=== PATIENT | female | born 1940 | race African-American/Black ===

== ENCOUNTER 2017-08-11 16:49 | Inpatient (IN) | payer MEDICARE, OTHER ==
[~2017-08-11] VITALS: Ht 157.5 cm; Wt 54.4 kg
[2017-08-11] MEDS ORDERED: Sodium Chloride 500ML 500 ML IV ONE (17:04)
[2017-08-11] MEDS ORDERED: CRESTOR10 M2 ORAL (17:10)
[2017-08-11] MEDS ORDERED: LEVOTHYROXINE50 MCG ORAL (17:10)
[2017-08-11] MEDS ORDERED: ALPRAZOLAM0.5 MG PO (17:10)
[2017-08-11] MEDS ORDERED: LEXAPRO20 MG ORAL (17:10)
[2017-08-11] MEDS ORDERED: CILOSTAZOL100 MG PO (17:10)
[2017-08-11] MEDS ORDERED: ATENOLOL50 MG ORAL (17:10)
[2017-08-11] MEDS ORDERED: RIOMET500 MG/5 M PO (17:10)
[2017-08-11] MEDS ORDERED: VITAMIN D400 INTLU ORAL (17:10)
[2017-08-11] MEDS ORDERED: TRAMADOL HCL50 MG ORAL (17:10)
[2017-08-11 17:20] VITALS: BP 123/56
[2017-08-11 18:05] LABS: BASOPHILS % (AUTO) 0.8 % (0.0-2.0); EOSINOPHILS % (AUTO) 9.9 % (0.0-3.0); HEMATOCRIT 28.1 % (37.0-47.0); HEMOGLOBIN 9.1 G/DL (12.0-16.0); LYMPHOCYTES % (AUTO) 18.8 % (20.0-45.0); MEAN CORPUSCULAR VOLUME 97 FL (80-99); MONOCYTES % (AUTO) 13.2 % (1.0-10.0); NEUTROPHILS % (AUTO) 57.3 % (45.0-75.0); PLATELET COUNT 152 K/UL (150-450); RED BLOOD COUNT 2.88 M/UL (4.20-5.40); RED CELL DISTRIBUTION WIDTH 12.6 % (11.6-14.8); WHITE BLOOD COUNT 7.6 K/UL (4.8-10.8)
[2017-08-11 18:20] LABS: INR 1.7 (0.9-1.1)
[2017-08-11 18:30] LABS: APPEARANCE,URINE SLIGHTLY CLOUDY; BILIRUBIN, URINE 1+ (NEGATIVE); COLOR,URINE AMBER; GLUCOSE, URINE (UA) NEGATIVE (NEGATIVE); KETONES,URINE 1+ (NEGATIVE); LEUKOCYTE ESTERASE ,URINE 2+ (NEGATIVE); NITRITE,URINE POSITIVE (NEGATIVE); PH,URINE 5 (4.5-8.0); PROTEIN,URINE 1+ (NEGATIVE); UROBILINOGEN,URINE 4 MG/DL (0.0-1.0)
[2017-08-11 19:07] VITALS: BP 110/53
--- NOTE | 2017-08-11 19:14 | Emergency Room Report ---
History of Present Illness General Chief Complaint: General Complaint Source: EMS Present Illness HPI Patient was brought into the emergency department today for episode of dizziness weakness and possible syncope. Patient apparently was watching TV when patient became unresponsive patient's blood pressure was checked by the caregiver noted to be very low blood pressure paramedics arrived and gave patient fluids and patient was transferred here for further evaluation. Patient is baseline nonverbal has a G-tube and has severe Parkinson's disease. No further history is available other than what was given from the caregivers. Patient does not have a history of cough runny nose sore throat fever. No history of vomiting or diarrhea. Symptoms noted to be severe it has not happened before.No other modifying factors. No other associated signs and symptoms. No other complaints were noted. Allergies: Coded Allergies: CLINDAMYCIN (Verified Allergy, Unknown, 08/11/17) IODINE (Verified Allergy, Unknown, 08/11/17) LATEX (Verified Allergy, Unknown, 08/11/17) PENICILLINS (Verified Allergy, Unknown, 08/11/17) QUETIAPINE (Verified Allergy, Unknown, 08/11/17) SULFA (SULFONAMIDE ANTIBIOTICS) (Unverified Allergy, Unknown, 08/11/17) TETANUS VACCINES AND TOXOID (Unverified Allergy, Unknown, 08/11/17) Uncoded Allergies: FISH (Allergy, Unknown, 08/11/17) TAPE ADHERENT (Allergy, Unknown, 08/11/17) Patient History Past Medical History: other - Parkinson's diseas Past Surgical History: other - G-tube Social History: Denies: smoking, alcohol use, drug use Social History Narrative has caregivers Reviewed Nursing Documentation: PMH: Agreed, PSxH: Agreed Nursing Documentation-PM Past Medical History: No History, Except For Review of Systems All Other Systems: limited - do to poor mental condition Physical Exam Vital Signs Date Time Temp Pulse Resp B/P (MAP) Pulse Ox O2 Delivery O2 Flow Rate FiO2 08/11/17 16:45 97.3 71 18 110/75 97 Room Air 97.3 Sp02 EP Interpretation: reviewed, normal General Appearance: alert, moderate distress Head: atraumatic Eyes: bilateral eye normal inspection ENT: normal ENT inspection, moist mucus membranes Neck: normal inspection, full range of motion Respiratory: normal inspection, lungs clear, normal breath sounds, no respiratory distress, no retraction, no wheezing Cardiovascular #1: regular rate, rhythm, no edema Gastrointestinal: normal inspection, non tender, soft, no hernia, other - G- tube in place Genitourinary: no CVA tenderness Musculoskeletal: other - contractures Neurologic: alert Psychiatric: other - nonverbal Skin: normal inspection, normal color, no rash Procedures Critical Care Time Critical Care Time Patient had a critical medical condition which untreated could potentially result in life or limb threatening injury. Total critical care time excluding procedures was approximately 45 minutes.ecause patient had low blood pressure require multiple exams and fluid boluses Medical Decision Making Diagnostic Impression: Primary Impression: Hypotension Additional Impression: UTI (urinary tract infection) ER Course Patient presents emergency department today with low blood pressure and possible syncope. Differential considerations include acute electrolyte abnormality, acute infectious process, dehydration, acute arrhythmia just to name a few. Given patient's low blood pressure patient was given fluids with good improvement in symptoms. Patient's EKG did not show any evidence of ST segment changes. Troponin was negative. However given patient's presentation I felt the patient require admission to the hospital. There is evidence of UTI and questionable evidence of pneumonia therefore patient was started on Levaquin. Case was discussed with Dr. Thang Tom. Patient will be admitted to telemetry for further treatment. Labs Test 08/11/17 17:40 08/11/17 17:45 08/11/17 19:45 White Blood Count 7.6 K/UL (4.8-10.8) Red Blood Count 2.88 M/UL (4.20-5.40) Hemoglobin 9.1 G/DL (12.0-16.0) Hematocrit 28.1 % (37.0-47.0) Mean Corpuscular Volume 97 FL (80-99) Mean Corpuscular Hemoglobin 31.7 PG (27.0-31.0) Mean Corpuscular Hemoglobin Concent 32.5 G/DL (32.0-36.0) Red Cell Distribution Width 12.6 % (11.6-14.8) Platelet Count 152 K/UL (150-450) Mean Platelet Volume 7.9 FL (6.5-10.1) Neutrophils (%) (Auto) 57.3 % (45.0-75.0) Lymphocytes (%) (Auto) 18.8 % (20.0-45.0) Monocytes (%) (Auto) 13.2 % (1.0-10.0) Eosinophils (%) (Auto) 9.9 % (0.0-3.0) Basophils (%) (Auto) 0.8 % (0.0-2.0) Prothrombin Time 17.4 SEC (9.30-11.50) Prothromb Time International Ratio 1.7 (0.9-1.1) Activated Partial Thromboplast Time 51 SEC (23-33) Urine Color Annabelle Urine Appearance Slightly cloudy Urine pH 5 (4.5-8.0) Urine Specific [place] 1.020 (1.005-1.035) Urine Protein 1+ (NEGATIVE) Urine Glucose (UA) Negative (NEGATIVE) Urine Ketones 1+ (NEGATIVE) Urine Occult Blood 3+ (NEGATIVE) Urine Nitrite Positive (NEGATIVE) Urine Bilirubin 1+ (NEGATIVE) Urine Ictotest Negative Urine Urobilinogen 4 MG/DL (0.0-1.0) Urine Leukocyte Esterase 2+ (NEGATIVE) Urine RBC 2-4 /HPF (0 - 2) Urine WBC 5-10 /HPF (0 - 2) Urine Squamous Epithelial Cells Moderate /LPF (NONE/OCC) Urine Bacteria Many /HPF (NONE) Sodium Level 143 MMOL/L (136-145) Potassium Level 4.1 MMOL/L (3.5-5.1) Chloride Level 112 MMOL/L (98-107) Carbon Dioxide Level 27 MMOL/L (21-32) Anion Gap 4 mmol/L (5-15) Blood Urea Nitrogen 23 mg/dL (7-18) Creatinine 0.7 MG/DL (0.55-1.30) Estimat Glomerular Filtration Rate mL/min (>60) Glucose Level 93 MG/DL (74-106) Calcium Level 8.9 MG/DL (8.5-10.1) Total Bilirubin 0.5 MG/DL (0.2-1.0) Aspartate Amino Transf (AST/SGOT) 79 U/L (15-37) Alanine Aminotransferase (ALT/SGPT) 83 U/L (12-78) Alkaline Phosphatase 61 U/L (46-116) Total Protein 5.6 G/DL (6.4-8.2) Albumin 2.4 G/DL (3.4-5.0) Globulin 3.2 g/dL Albumin/Globulin Ratio 0.8 (1.0-2.7) EKG Diagnostic Results Rate: normal Rhythm: NSR ST Segments: no acute changes Rhythm Strip Diag. Results EP Interpretation: yes Rate: 66 Rhythm: NSR, no PVC's, no ectopy Chest X-Ray Diagnostic Results Chest X-Ray Diagnostic Results : Chest X-Ray Ordered: Yes # of Views/Limited/Complete: 1 View Indication: Other - syncope EP Interpretation: Yes Interpretation: no effusion, no pneumothorax, other - right middle lobe atelectasis Electronically Signed by: Electronically signed by Meena Gutierrez MD Last Vital Signs Date Time Temp Pulse Resp B/P (MAP) Pulse Ox O2 Delivery O2 Flow Rate FiO2 08/11/17 19:07 97.3 63 14 110/53 97 Room Air 97.3 Status: improved Disposition: ADMITTED INPATIENT Condition: Serious Referrals: NON PHYSICIAN (PCP) MEENA GUTIERREZ M.D. Aug 11, 2017 19:14
[2017-08-11 20:13] LABS: ANION GAP 4 mmol/L (5-15); BLOOD UREA NITROGEN 23 mg/dL (7-18); CALCIUM 8.9 MG/DL (8.5-10.1); CARBON DIOXIDE 27 MMOL/L (21-32); CHLORIDE 112 MMOL/L (98-107); CREATININE 0.7 MG/DL (0.55-1.30); POTASSIUM 4.1 MMOL/L (3.5-5.1); SODIUM 143 MMOL/L (136-145)
[2017-08-11 20:19] LABS: ALANINE AMINOTRANSFERASE 83 U/L (12-78); ALBUMIN 2.4 G/DL (3.4-5.0); ALBUMIN/GLOBULIN RATIO 0.8 (1.0-2.7); ALKALINE PHOSPHATASE 61 U/L (46-116); ASPARTATE AMINO TRANSFERASE 79 U/L (15-37); BILIRUBIN,TOTAL 0.5 MG/DL (0.2-1.0)
[2017-08-11 20:30] VITALS: BP 145/79
[2017-08-11 21:25] VITALS: BP 140/78
[2017-08-12] VITALS: BP 110/61
[2017-08-12] MEDS ORDERED: traMADol 50mg tab ORAL PRN (03:00)
[2017-08-12] MEDS ORDERED: Morphine Sulfate 2mg/ml Inj IM PRN ×2 (03:00→08:00)
[2017-08-12] MEDS ORDERED: LORazepam Inj 2mg/ml 1ml IV PRN (03:00)
[2017-08-12 04:00] VITALS: BP 125/70
[2017-08-12] MEDS: D5 1/2NS 1,000 ML IV SCH ×2 (04:44→21:48)
[2017-08-12] MEDS: metFORMIN 500mg tab ORAL SCH ×2 (06:14→17:34)
[2017-08-12 08:00] VITALS: BP 153/89
[2017-08-12] MEDS ORDERED: ALPRAZolam 0.5mg tab ORAL PRN (09:00)
[2017-08-12] MEDS ORDERED: ALPRAZolam 0.5mg tab ORAL SCH (09:00)
[2017-08-12 09:44] LABS: BASOPHILS % (AUTO) 0.6 % (0.0-2.0); EOSINOPHILS % (AUTO) 8.3 % (0.0-3.0); HEMATOCRIT 36.8 % (37.0-47.0); HEMOGLOBIN 12.2 G/DL (12.0-16.0); LYMPHOCYTES % (AUTO) 19.3 % (20.0-45.0); MEAN CORPUSCULAR VOLUME 95 FL (80-99); NEUTROPHILS % (AUTO) 60.8 % (45.0-75.0); PLATELET COUNT 194 K/UL (150-450); RED BLOOD COUNT 3.88 M/UL (4.20-5.40); RED CELL DISTRIBUTION WIDTH 12.1 % (11.6-14.8); WHITE BLOOD COUNT 7.5 K/UL (4.8-10.8)
[2017-08-12] MEDS: Vitamin D 400 INTLU TAB ORAL SCH (09:48)
[2017-08-12] MEDS: Cilostazol 100mg tab ORAL SCH (09:48)
[2017-08-12 10:09] LABS: ANION GAP 5 mmol/L (5-15); BLOOD UREA NITROGEN 20 mg/dL (7-18); CALCIUM 8.6 MG/DL (8.5-10.1); CARBON DIOXIDE 26 MMOL/L (21-32); CHLORIDE 109 MMOL/L (98-107); CREATININE 0.6 MG/DL (0.55-1.30); POTASSIUM 4.2 MMOL/L (3.5-5.1); SODIUM 140 MMOL/L (136-145)
--- NOTE | 2017-08-12 10:47 | Diagnostic Imaging Report ---
Indication: Cough Comparison: None. FINDINGS: Single view the chest obtained. Heart size is normal. The aorta is mildly ectatic. Lungs are clear. The bones are osteopenic. There is apparent dislocation of the right shoulder. Please correlate clinically. IMPRESSION: No acute cardiopulmonary disease identified Apparent dislocation of the right shoulder
[2017-08-12 12:00] VITALS: BP 137/105
[2017-08-12] MEDS: Aztreonam Inj 1 GM in NS 55 ML IVPB SCH ×2 (14:02→21:46)
--- NOTE | 2017-08-12 14:23 | General Progress Note ---
Progress Note Progress Note [id number] full note dictated thank you SIOBHAN TURPIN Aug 12, 2017 14:23
--- NOTE | 2017-08-12 15:45 | History and Physical Report ---
DATE OF ADMISSION: 08/11/2017 ATTENDING PHYSICIAN: Thang Tom D.O. CONSULTANTS: 1. Milan Alvarado M.D. 2. Erendira Simms M.D. 3. Rolf Muñoz M.D. 4. Jamie Lopez M.D 5. Pastor Pedraza M.D. CHIEF COMPLAINT: Low blood pressure, anemia, syncope, and UTI. BRIEF HISTORY: This is a 76-year-old female, who lives at home, presents with the above-mentioned diagnoses, admitted to telemetry for further care. Currently calm, nonverbal in bed with the hansard reporter at bedside. REVIEW OF SYSTEMS: Unavailable. PAST MEDICAL HISTORY: Advanced Parkinson, contracture, CVA, diabetes, UTI, and syncope. PAST SURGICAL HISTORY: G-tube, gastric bypass. MEDICATIONS: Lipitor, levofloxacin, Tenormin, , Xanax, Synthroid, Glucophage, and Ultram. ALLERGIES: Clindamycin, iodine, levofloxacin, penicillin, quetiapine, sulfa. SOCIAL HISTORY: No smoking. No alcohol. No intravenous drug abuse. FAMILY HISTORY: Noncontributory. PHYSICAL EXAMINATION: GENERAL: Lethargic in bed, nonverbal. VITAL SIGNS: Temperature is 98, pulse 76, respirations 21, blood pressure 153/89. CARDIOVASCULAR: No murmur. LUNGS: Distant, poor exchange. ABDOMEN: Bowel sounds distant. EXTREMITIES: Show no cyanosis, clubbing, or edema. NEUROLOGIC: Contracted upper extremity, weak, in bed, not responding to verbal commands. LABORATORY DATA: Hemoglobin 9.1, otherwise, CBC is normal. BMP shows chloride 112, BUN 23. AST 79, ALT is 83. Albumin 2.4. Urinalysis shows 2+ leukocyte esterase, 1+ protein, 1+ ketones 3+ occult blood. ASSESSMENT: 1. Low blood pressure. 2. Anemia. 3. Syncope. 4. Hypoalbumin. 5. Urinary tract infection. 6. Parkinson. 7. Contracture. 8. Cerebrovascular accident. 9. Diabetes. PLAN: 1. Blood pressure and blood sugar control. 2. Dietary followup. 3. OT, PT, and dietary evaluation. 4. Antibiotics per Infectious Disease. 5. Resume home medications. 6. We will continue to follow up this patient. Thang Tom D.O. DR: Yoni JOB#: [id number] CC:
[2017-08-12 16:00] VITALS: BP 164/75
[2017-08-12] MEDS: ALPRAZolam 0.5mg tab GT PRN (16:20)
[2017-08-12] MEDS: traMADol 50mg tab GT PRN (16:20)
--- NOTE | 2017-08-12 17:03 | Cardiology Progress Note ---
Assessment/Plan Assessment/Plan The patient is seen and examined, full consult note will be dictated shortly. Objective Last 24 Hour Vital Signs Date Time Temp Pulse Resp B/P (MAP) Pulse Ox O2 Delivery O2 Flow Rate FiO2 08/12/17 16:00 97.5 73 20 164/75 95 Room Air 97.5 08/12/17 12:00 71 08/12/17 12:00 97.6 73 20 137/105 94 Room Air 97.6 08/12/17 09:48 76 153/89 08/12/17 08:00 76 08/12/17 08:00 98.2 76 21 153/89 96 Room Air 98.2 08/12/17 04:00 98.2 76 20 125/70 99 Room Air 98.2 08/12/17 04:00 79 08/12/17 00:00 97.5 69 20 110/61 95 Room Air 97.5 08/12/17 00:00 64 08/11/17 21:30 97.6 66 14 140/78 99 Room Air 97.6 08/11/17 21:25 97.6 66 14 140/78 99 Room Air 97.6 08/11/17 20:30 97.8 65 11 145/79 99 Room Air 97.8 08/11/17 19:07 97.3 63 14 110/53 97 Room Air 97.3 08/11/17 17:20 97.3 66 18 123/56 97 Room Air 97.3 Intake and Output 08/11/17 08/12/17 19:00 07:00 Intake Total 1000 ml Balance 1000 ml IV Total 1000 ml # Voids 1 6 Laboratory Tests Test 08/11/17 17:40 08/11/17 17:45 08/11/17 19:45 08/12/17 09:20 White Blood Count 7.6 K/UL (4.8-10.8) 7.5 K/UL (4.8-10.8) Red Blood Count 2.88 M/UL (4.20-5.40) L 3.88 M/UL (4.20-5.40) L Hemoglobin 9.1 G/DL (12.0-16.0) L 12.2 G/DL (12.0-16.0) # Hematocrit 28.1 % (37.0-47.0) L 36.8 % (37.0-47.0) #L Mean Corpuscular Volume 97 FL (80-99) 95 FL (80-99) Mean Corpuscular Hemoglobin 31.7 PG (27.0-31.0) H 31.3 PG (27.0-31.0) H Mean Corpuscular Hemoglobin Concent 32.5 G/DL (32.0-36.0) 33.1 G/DL (32.0-36.0) Red Cell Distribution Width 12.6 % (11.6-14.8) 12.1 % (11.6-14.8) Platelet Count 152 K/UL (150-450) 194 K/UL (150-450) Mean Platelet Volume 7.9 FL (6.5-10.1) 8.3 FL (6.5-10.1) Neutrophils (%) (Auto) 57.3 % (45.0-75.0) 60.8 % (45.0-75.0) Lymphocytes (%) (Auto) 18.8 % (20.0-45.0) L 19.3 % (20.0-45.0) L Monocytes (%) (Auto) 13.2 % (1.0-10.0) H 11.0 % (1.0-10.0) H Eosinophils (%) (Auto) 9.9 % (0.0-3.0) H 8.3 % (0.0-3.0) H Basophils (%) (Auto) 0.8 % (0.0-2.0) 0.6 % (0.0-2.0) Prothrombin Time 17.4 SEC (9.30-11.50) H Prothromb Time International Ratio 1.7 (0.9-1.1) H Activated Partial Thromboplast Time 51 SEC (23-33) H Urine Color Annabelle Urine Appearance Slightly cloudy Urine pH 5 (4.5-8.0) Urine Specific [place] 1.020 (1.005-1.035) Urine Protein 1+ (NEGATIVE) H Urine Glucose (UA) Negative (NEGATIVE) Urine Ketones 1+ (NEGATIVE) H Urine Occult Blood 3+ (NEGATIVE) H Urine Nitrite Positive (NEGATIVE) H Urine Bilirubin 1+ (NEGATIVE) H Urine Ictotest Negative Urine Urobilinogen 4 MG/DL (0.0-1.0) H Urine Leukocyte Esterase 2+ (NEGATIVE) H Urine RBC 2-4 /HPF (0 - 2) H Urine WBC 5-10 /HPF (0 - 2) H Urine Squamous Epithelial Cells Moderate /LPF (NONE/OCC) H Urine Bacteria Many /HPF (NONE) H Sodium Level 143 MMOL/L (136-145) 140 MMOL/L (136-145) Potassium Level 4.1 MMOL/L (3.5-5.1) 4.2 MMOL/L (3.5-5.1) Chloride Level 112 MMOL/L (98-107) H 109 MMOL/L (98-107) H Carbon Dioxide Level 27 MMOL/L (21-32) 26 MMOL/L (21-32) Anion Gap 4 mmol/L (5-15) L 5 mmol/L (5-15) Blood Urea Nitrogen 23 mg/dL (7-18) H 20 mg/dL (7-18) H Creatinine 0.7 MG/DL (0.55-1.30) 0.6 MG/DL (0.55-1.30) Estimat Glomerular Filtration Rate mL/min (>60) mL/min (>60) Glucose Level 93 MG/DL (74-106) 118 MG/DL (74-106) H Calcium Level 8.9 MG/DL (8.5-10.1) 8.6 MG/DL (8.5-10.1) Total Bilirubin 0.5 MG/DL (0.2-1.0) Aspartate Amino Transf (AST/SGOT) 79 U/L (15-37) H Alanine Aminotransferase (ALT/SGPT) 83 U/L (12-78) H Alkaline Phosphatase 61 U/L (46-116) Total Protein 5.6 G/DL (6.4-8.2) L Albumin 2.4 G/DL (3.4-5.0) L Globulin 3.2 g/dL Albumin/Globulin Ratio 0.8 (1.0-2.7) L JANELLE SOUZA Aug 12, 2017 17:03
[2017-08-12 18:46] LABS: APPEARANCE,URINE CLEAR; BILIRUBIN, URINE NEGATIVE (NEGATIVE); COLOR,URINE AMBER; GLUCOSE, URINE (UA) NEGATIVE (NEGATIVE); KETONES,URINE NEGATIVE (NEGATIVE); LEUKOCYTE ESTERASE ,URINE 1+ (NEGATIVE); NITRITE,URINE NEGATIVE (NEGATIVE); PH,URINE 5 (4.5-8.0); PROTEIN,URINE NEGATIVE (NEGATIVE); UROBILINOGEN,URINE 8 MG/DL (0.0-1.0)
--- NOTE | 2017-08-12 19:30 | Consultation ---
DATE OF CONSULTATION: 08/12/2017 CONSULTING PHYSICIAN: Pastor Pedraza M.D. CHIEF COMPLAINT: Elevated residuals, anemia. HISTORY OF PRESENT ILLNESS: Most of the history per chart. This is a 76-year-old female with past medical history of Parkinson disease, history of dysphagia with G-tube, hypothyroidism, hypercholesterolemia, and vitamin D deficiency, admitted to the hospital with possible syncope and low blood pressure. Currently, the GI issue would be that the patient has a high residuals on the G-tube and GI consult requested for further evaluation. PAST MEDICAL HISTORY: 1. Parkinson disease. 2. Dysphagia with G-tube. 3. Hypothyroidism. 4. Diabetes. 5. Vitamin D deficiency. ALLERGIES: Clindamycin, iodine, latex, levofloxacin, penicillin, quetiapine, sulfa, tetanus shot. SOCIAL HISTORY: Currently lives at home with a caregiver. No recent history of tobacco, alcohol, or IV drug abuse. FAMILY HISTORY: Noncontributory. REVIEW OF SYSTEMS: Limited. PHYSICAL EXAMINATION: VITAL SIGNS: Temperature is 98.2 degrees, pulse is 72, respirations 21, and blood pressure is 152/89. HEENT: Normocephalic and atraumatic. Sclerae anicteric. NECK: Supple. No lymphadenopathy. CARDIOVASCULAR: Regular rhythm. Plus S1 and S2. LUNGS: Decreased breath sounds bilateral bases on supine exam. ABDOMEN: Soft. Bowel sounds are present. No rebound. No guarding. No peritoneal sign. G-tube placed in the left upper quadrant. EXTREMITIES: No cyanosis. No clubbing. No edema. LABORATORY DATA: White count 7.5, hemoglobin 12, hematocrit 36, and platelet count is 194,000. Chem-7, sodium 140 potassium 4.2, BUN is 20, and creatinine is 0.6. AST 79 and AST is 83. Albumin is 2.4. ASSESSMENT AND PLAN: A 76-year-old female with Parkinson disease with the gastrostomy tube. Apparently, she is not tolerating tube feeding because of elevated residuals, but given the Parkinson disease, unfortunately we cannot give any Reglan. Plan to get a KUB to rule out stool impaction, although nurses stated the patient had a bowel movement yesterday. Repeated liver function tests for tomorrow given mild transaminitis. Restarted tube feeding and monitor. Follow with rest of taking care of this patient. I want to thank Dr. Thang Tom for this kind referral. Pastor Pedraza M.D. DR: Holly JOB#: [id number] CC: Thang Tom D.O.
[2017-08-12 20:00] VITALS: BP 111/59
[2017-08-12] MEDS: Atorvastatin 20mg tab ORAL SCH (21:47)
[2017-08-12] MEDS: Heparin 5000 units/ml inj SUBQ SCH (21:49)
--- NOTE | 2017-08-12 23:40 | Consultation ---
Consult Note Consult Note ID [id number] ANDERSON NEFF M.D. Aug 12, 2017 23:40
[2017-08-13] VITALS: BP 139/77
--- NOTE | 2017-08-13 00:15 | Consultation ---
DATE OF CONSULTATION: 08/12/2017 NEPHROLOGY CONSULTATION CONSULTING PHYSICIAN: Erendira Simms M.D. REFERRING PHYSICIAN: Thang Tom D.O. REASON FOR CONSULTATION: Electrolyte imbalance. HISTORY OF PRESENT ILLNESS: The patient is a very unfortunate 76-year-old female with past medical history significant for history of diabetes, hypertension, dyslipidemia, apparently about 12 years ago, the patient had a stroke and post first stroke, she was able to walk. She continued to have probably multiple strokes and she ended up having a contraction on the right upper extremity, but she was able to move the right lower extremity. Later on, she probably had another stroke and got the left-sided weakness. She basically later on was diagnosed with Parkinson disease and being bedbound and has 24-hour caregiver. Apparently, the patient was at home with her caregiver and she found to be unconscious and the caregiver checked her blood pressure, which found to be low. The patient was brought into the emergency room, was given bolus of intravenous fluids, and was admitted to the telemetry unit. I was called for management of renal disease and electrolyte imbalance. PAST MEDICAL HISTORY: 1. History of hypertension. 2. History of diabetes. 3. History of Parkinson disease. 4. History of multiple strokes. 5. History of hypothyroidism. 6. History of dyslipidemia. 7. History of bedbound and contraction. PAST SURGICAL HISTORY: History of multiple PEG placement. MEDICATIONS: Home medications includin. Xanax 0.5 mg p.r.n. 2. Atenolol 50 mg p.o. daily. 3. 100 mg p.o. daily. 4. Lexapro 20 mg p.o. daily. 5. Levothyroxine 50 mcg daily. 6. Metformin 500 mg p.o. b.i.d. 7. Crestor 10 mg p.o. daily. 8. Tramadol 50 mg p.o. daily. 9. Vitamin D 400 units p.o. daily. FAMILY HISTORY: Noncontributory. REVIEW OF SYSTEMS: Very limited, basically obtained through the 24-hour caregiver, who has been at bedside.GENERAL: There is no weight loss. No fever or chills as reported. PULMONARY: There was no cough or sputum. CARDIOVASCULAR: No palpitation or chest pain. GASTROINTESTINAL: Has a PEG, which she has been receiving Glucerna 1.2 44 mL at home with some residual. GENITOURINARY: No dysuria, frequency, or hematuria. PHYSICAL EXAMINATION: VITAL SIGNS: The patient had temperature of 98 degrees, blood pressure of 110/75, pulse rate of 71, and respiratory rate of 18. HEAD AND NECK: No JVP. No LAD. No thyromegaly. Extraocular movements intact. Pupils are reactive to light and accommodation. LUNGS: Has decreased breathing sounds on the both sides. CARDIAC: Regular rate and rhythm. S1 and S2. No murmur. No rub. ABDOMEN: Soft. PEG is in place. EXTREMITIES: No edema. No clubbing. No cyanosis. LABORATORY AND DIAGNOSTIC DATA: Lab values on admission, the patient had sodium 143, potassium 4.1, chloride 102, bicarbonate 27, BUN is 22, creatinine of 0.7, glucose of 93, and calcium 8.9. AST 79, ALT of 83. Total protein of 5.6. Globulin of 2.4. CBC revealed WBC count of 7.6, hemoglobin of 9.1, hematocrit of 28, and platelet count of 152. UA revealed specific gravity of 1.020, pH of 5, ketones 1+, blood 3+, nitrite positive, RBCs 2 to 4, and WBCs 5 to 10. INR of 1.7. She had a chest x-ray, which showed no cardiopulmonary disease. ASSESSMENT: 1. , most likely due to dehydration and prerenal azotemia. 2. Urinary tract infection. 3. History of Parkinson disease. 4. History of multiple stroke. 5. History of diabetes. 6. History of hypertension. 7. History of hypothyroidism. PLAN: Plan for the patient is to repeat the UA. Check the random urine protein and creatinine ratio to calculate the proteinuria. Check the microalbumin level for diabetic evaluation and check the A1c, recommended for this patient is 6 to 7. Hold antihypertensive medications. At the end, I would like to thank, Dr. Thang Tom, for allowing me to participate in the care of this patient. Erendira Simms M.D. DR: Priscila JOB#: [id number] CC:
[2017-08-13] MEDS: ALPRAZolam 0.5mg tab GT PRN ×3 (02:46→20:21)
[2017-08-13] MEDS: traMADol 50mg tab GT PRN ×3 (02:47→20:22)
[2017-08-13 04:00] VITALS: BP 139/76
--- NOTE | 2017-08-13 05:00 | Consultation ---
DATE OF CONSULTATION: 08/13/2017 INFECTIOUS DISEASE CONSULTATION CONSULTING PHYSICIAN: Jamie Lopez M.D. REFERRING PHYSICIAN: Thang Tom D.O. REASON FOR CONSULTATION: Evaluation of the patient for urinary tract infection, sepsis, antibiotic management. HISTORY OF PRESENT ILLNESS: The patient is a 76-year-old female with multiple medical problems, who lives at home with caregivers, was brought to the hospital due to the hypertension and lethargy. The patient was admitted with impression of sepsis, possible urinary tract infection. Infectious Disease consultation has been requested for further evaluation of the patient and antibiotic management. PAST MEDICAL HISTORY: 1. Diabetes. 2. History of recurrent UTI. 3. History of CVA. 4. History of contractions. 5. Parkinson disease. 6. History of G-tube placement and gastric bypass in the past. ALLERGIES: Multiple including clindamycin, iodine level, levofloxacin, penicillin, and sulfa. SOCIAL HISTORY: The patient lives at home with caregivers. FAMILY HISTORY: Noncontributory. REVIEW OF SYSTEMS: Unobtainable. Much of the information gathered through the chart and speaking to staff. PHYSICAL EXAMINATION: VITAL SIGNS: Temperature 97, blood pressure 139/77, pulse 86, and respiratory rate 18. HEENT: No pale conjunctivae. No icterus. NECK: No lymphadenopathy. CHEST: Clear. HEART: S1 and S2. ABDOMEN: Soft and nontender. PEG tube in place. EXTREMITIES: No cyanosis at this time. NEUROLOGIC: Awake and lethargic. LABORATORY AND DIAGNOSTIC DATA: Labs, white blood cells 7.5, hemoglobin 12, and platelets 194. UA shows 5 to 10 white blood cells. BUN 20 and creatinine 0.6. AST 79, ALT 82, and alkaline phosphatase 61. Chest x-ray, N[facility]. ASSESSMENT: The patient is a 76-year-old female with: 1. Possible sepsis. 2. Rule out urinary tract infection. 3. Transaminitis, rule out biliary disease, rule out chronic hepatitis B/C. PLAN: 1. We will continue the patient on aztreonam day #1. 2. Monitor CBC. 3. Monitor BMP. 4. Monitor cultures, blood and urine. 5. Monitor the patient's clinical course. 6. Ultrasound of the liver. 7. Hepatitis panel. 8. Based on the patient's clinical course and labs, we will do further recommendations. Thank you, Dr. Saunders, for allowing me to participate in the care of this patient. I will follow the patient with you during this hospitalization. Jamie Lopez M.D. DR: Michael JOB#: [id number] CC:
[2017-08-13] MEDS: Aztreonam Inj 1 GM in NS 55 ML IVPB SCH ×3 (05:15→20:22)
[2017-08-13] MEDS: metFORMIN 500mg tab ORAL SCH ×2 (07:30→16:59)
[2017-08-13 08:00] VITALS: BP 153/78
[2017-08-13] MEDS: Vitamin D 400 INTLU TAB ORAL SCH (08:30)
[2017-08-13] MEDS: Cilostazol 100mg tab ORAL SCH (08:30)
[2017-08-13] MEDS: Heparin 5000 units/ml inj SUBQ SCH ×2 (08:37→20:23)
--- NOTE | 2017-08-13 09:09 | General Progress Note ---
Assessment/Plan Problem List: (1) Hypoalbuminemia ICD Codes: E88.09 - Other disorders of plasma-protein metabolism, not elsewhere classified SNOMED: 645259636 (2) Parkinson disease ICD Codes: G20 - Parkinson's disease SNOMED: 35453003 (3) CVA (cerebral vascular accident) ICD Codes: I63.9 - Cerebral infarction, unspecified SNOMED: 848805968 (4) Syncopal episodes ICD Codes: R55 - Syncope and collapse SNOMED: 141110251 (5) Anemia ICD Codes: D64.9 - Anemia, unspecified SNOMED: 652581956 (6) Dehydration ICD Codes: E86.0 - Dehydration SNOMED: 33409844 (7) Hypotension ICD Codes: I95.9 - Hypotension, unspecified SNOMED: 25217204 (8) UTI (urinary tract infection) ICD Codes: N39.0 - Urinary tract infection, site not specified SNOMED: 00123735 Status: unchanged Assessment/Plan ot pt diet abx cbc bmp am Subjective Constitutional: Reports: weakness Allergies: Coded Allergies: CLINDAMYCIN (Verified Allergy, Unknown, 08/11/17) IODINE (Verified Allergy, Unknown, 08/11/17) LATEX (Verified Allergy, Unknown, 08/11/17) LEVOFLOXACIN (Verified Allergy, Unknown, rash, 08/11/17) PENICILLINS (Verified Allergy, Unknown, 08/11/17) QUETIAPINE (Verified Allergy, Unknown, 08/11/17) SULFA (SULFONAMIDE ANTIBIOTICS) (Unverified Allergy, Unknown, 08/11/17) TETANUS VACCINES AND TOXOID (Unverified Allergy, Unknown, 08/11/17) Uncoded Allergies: FISH (Allergy, Unknown, 08/11/17) TAPE ADHERENT (Allergy, Unknown, 08/11/17) All Systems: reviewed and negative except above Subjective calm in bed confused Objective Last 24 Hour Vital Signs Date Time Temp Pulse Resp B/P (MAP) Pulse Ox O2 Delivery O2 Flow Rate FiO2 08/13/17 08:30 71 153/78 08/13/17 08:00 97.2 71 18 153/78 95 97.2 08/13/17 04:00 72 08/13/17 04:00 97.2 70 18 139/76 97 97.2 08/13/17 00:00 67 3/4/18 00:00 97.7 69 16 139/77 95 97.7 08/12/17 20:00 97.5 70 16 111/59 96 97.5 08/12/17 20:00 76 08/12/17 17:33 164/75 08/12/17 16:00 76 08/12/17 16:00 97.5 73 20 164/75 95 Room Air 97.5 08/12/17 12:00 71 08/12/17 12:00 97.6 73 20 137/105 94 Room Air 97.6 08/12/17 09:48 76 153/89 Intake and Output 08/12/17 08/13/17 19:00 07:00 Intake Total 386 ml Balance 386 ml Intake Free Water 60 ml Tube Feeding 326 ml # Voids 2 4 Laboratory Tests 08/12/17 09:20: White Blood Count 7.5, Red Blood Count 3.88L, Hemoglobin 12.2#, Hematocrit 36.8# L, Mean Corpuscular Volume 95, Mean Corpuscular Hemoglobin 31.3H, Mean Corpuscular Hemoglobin Concent 33.1, Red Cell Distribution Width 12.1, Platelet Count 194, Mean Platelet Volume 8.3, Neutrophils (%) (Auto) 60.8, Lymphocytes (% ) (Auto) 19.3L, Monocytes (%) (Auto) 11.0H, Eosinophils (%) (Auto) 8.3H, Basophils (%) (Auto) 0.6, Sodium Level 140, Potassium Level 4.2, Chloride Level 109H, Carbon Dioxide Level 26, Anion Gap 5, Blood Urea Nitrogen 20H, Creatinine 0.6, Estimat Glomerular Filtration Rate , Glucose Level 118H, Calcium Level 8.6 08/12/17 18:00: Urine Color Annabelle, Urine Appearance Clear, Urine pH 5, Urine Specific [place] 1.020, Urine Protein Negative, Urine Glucose (UA) Negative, Urine Ketones Negative, Urine Occult Blood Negative, Urine Nitrite Negative, Urine Bilirubin Negative, Urine Ictotest Negative, Urine Urobilinogen 8H, Urine Leukocyte Esterase 1+H, Urine RBC 0-2, Urine WBC 5-10H, Urine Squamous Epithelial Cells ModerateH, Urine Bacteria Few, Urine Mucus FewH, Urine Random Creatinine [ Pending], Urine Random Microalbumin [Pending], Urine Random Total Protein 21H, Urine Random Sodium 168H, Urine Creatinine 75.1, Urine Microalbumin/Creatinine Ratio [Pending] Height (Feet): 5 Height (Inches): 2.00 Weight (Pounds): 120 General Appearance: lethargic EENT: normal ENT inspection Neck: normal alignment Cardiovascular: normal peripheral pulses, normal rate, regular rhythm Respiratory/Chest: chest wall non-tender, lungs clear, normal breath sounds Abdomen: normal bowel sounds, non tender, soft Extremities: normal inspection Edema: no edema noted Arm (L), no edema noted Arm (R), no edema noted Leg (L), no edema noted Leg (R), no edema noted Pedal (L), no edema noted Pedal (R), no edema noted Generalized Neurologic: motor weakness Skin: normal pigmentation, warm/dry BREN FLOWERS Aug 13, 2017 09:09
--- NOTE | 2017-08-13 09:29 | General Progress Note ---
Assessment/Plan Problem List: (1) Feeding by G-tube ICD Codes: Z93.1 - Gastrostomy status SNOMED: 893019632, 556230391 (2) DM (3) CVA (cerebral vascular accident) ICD Codes: I63.9 - Cerebral infarction, unspecified SNOMED: 446019478 (4) Hypoalbuminemia ICD Codes: E88.09 - Other disorders of plasma-protein metabolism, not elsewhere classified SNOMED: 796893906 (5) Parkinson disease ICD Codes: G20 - Parkinson's disease SNOMED: 51074507 (6) Anemia ICD Codes: D64.9 - Anemia, unspecified SNOMED: 920499670 Assessment/Plan tolerating GTF will increase rate to 55 fu labs dvt prophylaxis Subjective ROS Limited/Unobtainable: No Allergies: Coded Allergies: CLINDAMYCIN (Verified Allergy, Unknown, 08/11/17) IODINE (Verified Allergy, Unknown, 08/11/17) LATEX (Verified Allergy, Unknown, 08/11/17) LEVOFLOXACIN (Verified Allergy, Unknown, rash, 08/11/17) PENICILLINS (Verified Allergy, Unknown, 08/11/17) QUETIAPINE (Verified Allergy, Unknown, 08/11/17) SULFA (SULFONAMIDE ANTIBIOTICS) (Unverified Allergy, Unknown, 08/11/17) TETANUS VACCINES AND TOXOID (Unverified Allergy, Unknown, 08/11/17) Uncoded Allergies: FISH (Allergy, Unknown, 08/11/17) TAPE ADHERENT (Allergy, Unknown, 08/11/17) Objective Last 24 Hour Vital Signs Date Time Temp Pulse Resp B/P (MAP) Pulse Ox O2 Delivery O2 Flow Rate FiO2 08/13/17 08:30 71 153/78 08/13/17 08:00 97.2 71 18 153/78 95 97.2 08/13/17 04:00 72 08/13/17 04:00 97.2 70 18 139/76 97 97.2 08/13/17 00:00 67 08/13/17 00:00 97.7 69 16 139/77 95 97.7 08/12/17 20:00 97.5 70 16 111/59 96 97.5 08/12/17 20:00 76 08/12/17 17:33 164/75 08/12/17 16:00 76 08/12/17 16:00 97.5 73 20 164/75 95 Room Air 97.5 08/12/17 12:00 71 08/12/17 12:00 97.6 73 20 137/105 94 Room Air 97.6 08/12/17 09:48 76 153/89 Intake and Output 08/12/17 08/13/17 19:00 07:00 Intake Total 386 ml 1109 ml Balance 386 ml 1109 ml Intake Free Water 60 ml 30 ml IV Total 595 ml Tube Feeding 326 ml 484 ml # Voids 2 4 Laboratory Tests 08/12/17 18:00: Urine Color Annabelle, Urine Appearance Clear, Urine pH 5, Urine Specific [place] 1.020, Urine Protein Negative, Urine Glucose (UA) Negative, Urine Ketones Negative, Urine Occult Blood Negative, Urine Nitrite Negative, Urine Bilirubin Negative, Urine Ictotest Negative, Urine Urobilinogen 8H, Urine Leukocyte Esterase 1+H, Urine RBC 0-2, Urine WBC 5-10H, Urine Squamous Epithelial Cells ModerateH, Urine Bacteria Few, Urine Mucus FewH, Urine Random Creatinine [ Pending], Urine Random Microalbumin [Pending], Urine Random Total Protein 21H, Urine Random Sodium 168H, Urine Creatinine 75.1, Urine Microalbumin/Creatinine Ratio [Pending] Height (Feet): 5 Height (Inches): 2.00 Weight (Pounds): 120 General Appearance: no apparent distress EENT: normal ENT inspection Neck: supple Cardiovascular: normal rate Respiratory/Chest: decreased breath sounds Abdomen: normal bowel sounds, non tender, soft Extremities: non-tender STEPHANIE RICK Aug 13, 2017 09:29
[2017-08-13 12:00] VITALS: BP 157/104
--- NOTE | 2017-08-13 12:12 | Diagnostic Imaging Report ---
Indication: Abdominal pain Comparison: None Single view of the abdomen obtained Findings: Bones are osteopenic. The aorta is severely calcified. Degenerative changes of the spine noted. Bowel gas pattern is nonspecific. IMPRESSION: No acute findings
[2017-08-13 12:26] LABS: BASOPHILS % (AUTO) 0.9 % (0.0-2.0); EOSINOPHILS % (AUTO) 9.2 % (0.0-3.0); HEMATOCRIT 40.1 % (37.0-47.0); HEMOGLOBIN 13.4 G/DL (12.0-16.0); LYMPHOCYTES % (AUTO) 21.6 % (20.0-45.0); MEAN CORPUSCULAR VOLUME 94 FL (80-99); MONOCYTES % (AUTO) 10.4 % (1.0-10.0); NEUTROPHILS % (AUTO) 57.9 % (45.0-75.0); PLATELET COUNT 204 K/UL (150-450); RED BLOOD COUNT 4.28 M/UL (4.20-5.40); RED CELL DISTRIBUTION WIDTH 11.7 % (11.6-14.8); WHITE BLOOD COUNT 7.6 K/UL (4.8-10.8)
[2017-08-13 12:41] LABS: ALANINE AMINOTRANSFERASE 60 U/L (12-78); ALBUMIN 2.6 G/DL (3.4-5.0); ALBUMIN/GLOBULIN RATIO 0.7 (1.0-2.7); ALKALINE PHOSPHATASE 68 U/L (46-116); ANION GAP 5 mmol/L (5-15); ASPARTATE AMINO TRANSFERASE 50 U/L (15-37); BILIRUBIN,TOTAL 0.6 MG/DL (0.2-1.0); BLOOD UREA NITROGEN 15 mg/dL (7-18); CALCIUM 8.9 MG/DL (8.5-10.1); CARBON DIOXIDE 26 MMOL/L (21-32); CHLORIDE 106 MMOL/L (98-107); CREATININE 0.6 MG/DL (0.55-1.30); POTASSIUM 4.6 MMOL/L (3.5-5.1); SODIUM 137 MMOL/L (136-145)
[2017-08-13] MEDS: D5 1/2NS 1,000 ML IV SCH (13:27)
--- NOTE | 2017-08-13 14:45 | Infectious Diseases Prog Note ---
Assessment/Plan Assessment/Plan ASSESSMENT: The patient is a 76-year-old female with: Probable sepsis Probable urinary tract infection. Weakness 2/2 to above Transaminitis, rule out biliary disease, rule out chronic hepatitis B/C. Chest x-ray, NAPD Diabetes. History of recurrent UTI. , UCx : 100K history of CVA. History of contractions. Parkinson disease. History of G-tube placement and gastric bypass in the past. ALLERGIES: Multiple including clindamycin, iodine level, levofloxacin, penicillin, and sulfa. PLAN: continue the patient on aztreonam day # 2/ 5 Monitor CBC Monitor BMP. Monitor cultures ( blood and urine ) Ultrasound of the liver Hepatitis panel. Subjective Constitutional: Denies: no symptoms, fever, chills, fatigue, anorexia, drenching sweats, other Allergies: Coded Allergies: CLINDAMYCIN (Verified Allergy, Unknown, 08/11/17) IODINE (Verified Allergy, Unknown, 08/11/17) LATEX (Verified Allergy, Unknown, 08/11/17) LEVOFLOXACIN (Verified Allergy, Unknown, rash, 08/11/17) PENICILLINS (Verified Allergy, Unknown, 08/11/17) QUETIAPINE (Verified Allergy, Unknown, 08/11/17) SULFA (SULFONAMIDE ANTIBIOTICS) (Unverified Allergy, Unknown, 08/11/17) TETANUS VACCINES AND TOXOID (Unverified Allergy, Unknown, 08/11/17) Uncoded Allergies: FISH (Allergy, Unknown, 08/11/17) TAPE ADHERENT (Allergy, Unknown, 08/11/17) Objective Vital Signs Last 24 Hour Vital Signs Date Time Temp Pulse Resp B/P (MAP) Pulse Ox O2 Delivery O2 Flow Rate FiO2 08/13/17 12:32 97.2 08/13/17 12:00 97.9 73 22 157/104 98 97.9 08/13/17 12:00 73 08/13/17 08:30 71 153/78 08/13/17 08:00 66 08/13/17 08:00 97.2 71 18 153/78 95 97.2 08/13/17 04:00 72 08/13/17 04:00 97.2 70 18 139/76 97 97.2 08/13/17 00:00 67 08/13/17 00:00 97.7 69 16 139/77 95 97.7 08/12/17 20:00 97.5 70 16 111/59 96 97.5 08/12/17 20:00 76 08/12/17 17:33 164/75 08/12/17 16:00 76 08/12/17 16:00 97.5 73 20 164/75 95 Room Air 97.5 Height (Feet): 5 Height (Inches): 2.00 Weight (Pounds): 120 HEENT: mucous membranes moist Respiratory/Chest: normal breath sounds Cardiovascular: regular rhythm Abdomen: soft, non tender Microbiology Date/Time Source Procedure Growth Status 08/11/17 17:40 Blood Blood Culture - Preliminary NO GROWTH AFTER 24 HOURS Resulted 08/11/17 17:45 Urine,Clean Catch Urine Culture - Preliminary Gram Negative Bacillus 1 Resulted Laboratory Tests Test 08/12/17 18:00 08/13/17 11:55 Urine Color Annabelle Urine Appearance Clear Urine pH 5 (4.5-8.0) Urine Specific [place] 1.020 (1.005-1.035) Urine Protein Negative (NEGATIVE) Urine Glucose (UA) Negative (NEGATIVE) Urine Ketones Negative (NEGATIVE) Urine Occult Blood Negative (NEGATIVE) Urine Nitrite Negative (NEGATIVE) Urine Bilirubin Negative (NEGATIVE) Urine Ictotest Negative Urine Urobilinogen 8 MG/DL (0.0-1.0) H Urine Leukocyte Esterase 1+ (NEGATIVE) H Urine RBC 0-2 /HPF (0 - 2) Urine WBC 5-10 /HPF (0 - 2) H Urine Squamous Epithelial Cells Moderate /LPF (NONE/OCC) H Urine Bacteria Few /HPF (NONE) Urine Mucus Few /LPF (NONE/OCC) H Urine Random Creatinine Pending Urine Random Microalbumin Pending Urine Random Total Protein 21 MG/DL (< 11.9) H Urine Random Sodium 168 mmol/L (20-110) H Urine Creatinine 75.1 MG/DL (30.0-125.0) Urine Microalbumin/Creatinine Ratio Pending White Blood Count 7.6 K/UL (4.8-10.8) Red Blood Count 4.28 M/UL (4.20-5.40) Hemoglobin 13.4 G/DL (12.0-16.0) Hematocrit 40.1 % (37.0-47.0) Mean Corpuscular Volume 94 FL (80-99) Mean Corpuscular Hemoglobin 31.3 PG (27.0-31.0) H Mean Corpuscular Hemoglobin Concent 33.5 G/DL (32.0-36.0) Red Cell Distribution Width 11.7 % (11.6-14.8) Platelet Count 204 K/UL (150-450) Mean Platelet Volume 8.7 FL (6.5-10.1) Neutrophils (%) (Auto) 57.9 % (45.0-75.0) Lymphocytes (%) (Auto) 21.6 % (20.0-45.0) Monocytes (%) (Auto) 10.4 % (1.0-10.0) H Eosinophils (%) (Auto) 9.2 % (0.0-3.0) H Basophils (%) (Auto) 0.9 % (0.0-2.0) Sodium Level 137 MMOL/L (136-145) Potassium Level 4.6 MMOL/L (3.5-5.1) Chloride Level 106 MMOL/L (98-107) Carbon Dioxide Level 26 MMOL/L (21-32) Anion Gap 5 mmol/L (5-15) Blood Urea Nitrogen 15 mg/dL (7-18) Creatinine 0.6 MG/DL (0.55-1.30) Estimat Glomerular Filtration Rate mL/min (>60) Glucose Level 100 MG/DL (74-106) Calcium Level 8.9 MG/DL (8.5-10.1) Total Bilirubin 0.6 MG/DL (0.2-1.0) Aspartate Amino Transf (AST/SGOT) 50 U/L (15-37) H Alanine Aminotransferase (ALT/SGPT) 60 U/L (12-78) Alkaline Phosphatase 68 U/L (46-116) Total Protein 6.1 G/DL (6.4-8.2) L Albumin 2.6 G/DL (3.4-5.0) L Globulin 3.5 g/dL Albumin/Globulin Ratio 0.7 (1.0-2.7) L Hepatitis A IgM Antibody Pending Hepatitis B Surface Antigen Pending Hepatitis B Core IgM Antibody Pending Hepatitis C Antibody Pending Current Medications Medications (Trade) Dose Ordered Sig/Alice Route PRN Reason Start Time Stop Time Status Last Admin Dose Admin Alprazolam (Xanax) 0.5 mg EVERY 8 HOURS PRN GT For Anxiety 3/3/18 13:45 08/19/17 08:59 08/13/17 12:33 Atenolol (Tenormin) 50 mg DAILY ORAL 08/12/17 09:00 09/11/17 08:59 08/13/17 08:30 Atorvastatin Calcium (Lipitor) 40 mg BEDTIME ORAL 08/12/17 21:00 09/11/17 20:59 08/12/17 21:47 Aztreonam 1 gm/ Sodium Chloride 55 ml @ 110 mls/hr Q8H IVPB 08/12/17 12:00 08/19/17 11:59 08/13/17 12:43 Cilostazol (Pletal) 100 mg DAILY ORAL 08/12/17 09:00 09/11/17 08:59 08/13/17 08:30 Clonidine HCl (Catapres Tab) 0.1 mg Q8H PRN ORAL sbp>160 08/12/17 17:15 09/11/17 17:14 08/12/17 17:33 Dextrose/Sodium Chloride 1,000 ml @ 60 mls/hr [id number] IV 08/12/17 04:30 09/11/17 04:29 08/13/17 13:27 Escitalopram Oxalate (Lexapro) 20 mg DAILY ORAL 08/12/17 09:00 09/11/17 08:59 08/13/17 08:30 Heparin Sodium (Porcine) (Heparin 5000 units/ml) 5,000 units EVERY 12 HOURS SUBQ 08/12/17 21:00 09/11/17 20:59 08/13/17 08:37 Levothyroxine Sodium (Synthroid) 50 mcg DAILY@0630 ORAL 08/12/17 06:30 09/11/17 06:29 08/13/17 07:30 Lorazepam (Ativan 2mg/ml 1ml) 1 mg Q4H PRN IV For Anxiety 08/12/17 03:00 08/19/17 02:59 Metformin HCl (Glucophage) 500 mg BIAC ORAL 08/12/17 06:30 09/11/17 06:29 08/13/17 07:30 Morphine Sulfate (Morphine Sulfate) 2 mg Q4H PRN IM MOD-SEVERE PAIN 4-10 08/12/17 08:00 08/19/17 02:59 Tramadol HCl (Ultram) 50 mg EVERY 8 HOURS PRN GT pain 08/12/17 13:45 08/19/17 02:59 08/13/17 12:32 Vitamin D (Vitamin D) 400 intlu DAILY ORAL 08/12/17 09:00 09/11/17 08:59 08/13/17 08:30 ANDERSON NEFF M.D. Aug 13, 2017 14:45
--- NOTE | 2017-08-13 15:29 | Cardiology Report ---
APPROVED REPORT EXAM: Two-dimensional and M-mode echocardiogram with Doppler and color Doppler. INDICATION Syncope M-Mode DIMENSIONS IVSd1.0 (0.7-1.1cm)Left Atrium (MM)3.5 (1.6-4.0cm) LVDd4.8 (3.5-5.6cm)Aortic Root2.9 (2.0-3.7cm) PWd1.4 (0.7-1.1cm)Aortic Cusp Exc.1.1 (1.5-2.0cm) IVSs1.7 cm LVDs2.9 (2.5-4.0cm) PWs1.9 cm Normal left ventricular chamber size, systolic function and wall motion. Left ventricular ejection fraction estimated to be 65-70 %. Mild left ventricular hypertrophy by 2-D. Trace posterior pericardial effusion . Right cardiac chamber sizes are within normal limits . Heavy Focal aortic valve sclerosis . Heavy Thickened mitral valve leaflets . Mitral annulus and aortic root calcification. Pulmonic valve not well visualized. Normal tricuspid valve structure. Subcostal views not obtained due to GI-.tube A color flow and spectral Doppler study was performed and revealed: Mild aortic regurgitation. Peak aortic valve gradient of 5 mm Hg and a mean of 2 mmHg. Aortic valve area 2.1 cm2 calculated by continuity equation. Mild mitral regurgitation. Mitral diastolic velocities suggest reduced left ventricular relaxation c/w mild LV diastolic dysfunction (Grade I ). Mild tricuspid regurgitation. Tricuspid systolic velocities suggests peak right ventricular systolic pressure of 25 mmHg, No Pulmonic regurgitation present
[2017-08-13 16:00] VITALS: BP 125/85
[2017-08-13] MEDS ORDERED: D5 1/2NS 1000ml IV ONE (16:37)
[2017-08-13] MEDS ORDERED: Sterile Water Irrig 1000ml IRRIG ONE (16:37)
[2017-08-13] MEDS ORDERED: Tubing IV Secondary IV ONE (16:37)
[2017-08-13] MEDS ORDERED: NEUPRO1 EAC1 TD (19:52)
[2017-08-13] MEDS ORDERED: NEUPRO1 EAC2 TD (19:52)
[2017-08-13 20:00] VITALS: BP 134/80
[2017-08-13] MEDS: Atorvastatin 20mg tab ORAL SCH (20:21)
--- NOTE | 2017-08-13 21:11 | Nephrology Progress Note ---
Assessment/Plan Assessment 1,EULALIA most likely due to dehydration and prerenal azotemia. 2. Urinary tract infection. 3. History of Parkinson disease. 4. History of multiple stroke. 5. History of diabetes. 6. History of hypertension. 7. History of hypothyroidism. Plan Plan continue ivf monitoring renal function avoid NSAID replace electrolyte as need it Subjective Constitutional: Reports: no symptoms HEENT: Reports: no symptoms Genitourinary: Reports: no symptoms Neurologic/Psychiatric: Reports: no symptoms Subjective pt is nit verbal Objective Objective Last 24 Hour Vital Signs Date Time Temp Pulse Resp B/P (MAP) Pulse Ox O2 Delivery O2 Flow Rate FiO2 08/13/17 16:00 97.2 75 20 125/85 98 97.2 08/13/17 16:00 77 08/13/17 12:32 97.2 08/13/17 12:00 97.9 73 22 157/104 98 97.9 08/13/17 12:00 73 08/13/17 08:30 71 153/78 08/13/17 08:00 66 08/13/17 08:00 97.2 71 18 153/78 95 97.2 08/13/17 04:00 72 08/13/17 04:00 97.2 70 18 139/76 97 97.2 08/13/17 00:00 67 08/13/17 00:00 97.7 69 16 139/77 95 97.7 Intake and Output 08/12/17 08/13/17 19:00 07:00 Intake Total 386 ml 1109 ml Balance 386 ml 1109 ml Intake Free Water 60 ml 30 ml IV Total 595 ml Tube Feeding 326 ml 484 ml # Voids 2 4 Laboratory Tests 08/13/17 11:55: White Blood Count 7.6, Red Blood Count 4.28, Hemoglobin 13.4, Hematocrit 40.1, Mean Corpuscular Volume 94, Mean Corpuscular Hemoglobin 31.3H, Mean Corpuscular Hemoglobin Concent 33.5, Red Cell Distribution Width 11.7, Platelet Count 204, Mean Platelet Volume 8.7, Neutrophils (%) (Auto) 57.9, Lymphocytes (%) (Auto) 21.6, Monocytes (%) (Auto) 10.4H, Eosinophils (%) (Auto) 9.2H, Basophils (%) ( Auto) 0.9, Sodium Level 137, Potassium Level 4.6, Chloride Level 106, Carbon Dioxide Level 26, Anion Gap 5, Blood Urea Nitrogen 15, Creatinine 0.6, Estimat Glomerular Filtration Rate , Glucose Level 100, Calcium Level 8.9, Total Bilirubin 0.6, Aspartate Amino Transf (AST/SGOT) 50H, Alanine Aminotransferase ( ALT/SGPT) 60, Alkaline Phosphatase 68, Total Protein 6.1L, Albumin 2.6L, Globulin 3.5, Albumin/Globulin Ratio 0.7L, Hepatitis A IgM Antibody [Pending], Hepatitis B Surface Antigen [Pending], Hepatitis B Core IgM Antibody [Pending], Hepatitis C Antibody [Pending] Height (Feet): 5 Height (Inches): 2.00 Weight (Pounds): 120 Objective HEAD AND NECK: No JVP. No LAD. No thyromegaly. Extraocular movements intact. Pupils are reactive to light and accommodation. LUNGS: Has decreased breathing sounds on the both sides. CARDIAC: Regular rate and rhythm. S1 and S2. No murmur. No rub. ABDOMEN: Soft. PEG is in place. EXTREMITIES: No edema. No clubbing. No cyanosis. SIOBHAN TURPIN Aug 13, 2017 21:11
[2017-08-14 00:32] VITALS: BP 126/81
[2017-08-14] MEDS: Aztreonam Inj 1 GM in NS 55 ML IVPB SCH ×2 (03:54→12:39)
[2017-08-14 04:00] VITALS: BP 135/76
[2017-08-14] MEDS: traMADol 50mg tab GT PRN ×2 (04:17→14:46)
[2017-08-14] MEDS: ALPRAZolam 0.5mg tab GT PRN ×2 (04:17→14:46)
[2017-08-14] MEDS: metFORMIN 500mg tab ORAL SCH ×2 (06:24→16:18)
[2017-08-14] MEDS: D5 1/2NS 1,000 ML IV SCH ×2 (06:24→22:59)
[2017-08-14 07:51] VITALS: BP 170/90
[2017-08-14] MEDS: Vitamin D 400 INTLU TAB ORAL SCH (08:13)
[2017-08-14] MEDS: Cilostazol 100mg tab ORAL SCH (08:13)
[2017-08-14] MEDS: Heparin 5000 units/ml inj SUBQ SCH ×2 (08:16→20:45)
--- NOTE | 2017-08-14 09:02 | Nephrology Progress Note ---
Assessment/Plan Assessment 1,EULALIA most likely due to dehydration and prerenal azotemia. 2. Urinary tract infection. 3. History of Parkinson disease. 4. History of multiple stroke. 5. History of diabetes. 6. History of hypertension. 7. History of hypothyroidism. Plan Plan iv antibiotic continue ivf monitoring renal function avoid NSAID replace electrolyte as need it Subjective ROS Limited/Unobtainable: Yes Constitutional: Reports: no symptoms HEENT: Reports: no symptoms Genitourinary: Reports: no symptoms Neurologic/Psychiatric: Reports: no symptoms Subjective career orientation teacher in her bedside Objective Objective Last 24 Hour Vital Signs Date Time Temp Pulse Resp B/P (MAP) Pulse Ox O2 Delivery O2 Flow Rate FiO2 08/14/17 08:13 170/90 08/14/17 08:13 79 170/90 08/14/17 07:51 97.9 79 20 170/90 97 Room Air 97.9 08/14/17 04:00 97.7 75 20 135/76 97 Room Air 97.7 08/14/17 03:37 74 08/14/17 00:32 96.8 71 19 126/81 96 96.8 08/13/17 23:55 77 08/13/17 20:06 78 08/13/17 20:00 97.7 78 20 134/80 95 97.7 08/13/17 16:00 97.2 75 20 125/85 98 97.2 08/13/17 16:00 77 08/13/17 12:32 97.2 08/13/17 12:00 97.9 73 22 157/104 98 97.9 08/13/17 12:00 73 Intake and Output 08/13/17 08/14/17 19:00 07:00 Intake Total 483 ml 1146 ml Output Total 400 ml Balance 483 ml 746 ml IV Total 443 ml 916 ml Tube Feeding 40 ml 230 ml Output Urine Total 400 ml # Voids 2 Laboratory Tests 08/13/17 11:55: White Blood Count 7.6, Red Blood Count 4.28, Hemoglobin 13.4, Hematocrit 40.1, Mean Corpuscular Volume 94, Mean Corpuscular Hemoglobin 31.3H, Mean Corpuscular Hemoglobin Concent 33.5, Red Cell Distribution Width 11.7, Platelet Count 204, Mean Platelet Volume 8.7, Neutrophils (%) (Auto) 57.9, Lymphocytes (%) (Auto) 21.6, Monocytes (%) (Auto) 10.4H, Eosinophils (%) (Auto) 9.2H, Basophils (%) ( Auto) 0.9, Sodium Level 137, Potassium Level 4.6, Chloride Level 106, Carbon Dioxide Level 26, Anion Gap 5, Blood Urea Nitrogen 15, Creatinine 0.6, Estimat Glomerular Filtration Rate , Glucose Level 100, Calcium Level 8.9, Total Bilirubin 0.6, Aspartate Amino Transf (AST/SGOT) 50H, Alanine Aminotransferase ( ALT/SGPT) 60, Alkaline Phosphatase 68, Total Protein 6.1L, Albumin 2.6L, Globulin 3.5, Albumin/Globulin Ratio 0.7L, Hepatitis A IgM Antibody [Pending], Hepatitis B Surface Antigen [Pending], Hepatitis B Core IgM Antibody [Pending], Hepatitis C Antibody [Pending] Height (Feet): 5 Height (Inches): 2.00 Weight (Pounds): 120 Objective HEAD AND NECK: No JVP. No LAD. No thyromegaly. Extraocular movements intact. Pupils are reactive to light and accommodation. LUNGS: Has decreased breathing sounds on the both sides. CARDIAC: Regular rate and rhythm. S1 and S2. No murmur. No rub. ABDOMEN: Soft. PEG is in place. EXTREMITIES: No edema. No clubbing. No cyanosis. SIOBHAN TURPIN Aug 14, 2017 09:02
[2017-08-14 09:18] LABS: BASOPHILS % (AUTO) 0.9 % (0.0-2.0); EOSINOPHILS % (AUTO) 5.9 % (0.0-3.0); HEMATOCRIT 41.8 % (37.0-47.0); HEMOGLOBIN 14.3 G/DL (12.0-16.0); LYMPHOCYTES % (AUTO) 19.5 % (20.0-45.0); MEAN CORPUSCULAR VOLUME 93 FL (80-99); MONOCYTES % (AUTO) 10.7 % (1.0-10.0); NEUTROPHILS % (AUTO) 63.1 % (45.0-75.0); PLATELET COUNT 220 K/UL (150-450); RED BLOOD COUNT 4.48 M/UL (4.20-5.40); RED CELL DISTRIBUTION WIDTH 11.7 % (11.6-14.8); WHITE BLOOD COUNT 8.9 K/UL (4.8-10.8)
[2017-08-14 09:32] LABS: ANION GAP 8 mmol/L (5-15); BLOOD UREA NITROGEN 13 mg/dL (7-18); CARBON DIOXIDE 25 MMOL/L (21-32); CHLORIDE 102 MMOL/L (98-107); CREATININE 0.6 MG/DL (0.55-1.30); POTASSIUM 4.3 MMOL/L (3.5-5.1); SODIUM 135 MMOL/L (136-145)
--- NOTE | 2017-08-14 10:52 | Diagnostic Imaging Report ---
Indication: Abnormal liver function tests Technique: Armando-scale and duplex images of the upper abdomen were obtained Comparison: none Findings: Exam is somewhat limited; patient unable to assist with breathing and positioning Gallbladder could not be visualized. Note that recent abdominal radiograph demonstrates cholecystectomy clips. Common bile duct measures 6 mm in diameter. No intrahepatic biliary ductal dilatation. Liver demonstrates normal echogenicity, no focal abnormality. Portal vein and hepatic veins are patent. Pancreas is obscured by bowel gas. Spleen is unremarkable. Left kidney measures 10.2 cm in length. Right kidney measures 9.9 cm length. Both kidneys demonstrate normal echogenicity. There is no hydronephrosis. No focal abnormality . Abdominal aorta is partially obscured by bowel gas, visualized portions are non-aneurysmal . Impression: Limited exam, as described Nonvisualized gallbladder, apparently surgically absent Negative for dilated ducts No other significant abnormality Note inability to visualize the pancreas and portions of the abdominal aorta
--- NOTE | 2017-08-14 10:58 | GI Progress Note ---
Assessment/Plan Problems: (1) Dehydration ICD Codes: E86.0 - Dehydration SNOMED: 12137899 (2) Anemia ICD Codes: D64.9 - Anemia, unspecified SNOMED: 815089654 (3) Hypoalbuminemia ICD Codes: E88.09 - Other disorders of plasma-protein metabolism, not elsewhere classified SNOMED: 670564722 (4) Feeding by G-tube ICD Codes: Z93.1 - Gastrostomy status SNOMED: 835695804, 218400325 (5) DM (6) Gastroparesis ICD Codes: K31.84 - Gastroparesis SNOMED: 463691999 Status: unchanged Status Narrative Discussed with Dr. Pedraza. Assessment/Plan KUB negative hep panel pending tolerating GTF will increase rate to 55 DM management, consider low dose erythromycin 50mg GT for GI motility if patient does not have history of arrhythmias. fu labs fu RD recs dvt prophylaxis d/w POC with caregiver at bedside. The patient was seen and examined at bedside and all new and available data was reviewed in the patients chart. I agree with the above findings, impression and plan. (Patient seen earlier today. Signature stamp does not reflect patient encounter time.). - Lisa Pedraza MD Subjective Subjective limited Objective Last 24 Hour Vital Signs Date Time Temp Pulse Resp B/P (MAP) Pulse Ox O2 Delivery O2 Flow Rate FiO2 08/14/17 08:13 170/90 08/14/17 08:13 79 170/90 08/14/17 07:51 97.9 79 20 170/90 97 Room Air 97.9 08/14/17 04:00 97.7 75 20 135/76 97 Room Air 97.7 08/14/17 03:37 74 08/14/17 00:32 96.8 71 19 126/81 96 96.8 08/13/17 23:55 77 08/13/17 20:06 78 08/13/17 20:00 97.7 78 20 134/80 95 97.7 08/13/17 16:00 97.2 75 20 125/85 98 97.2 08/13/17 16:00 77 08/13/17 12:32 97.2 08/13/17 12:00 97.9 73 22 157/104 98 97.9 08/13/17 12:00 73 Intake and Output 08/13/17 08/14/17 19:00 07:00 Intake Total 483 ml 1146 ml Output Total 400 ml Balance 483 ml 746 ml IV Total 443 ml 916 ml Tube Feeding 40 ml 230 ml Output Urine Total 400 ml # Voids 2 Laboratory Tests Test 08/13/17 11:55 08/14/17 07:50 White Blood Count 7.6 K/UL (4.8-10.8) 8.9 K/UL (4.8-10.8) Red Blood Count 4.28 M/UL (4.20-5.40) 4.48 M/UL (4.20-5.40) Hemoglobin 13.4 G/DL (12.0-16.0) 14.3 G/DL (12.0-16.0) Hematocrit 40.1 % (37.0-47.0) 41.8 % (37.0-47.0) Mean Corpuscular Volume 94 FL (80-99) 93 FL (80-99) Mean Corpuscular Hemoglobin 31.3 PG (27.0-31.0) H 32.0 PG (27.0-31.0) H Mean Corpuscular Hemoglobin Concent 33.5 G/DL (32.0-36.0) 34.3 G/DL (32.0-36.0) Red Cell Distribution Width 11.7 % (11.6-14.8) 11.7 % (11.6-14.8) Platelet Count 204 K/UL (150-450) 220 K/UL (150-450) Mean Platelet Volume 8.7 FL (6.5-10.1) 8.2 FL (6.5-10.1) Neutrophils (%) (Auto) 57.9 % (45.0-75.0) 63.1 % (45.0-75.0) Lymphocytes (%) (Auto) 21.6 % (20.0-45.0) 19.5 % (20.0-45.0) L Monocytes (%) (Auto) 10.4 % (1.0-10.0) H 10.7 % (1.0-10.0) H Eosinophils (%) (Auto) 9.2 % (0.0-3.0) H 5.9 % (0.0-3.0) H Basophils (%) (Auto) 0.9 % (0.0-2.0) 0.9 % (0.0-2.0) Sodium Level 137 MMOL/L (136-145) 135 MMOL/L (136-145) L Potassium Level 4.6 MMOL/L (3.5-5.1) 4.3 MMOL/L (3.5-5.1) Chloride Level 106 MMOL/L (98-107) 102 MMOL/L (98-107) Carbon Dioxide Level 26 MMOL/L (21-32) 25 MMOL/L (21-32) Anion Gap 5 mmol/L (5-15) 8 mmol/L (5-15) Blood Urea Nitrogen 15 mg/dL (7-18) 13 mg/dL (7-18) Creatinine 0.6 MG/DL (0.55-1.30) 0.6 MG/DL (0.55-1.30) Estimat Glomerular Filtration Rate mL/min (>60) mL/min (>60) Glucose Level 100 MG/DL (74-106) 128 MG/DL (74-106) H Calcium Level 8.9 MG/DL (8.5-10.1) 9.0 MG/DL (8.5-10.1) Total Bilirubin 0.6 MG/DL (0.2-1.0) Aspartate Amino Transf (AST/SGOT) 50 U/L (15-37) H Alanine Aminotransferase (ALT/SGPT) 60 U/L (12-78) Alkaline Phosphatase 68 U/L (46-116) Total Protein 6.1 G/DL (6.4-8.2) L Albumin 2.6 G/DL (3.4-5.0) L Globulin 3.5 g/dL Albumin/Globulin Ratio 0.7 (1.0-2.7) L Hepatitis A IgM Antibody Pending Hepatitis B Surface Antigen Pending Hepatitis B Core IgM Antibody Pending Hepatitis C Antibody Pending Microbiology Date/Time Source Procedure Growth Status 08/13/17 19:30 Straight Cath Urine Culture - Preliminary Resulted Height (Feet): 5 Height (Inches): 2.00 Weight (Pounds): 120 General Appearance: alert, thin Cardiovascular: normal rate Respiratory/Chest: normal breath sounds, no respiratory distress Abdominal Exam: soft, GT site - c/d/i Munoz,Tamiko Jonas N.P. Aug 14, 2017 10:58 STEPHANIE PEDRAZA Aug 21, 2017 12:36
[2017-08-14 13:02] VITALS: BP 158/72
--- NOTE | 2017-08-14 14:05 | General Progress Note ---
Assessment/Plan Problem List: (1) Hypoalbuminemia ICD Codes: E88.09 - Other disorders of plasma-protein metabolism, not elsewhere classified SNOMED: 198583030 (2) Parkinson disease ICD Codes: G20 - Parkinson's disease SNOMED: 27753440 (3) CVA (cerebral vascular accident) ICD Codes: I63.9 - Cerebral infarction, unspecified SNOMED: 388519443 (4) Syncopal episodes ICD Codes: R55 - Syncope and collapse SNOMED: 817964984 (5) Anemia ICD Codes: D64.9 - Anemia, unspecified SNOMED: 041034683 (6) Dehydration ICD Codes: E86.0 - Dehydration SNOMED: 91050957 (7) Hypotension ICD Codes: I95.9 - Hypotension, unspecified SNOMED: 74025232 (8) UTI (urinary tract infection) ICD Codes: N39.0 - Urinary tract infection, site not specified SNOMED: 65180089 Status: unchanged Assessment/Plan ot pt diet abx cbc bmp am dc plan w hh if clear Subjective Constitutional: Reports: weakness Allergies: Coded Allergies: CLINDAMYCIN (Verified Allergy, Unknown, 08/11/17) IODINE (Verified Allergy, Unknown, 08/11/17) LATEX (Verified Allergy, Unknown, 08/11/17) LEVOFLOXACIN (Verified Allergy, Unknown, rash, 08/11/17) PENICILLINS (Verified Allergy, Unknown, 08/11/17) QUETIAPINE (Verified Allergy, Unknown, 08/11/17) SULFA (SULFONAMIDE ANTIBIOTICS) (Unverified Allergy, Unknown, 08/11/17) TETANUS VACCINES AND TOXOID (Unverified Allergy, Unknown, 08/11/17) Uncoded Allergies: FISH (Allergy, Unknown, 08/11/17) TAPE ADHERENT (Allergy, Unknown, 08/11/17) All Systems: reviewed and negative except above Subjective calm in bed confused Objective Last 24 Hour Vital Signs Date Time Temp Pulse Resp B/P (MAP) Pulse Ox O2 Delivery O2 Flow Rate FiO2 08/14/17 13:02 98.1 78 18 158/72 97 Room Air 98.1 08/14/17 08:13 170/90 08/14/17 08:13 79 170/90 08/14/17 07:56 79 08/14/17 07:51 97.9 79 20 170/90 97 Room Air 97.9 08/14/17 04:00 97.7 75 20 135/76 97 Room Air 97.7 08/14/17 03:37 74 08/14/17 00:32 96.8 71 19 126/81 96 96.8 08/13/17 23:55 77 08/13/17 20:06 78 08/13/17 20:00 97.7 78 20 134/80 95 97.7 08/13/17 16:00 97.2 75 20 125/85 98 97.2 08/13/17 16:00 77 Intake and Output 08/13/17 08/14/17 19:00 07:00 Intake Total 483 ml 1146 ml Output Total 400 ml Balance 483 ml 746 ml IV Total 443 ml 916 ml Tube Feeding 40 ml 230 ml Output Urine Total 400 ml # Voids 2 Laboratory Tests 08/14/17 07:50: White Blood Count 8.9, Red Blood Count 4.48, Hemoglobin 14.3, Hematocrit 41.8, Mean Corpuscular Volume 93, Mean Corpuscular Hemoglobin 32.0H, Mean Corpuscular Hemoglobin Concent 34.3, Red Cell Distribution Width 11.7, Platelet Count 220, Mean Platelet Volume 8.2, Neutrophils (%) (Auto) 63.1, Lymphocytes (%) (Auto) 19.5L, Monocytes (%) (Auto) 10.7H, Eosinophils (%) (Auto) 5.9H, Basophils (%) ( Auto) 0.9, Sodium Level 135L, Potassium Level 4.3, Chloride Level 102, Carbon Dioxide Level 25, Anion Gap 8, Blood Urea Nitrogen 13, Creatinine 0.6, Estimat Glomerular Filtration Rate , Glucose Level 128H, Calcium Level 9.0 Height (Feet): 5 Height (Inches): 2.00 Weight (Pounds): 120 General Appearance: lethargic, confused EENT: normal ENT inspection Neck: normal alignment Cardiovascular: normal peripheral pulses, normal rate, regular rhythm Respiratory/Chest: chest wall non-tender, lungs clear, normal breath sounds Abdomen: normal bowel sounds, non tender, soft Extremities: normal inspection Edema: no edema noted Arm (L), no edema noted Arm (R), no edema noted Leg (L), no edema noted Leg (R), no edema noted Pedal (L), no edema noted Pedal (R), no edema noted Generalized Neurologic: motor weakness Skin: normal pigmentation, warm/dry BREN FLOWERS Aug 14, 2017 14:05
[2017-08-14 16:14] VITALS: BP 139/99
[2017-08-14] MEDS ORDERED: Amikacin Rx to dose MISC PRN (17:00)
[2017-08-14] MEDS ORDERED: NEUPRO 2 MG/24 HR TOPIC SCH (17:00)
[2017-08-14] MEDS ORDERED: NEUPRO TOPIC SCH (17:00)
--- NOTE | 2017-08-14 17:42 | Neurology Progress Note ---
Interim History Interim History ROS Limited/Unobtainable: Yes Objective Physical Exam Last Vital Signs Date Time Temp Pulse Resp B/P (MAP) Pulse Ox O2 Delivery O2 Flow Rate FiO2 08/14/17 16:14 97.7 77 18 139/99 97 Room Air 97.7 Laboratory Tests Test 08/14/17 07:50 White Blood Count 8.9 K/UL (4.8-10.8) Red Blood Count 4.48 M/UL (4.20-5.40) Hemoglobin 14.3 G/DL (12.0-16.0) Hematocrit 41.8 % (37.0-47.0) Mean Corpuscular Volume 93 FL (80-99) Mean Corpuscular Hemoglobin 32.0 PG (27.0-31.0) H Mean Corpuscular Hemoglobin Concent 34.3 G/DL (32.0-36.0) Red Cell Distribution Width 11.7 % (11.6-14.8) Platelet Count 220 K/UL (150-450) Mean Platelet Volume 8.2 FL (6.5-10.1) Neutrophils (%) (Auto) 63.1 % (45.0-75.0) Lymphocytes (%) (Auto) 19.5 % (20.0-45.0) L Monocytes (%) (Auto) 10.7 % (1.0-10.0) H Eosinophils (%) (Auto) 5.9 % (0.0-3.0) H Basophils (%) (Auto) 0.9 % (0.0-2.0) Sodium Level 135 MMOL/L (136-145) L Potassium Level 4.3 MMOL/L (3.5-5.1) Chloride Level 102 MMOL/L (98-107) Carbon Dioxide Level 25 MMOL/L (21-32) Anion Gap 8 mmol/L (5-15) Blood Urea Nitrogen 13 mg/dL (7-18) Creatinine 0.6 MG/DL (0.55-1.30) Estimat Glomerular Filtration Rate mL/min (>60) Glucose Level 128 MG/DL (74-106) H Calcium Level 9.0 MG/DL (8.5-10.1) Impression/Recommendations Status: unchanged Recommendations #[id number] RENATA HOFFMAN Aug 14, 2017 17:42
[2017-08-14] MEDS ORDERED: Amikacin 750 MG in NS 110 ML IV SCH (18:00)
[2017-08-14 20:00] VITALS: BP 150/78
[2017-08-14] MEDS: Atorvastatin 20mg tab ORAL SCH (20:45)
--- NOTE | 2017-08-14 21:31 | Infectious Diseases Prog Note ---
Assessment/Plan Assessment/Plan ASSESSMENT: The patient is a 76-year-old female with: Probable sepsis Probable urinary tract infection. ESBL EColi Weakness 2/2 to above Transaminitis, Ultrasound of the liver : Nonvisualized gallbladder, apparently surgically absent Chest x-ray, NAPD Diabetes. History of recurrent UTI. , UCx : 100K history of CVA. History of contractions. Parkinson disease. History of G-tube placement and gastric bypass in the past. ALLERGIES: Multiple including clindamycin, iodine level, levofloxacin, penicillin, and sulfa. PLAN: continue the patient on IV amikacin d# 1 / 3 ok to DC w cont of Ab Rx DC aztreonam day # 3/ Monitor CBC Monitor BMP. Monitor cultures ( blood ) Hepatitis panel. Subjective Allergies: Coded Allergies: CLINDAMYCIN (Verified Allergy, Unknown, 08/11/17) IODINE (Verified Allergy, Unknown, 08/11/17) LATEX (Verified Allergy, Unknown, 08/11/17) LEVOFLOXACIN (Verified Allergy, Unknown, rash, 08/11/17) PENICILLINS (Verified Allergy, Unknown, 08/11/17) QUETIAPINE (Verified Allergy, Unknown, 08/11/17) SULFA (SULFONAMIDE ANTIBIOTICS) (Unverified Allergy, Unknown, 08/11/17) TETANUS VACCINES AND TOXOID (Unverified Allergy, Unknown, 08/11/17) Uncoded Allergies: FISH (Allergy, Unknown, 08/11/17) TAPE ADHERENT (Allergy, Unknown, 08/11/17) Objective Vital Signs Last 24 Hour Vital Signs Date Time Temp Pulse Resp B/P (MAP) Pulse Ox O2 Delivery O2 Flow Rate FiO2 08/14/17 16:14 97.7 77 18 139/99 97 Room Air 97.7 08/14/17 15:45 98.1 08/14/17 15:09 81 08/14/17 14:46 98.1 08/14/17 13:02 98.1 78 18 158/72 97 Room Air 98.1 08/14/17 12:03 75 08/14/17 08:13 170/90 08/14/17 08:13 79 170/90 08/14/17 07:56 79 08/14/17 07:51 97.9 79 20 170/90 97 Room Air 97.9 08/14/17 04:00 97.7 75 20 135/76 97 Room Air 97.7 08/14/17 03:37 74 08/14/17 00:32 96.8 71 19 126/81 96 96.8 08/13/17 23:55 77 Height (Feet): 5 Height (Inches): 2.00 Weight (Pounds): 120 HEENT: anicteric Respiratory/Chest: respiratory distress Cardiovascular: normal rate Abdomen: no organomegaly Microbiology Date/Time Source Procedure Growth Status 08/13/17 19:30 Straight Cath Urine Culture - Preliminary Resulted Laboratory Tests Test 08/14/17 07:50 White Blood Count 8.9 K/UL (4.8-10.8) Red Blood Count 4.48 M/UL (4.20-5.40) Hemoglobin 14.3 G/DL (12.0-16.0) Hematocrit 41.8 % (37.0-47.0) Mean Corpuscular Volume 93 FL (80-99) Mean Corpuscular Hemoglobin 32.0 PG (27.0-31.0) H Mean Corpuscular Hemoglobin Concent 34.3 G/DL (32.0-36.0) Red Cell Distribution Width 11.7 % (11.6-14.8) Platelet Count 220 K/UL (150-450) Mean Platelet Volume 8.2 FL (6.5-10.1) Neutrophils (%) (Auto) 63.1 % (45.0-75.0) Lymphocytes (%) (Auto) 19.5 % (20.0-45.0) L Monocytes (%) (Auto) 10.7 % (1.0-10.0) H Eosinophils (%) (Auto) 5.9 % (0.0-3.0) H Basophils (%) (Auto) 0.9 % (0.0-2.0) Sodium Level 135 MMOL/L (136-145) L Potassium Level 4.3 MMOL/L (3.5-5.1) Chloride Level 102 MMOL/L (98-107) Carbon Dioxide Level 25 MMOL/L (21-32) Anion Gap 8 mmol/L (5-15) Blood Urea Nitrogen 13 mg/dL (7-18) Creatinine 0.6 MG/DL (0.55-1.30) Estimat Glomerular Filtration Rate mL/min (>60) Glucose Level 128 MG/DL (74-106) H Calcium Level 9.0 MG/DL (8.5-10.1) Current Medications Medications (Trade) Dose Ordered Sig/Alice Route PRN Reason Start Time Stop Time Status Last Admin Dose Admin Alprazolam (Xanax) 0.5 mg EVERY 8 HOURS PRN GT For Anxiety 08/12/17 13:45 08/19/17 08:59 08/14/17 14:46 Amikacin Protocol (Amikacin pharmacy to dose) 1 ea DAILY PRN MISC . 08/14/17 17:00 09/13/17 16:59 Amikacin Sulfate 750 mg/Sodium Chloride 113 ml @ 113 mls/hr Q36H IV 08/14/17 18:00 08/21/17 17:59 08/14/17 17:55 Atenolol (Tenormin) 50 mg DAILY ORAL 08/12/17 09:00 09/11/17 08:59 08/14/17 08:13 Atorvastatin Calcium (Lipitor) 40 mg BEDTIME ORAL 08/12/17 21:00 09/11/17 20:59 08/14/17 20:45 Cilostazol (Pletal) 100 mg DAILY ORAL 08/12/17 09:00 09/11/17 08:59 08/14/17 08:13 Clonidine HCl (Catapres Tab) 0.1 mg Q8H PRN ORAL sbp>160 08/12/17 17:15 09/11/17 17:14 08/14/17 08:13 Dextrose/Sodium Chloride 1,000 ml @ 60 mls/hr [id number] IV 08/12/17 04:30 09/11/17 04:29 08/14/17 06:24 Escitalopram Oxalate (Lexapro) 20 mg DAILY ORAL 08/12/17 09:00 09/11/17 08:59 08/14/17 08:13 Heparin Sodium (Porcine) (Heparin 5000 units/ml) 5,000 units EVERY 12 HOURS SUBQ 08/12/17 21:00 09/11/17 20:59 08/14/17 20:45 Levothyroxine Sodium (Synthroid) 50 mcg DAILY@0630 ORAL 08/12/17 06:30 09/11/17 06:29 08/14/17 06:24 Lorazepam (Ativan 2mg/ml 1ml) 1 mg Q4H PRN IV For Anxiety 08/12/17 03:00 08/19/17 02:59 Metformin HCl (Glucophage) 500 mg BIAC ORAL 08/12/17 06:30 09/11/17 06:29 08/14/17 16:18 Morphine Sulfate (Morphine Sulfate) 2 mg Q4H PRN IM MOD-SEVERE PAIN 4-10 08/12/17 08:00 08/19/17 02:59 Patient Own Medication (Patient's Own Med) 1 ea DAILY@1700 TOPIC 08/14/17 17:00 09/13/17 16:59 08/14/17 16:18 Patient Own Medication (Patient's Own Med) 1 ea DAILY@1700 TOPIC 08/14/17 17:00 09/13/17 16:59 08/14/17 16:19 Tramadol HCl (Ultram) 50 mg EVERY 8 HOURS PRN GT pain 08/12/17 13:45 08/19/17 02:59 08/14/17 14:46 Vitamin D (Vitamin D) 400 intlu DAILY ORAL 08/12/17 09:00 09/11/17 08:59 08/14/17 08:13 ANDERSON NEFF M.D. Aug 14, 2017 21:31
--- NOTE | 2017-08-14 22:45 | Consultation ---
DATE OF CONSULTATION: 08/14/2017 NEUROLOGICAL CONSULTATION CONSULTING PHYSICIAN: Rolf Muñoz M.D. REQUESTING PHYSICIAN: Thang Tom D.O. HISTORY OF PRESENT ILLNESS: The patient is a 76-year-old female, chronically ill, multiple strokes in the past, now seen in neurological consultation to evaluate the transient loss of consciousness and evaluate the management of underlying neurological issues such as Parkinson disease and multiple strokes. The patient who is bedridden, in a wheelchair, was found by caregiver being unconscious. Her blood pressure they found it very low. Paramedics were called to the scene. She was brought to emergency room. Family described she was watching TV and she became unresponsive. Her vital signs on admission included blood pressure 110/75, respiratory rate 18, heart rate 71. The patient was given IV fluids. Imaging studies included chest x-ray revealed no acute disease. There was dislocation of the right shoulder noted. Her abdominal x-ray, no acute findings. Lab work with anemia, hemoglobin 9.1 and hematocrit 28.1. Coagulopathy with INR 1.7 and PTT of 17.4. Urinalysis with 5 to 10 WBCs, 2+ leukocyte esterase, 1+ ketones, and 1+ protein. Chemistry panel included total protein 5.6, albumin 2.4, elevated liver function with AST 79, ALT 83, and BUN of 23. Following admission till present, the patient continued on IV fluids and antibiotics. Her vital signs stabilized. No fevers noted. PAST MEDICAL HISTORY: The patient known to have multiple stroke risk factors such as diabetes, hypertension, hyperlipidemia, reportedly had a major left hemispheric stroke 12 years ago. Since then, she had recurrent several strokes, developed quadriparesis with only left arm moving spontaneously. She developed verbal unresponsiveness, reportedly able to pronounce few words only, was able to follow very simple commands, remained bedbound to wheelchair, with 24-hour caregivers at her home. The patient was diagnosed with Parkinson disease. She also has hypothyroidism, urine incontinence, and G-tube feeding. MEDICATIONS: Treatment prior to admission included Lexapro, levothyroxine, metformin, Crestor, tramadol, atenolol, Xanax as needed, Neupro one patch, cilostazol, and vitamin D supplements. ALLERGIES: Clindamycin, fish, iodine, Latex, levofloxacin, penicillin, quetiapine, sulfa drugs, tape toxoid. SOCIAL HISTORY: Lives at home, has 24-hour caregiver. FAMILY HISTORY: Unavailable. REVIEW OF SYMPTOMS: Unable to obtain due to the patient's status, but according her two caregivers who were present during this examination, she appears to be in baseline. One of the caregivers, who knows her for the last three years indicated that there were no much changes in her condition in the last three years. PHYSICAL EXAMINATION: GENERAL: A well-developed, ill-appearing, cachectic female sitting in a wheelchair. VITAL SIGNS: Her current vital signs are stable, blood pressure 129/99, temperature 97.7. HEENT: Head, normocephalic. There is no evidence of trauma. Eyes, ears, and throat are clear. NECK: Very rigid in all directions. MUSCULOSKELETAL: Remarkable for severe right arm flexor contracture, dislocated right shoulder, extended both lower extremities. No deformities. Peripheral pulses 1+ symmetric. SKIN: Unremarkable. No rash. Peripheral pulses 1+ symmetric. MENTAL STATUS: The patient is alert. She has a good eye contact. She is nonverbal and does not follow any commands. CRANIAL NERVE II: Pupils are 3 mm, both responding to light and accommodation. Extraocular movements full range. Fundi poorly visualized. Noncompliant. CRANIAL NERVE V: Normal corneal responses. CRANIAL NERVE VII: No gross asymmetry. CRANIAL NERVE VIII: Probably decreased hearing. CRANIAL NERVES IX THROUGH XII: Tongue is in midline. Reduced gag response. MOTOR EXAMINATION: Spasticity with flexor contracture of right upper extremity, spastic extended both lower extremities, slightly more on the right, extended both feet, able to move spontaneously left arm, some movement in both lower extremities. Deep tendon reflexes 4+ bilaterally. Positive Babinski bilaterally. SENSORY EXAM: Withdrawing to pin stimulation both arms and legs. IMPRESSION: 1. Status post multiple strokes with spastic quadriparesis, right more than left, partial global aphasia and vascular dementia. 2. Vascular parkinsonism. 3. urinary tract infection. 4. Hypertension. 5. Diabetes type 2. 6. Hypothyroidism. 7. Hyperlipidemia. DISCUSSION: The patient has extensive neurological abnormalities resulting from multiple strokes accompanied by parkinsonian features and quadriparesis, cognitive loss and marked speech abnormalities. At this time, the patient is being well treated with IV fluids and antibiotics. She appears to be at her baseline. From neurological perspective, no additional treatment will be necessary. The patient to continue with supportive symptomatic care. I discussed the patient's status with the caregivers and medical staff. Thank you for allowing me to see this interesting patient in neurological consultation. Rolf Muñoz M.D. DR: SUMMER JOB#: [id number] CC:
--- NOTE | 2017-08-14 23:19 | Cardiology Progress Note ---
Assessment/Plan Assessment/Plan 1. Syncope likely due to hypovolemia, Carotid US, ECHO and orthostatic vitals. 2. DM 3. HTN 4. Hx of CVA Subjective Subjective Sinus rhythm at 73. Objective Last 24 Hour Vital Signs Date Time Temp Pulse Resp B/P (MAP) Pulse Ox O2 Delivery O2 Flow Rate FiO2 08/14/17 16:14 97.7 77 18 139/99 97 Room Air 97.7 08/14/17 15:45 98.1 08/14/17 15:09 81 08/14/17 14:46 98.1 08/14/17 13:02 98.1 78 18 158/72 97 Room Air 98.1 08/14/17 12:03 75 08/14/17 08:13 170/90 08/14/17 08:13 79 170/90 08/14/17 07:56 79 08/14/17 07:51 97.9 79 20 170/90 97 Room Air 97.9 08/14/17 04:00 97.7 75 20 135/76 97 Room Air 97.7 08/14/17 03:37 74 08/14/17 00:32 96.8 71 19 126/81 96 96.8 08/13/17 23:55 77 Intake and Output 08/13/17 08/14/17 19:00 07:00 Intake Total 483 ml 1146 ml Output Total 400 ml Balance 483 ml 746 ml IV Total 443 ml 916 ml Tube Feeding 40 ml 230 ml Output Urine Total 400 ml # Voids 2 2D Echo: LVEF 65%, Mild LVH, RVSP ~25 mmHg, grade 1 LVDD Laboratory Tests Test 08/14/17 07:50 White Blood Count 8.9 K/UL (4.8-10.8) Red Blood Count 4.48 M/UL (4.20-5.40) Hemoglobin 14.3 G/DL (12.0-16.0) Hematocrit 41.8 % (37.0-47.0) Mean Corpuscular Volume 93 FL (80-99) Mean Corpuscular Hemoglobin 32.0 PG (27.0-31.0) H Mean Corpuscular Hemoglobin Concent 34.3 G/DL (32.0-36.0) Red Cell Distribution Width 11.7 % (11.6-14.8) Platelet Count 220 K/UL (150-450) Mean Platelet Volume 8.2 FL (6.5-10.1) Neutrophils (%) (Auto) 63.1 % (45.0-75.0) Lymphocytes (%) (Auto) 19.5 % (20.0-45.0) L Monocytes (%) (Auto) 10.7 % (1.0-10.0) H Eosinophils (%) (Auto) 5.9 % (0.0-3.0) H Basophils (%) (Auto) 0.9 % (0.0-2.0) Sodium Level 135 MMOL/L (136-145) L Potassium Level 4.3 MMOL/L (3.5-5.1) Chloride Level 102 MMOL/L (98-107) Carbon Dioxide Level 25 MMOL/L (21-32) Anion Gap 8 mmol/L (5-15) Blood Urea Nitrogen 13 mg/dL (7-18) Creatinine 0.6 MG/DL (0.55-1.30) Estimat Glomerular Filtration Rate mL/min (>60) Glucose Level 128 MG/DL (74-106) H Calcium Level 9.0 MG/DL (8.5-10.1) Microbiology Date/Time Source Procedure Growth Status 08/13/17 19:30 Straight Cath Urine Culture - Preliminary Resulted Objective HEAD AND NECK: No JVP. No LAD. No thyromegaly. Extraocular movements intact. Pupils are reactive to light and accommodation. LUNGS: Has decreased breathing sounds on the both sides. CARDIAC: Regular rate and rhythm. S1 and S2. No murmur. No rub. ABDOMEN: Soft. PEG is in place. EXTREMITIES: No edema. No clubbing. No cyanosis. JANELLE SOUZA Aug 14, 2017 23:19
[2017-08-15] VITALS: BP 129/63
--- NOTE | 2017-08-15 01:30 | Consultation ---
DATE OF CONSULTATION: 08/15/2017 ADDENDUM CARDIOLOGY CONSULTATION CONSULTING PHYSICIAN: Milan Alvarado M.D. REFERRING PHYSICIAN: Thang Tom D.O. REASON FOR CONSULTATION: Management of syncope. IMAGING STUDY: Chest x-ray showed no acute cardiopulmonary disease, dislocation of right shoulder. ASSESSMENT AND PLAN: The patient is a very unfortunate lady, who is seen in Cardiology consultation at the request of Dr. Tom. 1. Most likely syncopal event preceded by presyncope. There was some element of presyncope such as intravascular volume depletion on the chemistry. to review 2D echocardiography, which was done on 08/12/2017. 2. History of hypertension. 3. History of diabetes mellitus. 4. History of Parkinson disease. 5. Multiple stroke. 6. Hypothyroidism. 7. Dyslipidemia. I would like to thank, Dr. Tom, for allowing me to participate in the care of this patient. Milan Alvarado M.D. DR: FOREST JOB#: [id number] CC:
[2017-08-15] MEDS: ALPRAZolam 0.5mg tab GT PRN (01:48)
[2017-08-15] MEDS: traMADol 50mg tab GT PRN (01:49)
[2017-08-15 04:00] VITALS: BP 134/65
--- NOTE | 2017-08-15 05:15 | Consultation ---
DATE OF CONSULTATION: 08/11/2017 NOTE: "INCOMPLETE DICTATION" CARDIOLOGY CONSULTATION CONSULTING PHYSICIAN: Milan Alvarado M.D. REFERRING PHYSICIAN: Thang Tom D.O. REASON FOR CONSULTATION: Management of syncope. HISTORY OF PRESENT ILLNESS: The patient is a very unfortunate 76-year-old female who presents to the hospital with dizziness, weakness, and a possible syncopal event. According to the records, the patient was watching TV and then she became unresponsive. Her blood pressure was checked and was found to be hypotensive. On arrival of paramedics, IV fluids was given and the patient was transferred to this hospital for further evaluation and management. Unfortunately, the patient is nonverbal and is not capable of providing any history. Cardiology consultation was made at the request of Dr. Tom for management and assessment of syncope. Review of the records shows no prior history of coronary artery disease, congestive heart failure, or cardiac arrhythmia. metformin 500 mg p.o. twice daily, Crestor 10 mg p.o. daily, daily, and Ultram q.8 hours p.r.n. pain. PHYSICAL EXAMINATION: VITAL SIGNS: Blood pressure is 110/75, respirations 18, pulse is 71, temperature 97.8 degrees Fahrenheit, and O2 saturation 97%. LABORATORY FINDINGS: WBC 7.6, hemoglobin 9.1, hematocrit of 28.1, and platelet count is 152. Milan Alvarado M.D. DR: WILMA JOB#: [id number] CC:
[2017-08-15] MEDS: metFORMIN 500mg tab ORAL SCH (06:16)
[2017-08-15 06:51] LABS: ALANINE AMINOTRANSFERASE 43 U/L (12-78); ALBUMIN 2.5 G/DL (3.4-5.0); ALBUMIN/GLOBULIN RATIO 0.8 (1.0-2.7); ALKALINE PHOSPHATASE 67 U/L (46-116); ANION GAP 7 mmol/L (5-15); ASPARTATE AMINO TRANSFERASE 34 U/L (15-37); BILIRUBIN,TOTAL 0.6 MG/DL (0.2-1.0); BLOOD UREA NITROGEN 13 mg/dL (7-18); CALCIUM 8.7 MG/DL (8.5-10.1); CARBON DIOXIDE 26 MMOL/L (21-32); CHLORIDE 102 MMOL/L (98-107); CREATININE 0.6 MG/DL (0.55-1.30); PHOSPHORUS 2.4 MG/DL (2.5-4.9); POTASSIUM 4.1 MMOL/L (3.5-5.1); SODIUM 135 MMOL/L (136-145)
[2017-08-15 08:00] VITALS: BP 134/64
[2017-08-15] MEDS: Vitamin D 400 INTLU TAB ORAL SCH (08:20)
[2017-08-15] MEDS: Cilostazol 100mg tab ORAL SCH (08:20)
[2017-08-15 08:21] VITALS: BP 134/64
[2017-08-15] MEDS: Heparin 5000 units/ml inj SUBQ SCH (08:23)
--- NOTE | 2017-08-15 09:13 | Infectious Diseases Prog Note ---
Assessment/Plan Assessment/Plan ASSESSMENT: The patient is a 76-year-old female with: Probable sepsis, SP Probable urinary tract infection. ESBL EColi Weakness 2/2 to above an dALOC improved Transaminitis, Hepatitis panel Neg Ultrasound of the liver : Nonvisualized gallbladder, apparently surgically absent Chest x-ray, NAPD Diabetes. History of recurrent UTI. , UCx : 100K history of CVA. History of contractions. Parkinson disease. History of G-tube placement and gastric bypass in the past. ALLERGIES: Multiple including clindamycin, iodine level, levofloxacin, penicillin, and sulfa. PLAN: continue the patient on IV amikacin d# 2 / 3 ok to DC w cont of Ab Rx DC aztreonam day # 3/ Monitor CBC Monitor BMP. Monitor cultures ( blood ) Subjective Allergies: Coded Allergies: CLINDAMYCIN (Verified Allergy, Unknown, 08/11/17) IODINE (Verified Allergy, Unknown, 08/11/17) LATEX (Verified Allergy, Unknown, 08/11/17) LEVOFLOXACIN (Verified Allergy, Unknown, rash, 08/11/17) PENICILLINS (Verified Allergy, Unknown, 08/11/17) QUETIAPINE (Verified Allergy, Unknown, 08/11/17) SULFA (SULFONAMIDE ANTIBIOTICS) (Unverified Allergy, Unknown, 08/11/17) TETANUS VACCINES AND TOXOID (Unverified Allergy, Unknown, 08/11/17) Uncoded Allergies: FISH (Allergy, Unknown, 08/11/17) TAPE ADHERENT (Allergy, Unknown, 08/11/17) Subjective comfortable Objective Vital Signs Last 24 Hour Vital Signs Date Time Temp Pulse Resp B/P (MAP) Pulse Ox O2 Delivery O2 Flow Rate FiO2 08/15/17 08:21 84 134/64 08/15/17 08:00 98.1 84 20 134/64 97 Room Air 98.1 08/15/17 04:00 69 08/15/17 04:00 96.1 80 20 134/65 97 Room Air 96.1 08/15/17 00:00 97.5 77 20 129/63 95 Room Air 97.5 08/15/17 00:00 73 08/14/17 20:00 79 08/14/17 20:00 97.7 78 20 150/78 96 Room Air 97.7 08/14/17 16:14 97.7 77 18 139/99 97 Room Air 97.7 08/14/17 15:45 98.1 08/14/17 15:09 81 08/14/17 14:46 98.1 08/14/17 13:02 98.1 78 18 158/72 97 Room Air 98.1 08/14/17 12:03 75 Height (Feet): 5 Height (Inches): 2.00 Weight (Pounds): 120 HEENT: atraumatic Respiratory/Chest: no respiratory distress Cardiovascular: regular rhythm Abdomen: no organomegaly Microbiology Date/Time Source Procedure Growth Status 08/13/17 19:30 Straight Cath Urine Culture - Preliminary Gram Negative Bacillus 1 Resulted Laboratory Tests Test 08/15/17 05:45 Sodium Level 135 MMOL/L (136-145) L Potassium Level 4.1 MMOL/L (3.5-5.1) Chloride Level 102 MMOL/L (98-107) Carbon Dioxide Level 26 MMOL/L (21-32) Anion Gap 7 mmol/L (5-15) Blood Urea Nitrogen 13 mg/dL (7-18) Creatinine 0.6 MG/DL (0.55-1.30) Estimat Glomerular Filtration Rate mL/min (>60) Glucose Level 116 MG/DL (74-106) H Calcium Level 8.7 MG/DL (8.5-10.1) Phosphorus Level 2.4 MG/DL (2.5-4.9) L Magnesium Level 1.3 MG/DL (1.8-2.4) L Total Bilirubin 0.6 MG/DL (0.2-1.0) Aspartate Amino Transf (AST/SGOT) 34 U/L (15-37) Alanine Aminotransferase (ALT/SGPT) 43 U/L (12-78) Alkaline Phosphatase 67 U/L (46-116) Total Protein 5.8 G/DL (6.4-8.2) L Albumin 2.5 G/DL (3.4-5.0) L Globulin 3.3 g/dL Albumin/Globulin Ratio 0.8 (1.0-2.7) L Random Amikacin Level Pending Current Medications Medications (Trade) Dose Ordered Sig/Alice Route PRN Reason Start Time Stop Time Status Last Admin Dose Admin Alprazolam (Xanax) 0.5 mg EVERY 8 HOURS PRN GT For Anxiety 08/12/17 13:45 08/19/17 08:59 08/15/17 01:48 Amikacin Protocol (Amikacin pharmacy to dose) 1 ea DAILY PRN MISC . 08/14/17 17:00 09/13/17 16:59 Amikacin Sulfate 750 mg/Sodium Chloride 113 ml @ 113 mls/hr Q36H IV 08/14/17 18:00 08/21/17 17:59 08/14/17 17:55 Atenolol (Tenormin) 50 mg DAILY ORAL 08/12/17 09:00 09/11/17 08:59 08/15/17 08:21 Atorvastatin Calcium (Lipitor) 40 mg BEDTIME ORAL 08/12/17 21:00 09/11/17 20:59 08/14/17 20:45 Cilostazol (Pletal) 100 mg DAILY ORAL 08/12/17 09:00 09/11/17 08:59 08/15/17 08:20 Clonidine HCl (Catapres Tab) 0.1 mg Q8H PRN ORAL sbp>160 08/12/17 17:15 09/11/17 17:14 08/14/17 08:13 Dextrose/Sodium Chloride 1,000 ml @ 60 mls/hr [id number] IV 08/12/17 04:30 09/11/17 04:29 08/14/17 22:59 Escitalopram Oxalate (Lexapro) 20 mg DAILY ORAL 08/12/17 09:00 09/11/17 08:59 08/15/17 08:20 Heparin Sodium (Porcine) (Heparin 5000 units/ml) 5,000 units EVERY 12 HOURS SUBQ 08/12/17 21:00 09/11/17 20:59 08/15/17 08:23 Levothyroxine Sodium (Synthroid) 50 mcg DAILY@0630 ORAL 08/12/17 06:30 09/11/17 06:29 08/15/17 06:17 Lorazepam (Ativan 2mg/ml 1ml) 1 mg Q4H PRN IV For Anxiety 08/12/17 03:00 08/19/17 02:59 Metformin HCl (Glucophage) 500 mg BIAC ORAL 08/12/17 06:30 09/11/17 06:29 08/15/17 06:16 Morphine Sulfate (Morphine Sulfate) 2 mg Q4H PRN IM MOD-SEVERE PAIN 4-10 08/12/17 08:00 08/19/17 02:59 Patient Own Medication (Patient's Own Med) 1 ea DAILY@1700 TOPIC 08/14/17 17:00 09/13/17 16:59 08/14/17 16:18 Patient Own Medication (Patient's Own Med) 1 ea DAILY@1700 TOPIC 08/14/17 17:00 09/13/17 16:59 08/14/17 16:19 Tramadol HCl (Ultram) 50 mg EVERY 8 HOURS PRN GT pain 08/12/17 13:45 08/19/17 02:59 08/15/17 01:49 Vitamin D (Vitamin D) 400 intlu DAILY ORAL 08/12/17 09:00 09/11/17 08:59 08/15/17 08:20 ANDERSON NEFF M.D. Aug 15, 2017 09:13
--- NOTE | 2017-08-15 13:25 | Cardiology Progress Note ---
Assessment/Plan Assessment/Plan 1. Syncope likely due to hypovolemia as this was reflected in her admission chemistry with hypernatremia and pre-renal azotemia. Continue hydration. 2. 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 3. HTN, continue atenolol. 4. Hx of CVA in the past, recommend daily ASA use. Subjective Subjective Sinus rhythm at 84. Denies chest pain or SOB. Objective Last 24 Hour Vital Signs Date Time Temp Pulse Resp B/P (MAP) Pulse Ox O2 Delivery O2 Flow Rate FiO2 08/15/17 08:21 84 134/64 08/15/17 08:00 73 08/15/17 08:00 98.1 84 20 134/64 97 Room Air 98.1 08/15/17 04:00 69 08/15/17 04:00 96.1 80 20 134/65 97 Room Air 96.1 08/15/17 00:00 97.5 77 20 129/63 95 Room Air 97.5 08/15/17 00:00 73 08/14/17 20:00 79 08/14/17 20:00 97.7 78 20 150/78 96 Room Air 97.7 08/14/17 16:14 97.7 77 18 139/99 97 Room Air 97.7 08/14/17 15:45 98.1 08/14/17 15:09 81 08/14/17 14:46 98.1 Intake and Output 08/14/17 08/15/17 19:00 07:00 Intake Total 1178 ml 1245 ml Output Total 100 ml Balance 1178 ml 1145 ml Intake Free Water 150 ml 100 ml IV Total 533 ml 600 ml Tube Feeding 495 ml 495 ml Other 50 ml Output Urine Total 100 ml # Voids 2 2D Echo: LVEF 65%, Mild LVH, RVSP ~25 mmHg, grade 1 LVDD Laboratory Tests Test 08/15/17 05:45 Sodium Level 135 MMOL/L (136-145) L Potassium Level 4.1 MMOL/L (3.5-5.1) Chloride Level 102 MMOL/L (98-107) Carbon Dioxide Level 26 MMOL/L (21-32) Anion Gap 7 mmol/L (5-15) Blood Urea Nitrogen 13 mg/dL (7-18) Creatinine 0.6 MG/DL (0.55-1.30) Estimat Glomerular Filtration Rate mL/min (>60) Glucose Level 116 MG/DL (74-106) H Calcium Level 8.7 MG/DL (8.5-10.1) Phosphorus Level 2.4 MG/DL (2.5-4.9) L Magnesium Level 1.3 MG/DL (1.8-2.4) L Total Bilirubin 0.6 MG/DL (0.2-1.0) Aspartate Amino Transf (AST/SGOT) 34 U/L (15-37) Alanine Aminotransferase (ALT/SGPT) 43 U/L (12-78) Alkaline Phosphatase 67 U/L (46-116) Total Protein 5.8 G/DL (6.4-8.2) L Albumin 2.5 G/DL (3.4-5.0) L Globulin 3.3 g/dL Albumin/Globulin Ratio 0.8 (1.0-2.7) L Random Amikacin Level 12.0 MG/L Microbiology Date/Time Source Procedure Growth Status 08/13/17 19:30 Straight Cath Urine Culture - Preliminary Gram Negative Bacillus 1 Resulted Objective HEAD AND NECK: No JVP. No LAD. No thyromegaly. Extraocular movements intact. Pupils are reactive to light and accommodation. LUNGS: Has decreased breathing sounds on the both sides. CARDIAC: Regular rate and rhythm. S1 and S2. No murmur. No rub. ABDOMEN: Soft. PEG is in place. EXTREMITIES: No edema. No clubbing. No cyanosis. JANELLE SOUZA Aug 15, 2017 13:25
--- NOTE | 2017-08-15 15:30 | GI Progress Note ---
Assessment/Plan Problems: (1) Dehydration ICD Codes: E86.0 - Dehydration SNOMED: 27093387 (2) Anemia ICD Codes: D64.9 - Anemia, unspecified SNOMED: 014585036 (3) Hypoalbuminemia ICD Codes: E88.09 - Other disorders of plasma-protein metabolism, not elsewhere classified SNOMED: 320616310 (4) Feeding by G-tube ICD Codes: Z93.1 - Gastrostomy status SNOMED: 698418763, 164523872 (5) DM (6) Gastroparesis ICD Codes: K31.84 - Gastroparesis SNOMED: 724032530 Status: stable Status Narrative Discussed with Dr. Pedraza. Assessment/Plan KUB negative hep panel negative tolerating GTF will increase rate to 55 DM management, consider low dose erythromycin 50mg GT for GI motility if patient does not have history of arrhythmias. fu labs fu RD recs dvt prophylaxis d/w POC with caregiver at bedside. The patient was seen and examined at bedside and all new and available data was reviewed in the patients chart. I agree with the above findings, impression and plan. (Patient seen earlier today. Signature stamp does not reflect patient encounter time.). - Lisa Pedraza MD Subjective Subjective limited Objective Last 24 Hour Vital Signs Date Time Temp Pulse Resp B/P (MAP) Pulse Ox O2 Delivery O2 Flow Rate FiO2 08/15/17 08:21 84 134/64 08/15/17 08:00 73 08/15/17 08:00 98.1 84 20 134/64 97 Room Air 98.1 08/15/17 04:00 69 08/15/17 04:00 96.1 80 20 134/65 97 Room Air 96.1 08/15/17 00:00 97.5 77 20 129/63 95 Room Air 97.5 08/15/17 00:00 73 08/14/17 20:00 79 08/14/17 20:00 97.7 78 20 150/78 96 Room Air 97.7 08/14/17 16:14 97.7 77 18 139/99 97 Room Air 97.7 08/14/17 15:45 98.1 Intake and Output 08/14/17 08/15/17 19:00 07:00 Intake Total 1178 ml 1245 ml Output Total 100 ml Balance 1178 ml 1145 ml Intake Free Water 150 ml 100 ml IV Total 533 ml 600 ml Tube Feeding 495 ml 495 ml Other 50 ml Output Urine Total 100 ml # Voids 2 Laboratory Tests Test 08/15/17 05:45 Sodium Level 135 MMOL/L (136-145) L Potassium Level 4.1 MMOL/L (3.5-5.1) Chloride Level 102 MMOL/L (98-107) Carbon Dioxide Level 26 MMOL/L (21-32) Anion Gap 7 mmol/L (5-15) Blood Urea Nitrogen 13 mg/dL (7-18) Creatinine 0.6 MG/DL (0.55-1.30) Estimat Glomerular Filtration Rate mL/min (>60) Glucose Level 116 MG/DL (74-106) H Calcium Level 8.7 MG/DL (8.5-10.1) Phosphorus Level 2.4 MG/DL (2.5-4.9) L Magnesium Level 1.3 MG/DL (1.8-2.4) L Total Bilirubin 0.6 MG/DL (0.2-1.0) Aspartate Amino Transf (AST/SGOT) 34 U/L (15-37) Alanine Aminotransferase (ALT/SGPT) 43 U/L (12-78) Alkaline Phosphatase 67 U/L (46-116) Total Protein 5.8 G/DL (6.4-8.2) L Albumin 2.5 G/DL (3.4-5.0) L Globulin 3.3 g/dL Albumin/Globulin Ratio 0.8 (1.0-2.7) L Random Amikacin Level 12.0 MG/L Height (Feet): 5 Height (Inches): 2.00 Weight (Pounds): 120 General Appearance: WD/WN, no apparent distress, alert Cardiovascular: normal rate Respiratory/Chest: normal breath sounds, no respiratory distress Abdominal Exam: normal bowel sounds, non tender, soft, GT site - c/d/i Extremities: non-tender Tamiko Munoz N.Ken Aug 15, 2017 15:30 STEPHANIE PEDRAZA Aug 22, 2017 13:30
--- NOTE | 2017-08-15 16:29 | Physician Query ---
--------- THIS DOCUMENT IS A PERMANENT PART OF THE MEDICAL RECORD --------- PLEASE COMPLETE DOCUMENT BEFORE SIGNING Dear BREN Bailey Date: 08/15/17 Pearl Maker/CDS Name: Azul Vinson Pearl Maker/CDS Phone No. : [phone] Exercise your independent professional judgment when responding to the query. Questions asked do not imply a particular answer is desired or expected. We greatly appreciate your clarification on this issue. CLINICAL DOCUMENTATION STATES: Infectious Disease Consultation Note Dr. Lopez (08/13/17) "Possible sepsis" "The patient is a 76-year-old female with multiple medical problems, was admitted with impression of sepsis, possible urinary tract infection." "Patient is lethargic" CLINICAL FINDINGS SHOW: Temperature: 97.3, 96.8, 96.1, BP: 123/56, 110/53 UA: Leukocyte Esterase - 2+, WBC - 5-10, Bacteria - Many IV Abx: Aztreonam, Levofloxacine, Amikacin Clarification is needed for one (or more) of the following conditions in order to accurately assign the "present on admission' indicator. Please choose the answer that best indicates whether the associated condition was present at the time of the order for inpatient admission. Thank you. DIAGNOSIS: Sepsis Was the Sepsis Present on admission? [] YES [] NO [] Clinically Undeterminable Please also document in your Progress Notes and/or Discharge Summary and indicate if the condition was present on admission. Dr. BREN FLOWERS Date/Time [facility]
--- NOTE | 2017-08-15 23:15 | Consultation ---
DATE OF CONSULTATION: 08/12/2017 CARDIOLOGY CONSULTATION CONSULTING PHYSICIAN: Milan Alvarado M.D. REFERRING PHYSICIAN: Thang Tom D.O. REASON FOR CONSULTATION: Management of syncope. HISTORY OF PRESENT ILLNESS: The patient is a very unfortunate 76-year-old, female who presents to the hospital with episode of dizziness, weakness and possible syncope. Apparently, the patient was unresponsive and found to have TB. Blood pressure was noted to be low. Paramedics were called. At the time of arrival, fluid was given to the patient and the patient was transferred to [facility] Emergency Department. The patient has underlying severe Parkinson disease and is nonverbal at baseline. The caregiver is accompanied with the patient. At the time of arrival to the hospital, initial blood pressure was 110/75 mm Hg, pulse is 71. Initial 12-lead electrocardiogram was significant for sinus rhythm at a rate of [address] and T-wave abnormalities. Initial laboratory was significant for prerenal azotemia and slight hypernatremia and contraction alkalosis. PAST MEDICAL HISTORY: 1. Parkinson disease. 2. Diabetes mellitus. 3. Recurrent UTI. 4. CVA with contractions. 5. History of dysphagia, status post G-tube placement. PAST SURGICAL HISTORY: Gastric bypass in the past. G-tube placement. MEDICATIONS: List of medication include atenolol 50 mg p.o. daily, cilostazol 100 mg p.o. daily, Lexapro 20 mg p.o. daily, levothyroxine 50 mcg p.o. daily, metformin 500 mg p.o. twice daily, Crestor 10 mg p.o. daily, Neupro one patch daily, and vitamin D3 400 units p.o. daily. ALLERGIES: Clindamycin, iodine, levofloxacin, penicillin and sulfa. SOCIAL HISTORY: Lives at home with caregiver. FAMILY HISTORY: No premature coronary artery disease in first-degree relatives. REVIEW OF SYSTEMS: Given the fact the patient is nonverbal, 12 system review could not be done. PHYSICAL EXAMINATION: VITAL SIGNS: Blood pressure at time of arrival to the hospital was 110/75, respirations of 18, pulse of 71, temperature 97.3 degrees Fahrenheit, and O2 saturation 97% on room air. GENERAL: The patient is a very unfortunate lady, in no apparent respiratory distress and nonverbal. HEENT: Atraumatic and normocephalic. Pupils are equal, round, and reactive to light and accommodation. Extraocular muscles intact. NECK: JVP less than 5 centimeter. No carotid bruit. Carotid upstrokes 2+ bilaterally. CARDIOVASCULAR: Normal S1 and S2. Regular rate and rhythm. No murmurs, gallops, or rubs. PMI is at fourth intercostal space at the midclavicular line. LUNGS: Clear to auscultation bilaterally. ABDOMEN: Soft, nontender, and nondistended. No hepatosplenomegaly. Positive G-tube in place. EXTREMITIES: No evidence of edema, clubbing, or cyanosis. LABORATORY AND DIAGNOSTIC DATA: Imaging, chest x-ray on 08/11/2017 shows no acute cardiopulmonary disease. Apparent dislocation of right shoulder. Laboratory findings, WBC was 7.6, hemoglobin 9.1, hematocrit of 28.1 and platelet count 152. Sodium was 143, potassium is 4.1, chloride 112, bicarbonate 27, BUN of 23, creatinine 0.7 and glucose is 93. Calcium is 8.9. INR was 1.7. Urine showed positive wbc 5 to 10 with positive nitrate, 3+ occult blood, 2 to 4 rbc and positive leukocyte esterase consistent with UTI. ASSESSMENT AND PLAN: The patient is a very unfortunate 76-year-old lady who is seen in Cardiology consultation at the request of Dr. Tom. 1. Syncope, this is most likely due to dehydration, as there is presence of a hypovolemia on laboratory data in view of prerenal azotemia and contraction alkalosis and hypernatremia. The patient will benefit from aggressive hydration. A 2D echocardiography report is pending. We will also obtain carotid artery ultrasound as well as that can be obtained. We will assess her cardiac rhythm during her stay. Further therapeutic and diagnostic decision will be based on the results of the above studies. 2. History of Parkinson disease. 3. History of dysphagia, status post PEG placement. 4. History of CVA. I would recommend aspirin and statin. 5. History of diabetes mellitus. I would like to thank, Dr. Tom, for the courtesy of this consultation. Milan Alvarado M.D. DR: FOREST JOB#: [id number] CC:
--- NOTE | 2017-08-17 11:28 | Discharge Summary ---
Discharge Summary Hospital Course Date of Admission Aug 11, 2017 at 19:13 Date of Discharge Aug 15, 2017 at 11:19 Admitting Diagnosis syncope hypotension HPI Tata Becerra is a 76 year old female who was admitted on Aug 11, 2017 at 19: 13 for Syncope, Hypotension Hospital Course [id number] Discharge Discharge Disposition Patient was discharged to Home with Home Health(06) Discharge Diagnoses: Ev Cruz NP Aug 17, 2017 11:28
--- NOTE | 2017-08-18 03:30 | Discharge Summary 2 SIG ---
DATE OF ADMISSION: 08/11/2017 DATE OF DISCHARGE: 08/15/2017 CONSULTANTS: 1. Milan Alvarado M.D. 2. Rolf Muñoz M.D. 3. Jamie Lopez M.D. 4. Erendira Simms M.D. 5. Pastor Pedraza M.D. BRIEF HOSPITAL COURSE: The patient is a 76-year-old female, who lives at home presented to ED for episodes of dizziness and weakness with possible syncope. The patient apparently was watching TV and became unresponsive. Blood pressure was checked by caregiver and was noted to be very low. Paramedics were then called in and when paramedics arrived, she was given fluids and the patient was transported to [facility]. She has past medical history of severe Parkinson disease and has a G-tube and has history of multiple strokes, hyperlipidemia, and hypertension. She had a major left hemispheric stroke 12 years ago and had recurrent several strokes where she developed quadriparesis with only the left arm moving. On evaluation at ED, blood pressure was 110/75. EKG showed normal sinus rhythm with no acute changes. Chest x-ray done showed right middle lobe atelectasis, negative for effusion, negative pneumothorax. Blood work showed no leukocytosis, hemoglobin was 9.1 and hematocrit was 28. Sodium was 143, chloride was 112, and BUN was 23. She was admitted for evaluation of hypotension and possible syncope. Her urine showed 2+ leukocyte esterase with 5 to 10 WBC, 2 to 4 RBCs and positive nitrite. She was followed by Infectious Disease specialist and was started empirically on aztreonam, pending culture results. She initially was having high gastric feeding residuals given diagnosis of Parkinson's, unable to give Reglan. She had a KUB done that showed no acute findings. Abdominal ultrasound showed non-visualized gallbladder, negative for dilated ducts. She underwent cardiac evaluation. Syncopal episode was preceded by presyncope, most probably due to intravascular volume depletion evident on chemistry panel. She was given IV hydration. Echocardiogram done showed EF of 65% to 70% with normal left ventricular size, function, and wall motion. Urine culture showed growth of ESBL E. coli. Aztreonam was discontinued and was given IV amikacin. She had elevated liver function tests. Abdominal ultrasound and hepatitis panel was negative. Transaminitis eventually normalized. She was tolerating feeding. Feeding goal was increased to 55 per hour. She also underwent urological evaluation and was recommended to continue with supportive symptomatic care. She was given aspirin and Lipitor. She was taken off antibiotic treatment and was eventually discharged home with home health. FINAL DIAGNOSES: 1. Probable sepsis. 2. Probable urinary tract infection with extended spectrum beta-lactamases Escherichia coli. 3. Weakness secondary to above and altered level of consciousness/ encephalopathy,improved. 4. Elevated liver transaminitis. 5. Diabetes mellitus. 6. Parkinson disease. 7. Status post multiple strokes with spastic quadriparesis, right more than left, partial global aphasia and vascular dementia. 8. Hypothyroidism. 9. Hyperlipidemia. 10. Syncope secondary to hypovolemia. 11. Acute kidney injury most likely due to dehydration and prerenal azotemia. 12. Anemia. 13. Feeding by gastrostomy tube. 14. Gastroparesis. 15. Hypoalbuminemia. DISPOSITION: The patient was discharged home with [facility]. DISCHARGE MEDICATIONS: Refer to medication list. DISCHARGE INSTRUCTIONS: Follow up as outpatient in a week. Thang Tom D.O. I have been assigned to dictate discharge summary on this account and I was not involved in the patient's management. Ev Cruz N.P. DR: VONDA JOB#: [id number] CC: TRICIA
--- NOTE | 2017-08-22 23:58 | Cardiology Progress Note ---
Assessment/Plan Assessment/Plan 1. Syncope likely due to hypovolemia as this was reflected in her admission chemistry with hypernatremia and pre-renal azotemia. Continue hydration. 2. DM, fci ASA and statins. 3. HTN, continue atenolol. 4. Hx of CVA in the past, recommend daily ASA use. Subjective Subjective Sinus rhythm at 84. Denies chest pain or SOB. Objective Objective HEAD AND NECK: No JVP. No LAD. No thyromegaly. Extraocular movements intact. Pupils are reactive to light and accommodation. LUNGS: Has decreased breathing sounds on the both sides. CARDIAC: Regular rate and rhythm. S1 and S2. No murmur. No rub. ABDOMEN: Soft. PEG is in place. EXTREMITIES: No edema. No clubbing. No cyanosis. JANELLE SOUZA Aug 22, 2017 23:58
--- NOTE | 2017-08-23 16:53 | Cardiology Report ---
APPROVED REPORT EKG Measurement Heart [id number] Normal sinus rhythm Normal ECG
== END 2017-08-15 11:19 | disposition home health service (06) | DRG 871 ==
LOC: EDBD 16:49 → EDBEDREQ 17:11 → EMR 18:41 → 2E 19:13 → EDBEDREQ 19:18 → 2E 21:39
DX: A41.9 Sepsis, unspecified organism (principal); G82.50 Quadriplegia, unspecified; N17.9 Acute kidney failure, unspecified; I95.9 Hypotension, unspecified; E88.09 Other disorders of plasma-protein metabolism, not elsewhere classified; G20 Parkinson's disease; K31.84 Gastroparesis; N39.0 Urinary tract infection, site not specified; E11.43 Type 2 diabetes mellitus with diabetic autonomic (poly)neuropathy; J98.11 Atelectasis; E86.0 Dehydration; D64.9 Anemia, unspecified; Z93.1 Gastrostomy status; I69.365 Other paralytic syndrome following cerebral infarction, bilateral; I69.320 Aphasia following cerebral infarction; I69.319 Unspecified symptoms and signs involving cognitive functions following cerebral infarction; F01.50 Vascular dementia, unspecified severity, without behavioral disturbance, psychotic disturbance, mood disturbance, and anxiety; E03.9 Hypothyroidism, unspecified; B96.20 Unspecified Escherichia coli [E. coli] as the cause of diseases classified elsewhere; E78.5 Hyperlipidemia, unspecified; E86.1 Hypovolemia; Z88.1 Allergy status to other antibiotic agents; Z88.0 Allergy status to penicillin; Z74.01 Bed confinement status; Z88.2 Allergy status to sulfonamides; I10 Essential (primary) hypertension; Z98.84 Bariatric surgery status; Z79.84 Long term (current) use of oral hypoglycemic drugs
CPT/HCPCS: 36415; 71045; 74018; 76700; 76705; 80048; 80053; 80150; 81001; 81003; 82043; 82044; 82570; 82962; 83735; 84100; 84300; 85025; 85610; 85730; 86705; 86709; 86803; 87040; 87086; 87181; 87340; 93005; 93306; 99285

== ENCOUNTER 2017-09-13 09:38 | Inpatient (IN) | payer MEDICARE ==
[~2017-09-13] VITALS: Ht 162.6 cm; Wt 61.2 kg
[~2017-09-13 09:38] MED LIST: ALPRAZOLAM0.5 MG PO; ATENOLOL50 MG ORAL; CILOSTAZOL100 MG PO; CRESTOR10 M2 ORAL; LEVOTHYROXINE50 MCG ORAL; LEXAPRO20 MG ORAL; NEUPRO1 EAC1 TD; NEUPRO1 EAC2 TD; RIOMET500 MG/5 M PO; TRAMADOL HCL50 MG ORAL; VITAMIN D400 INTLU ORAL
[2017-09-13 09:57] VITALS: BP 181/80
[2017-09-13] MEDS ORDERED: Pantoprazole Inj IV ONE (10:00)
[2017-09-13 11:03] LABS: APPEARANCE,URINE CLEAR; BILIRUBIN, URINE NEGATIVE (NEGATIVE); COLOR,URINE PALE YELLOW; GLUCOSE, URINE (UA) NEGATIVE (NEGATIVE); KETONES,URINE NEGATIVE (NEGATIVE); LEUKOCYTE ESTERASE ,URINE 1+ (NEGATIVE); NITRITE,URINE NEGATIVE (NEGATIVE); PH,URINE 8 (4.5-8.0); PROTEIN,URINE NEGATIVE (NEGATIVE); UROBILINOGEN,URINE 8 MG/DL (0.0-1.0)
[2017-09-13 11:14] LABS: BASOPHILS % (AUTO) 1.1 % (0.0-2.0); EOSINOPHILS % (AUTO) 5.1 % (0.0-3.0); HEMATOCRIT 34.5 % (37.0-47.0); HEMOGLOBIN 11.4 G/DL (12.0-16.0); LYMPHOCYTES % (AUTO) 16.7 % (20.0-45.0); MEAN CORPUSCULAR VOLUME 93 FL (80-99); MONOCYTES % (AUTO) 8.5 % (1.0-10.0); NEUTROPHILS % (AUTO) 68.6 % (45.0-75.0); PLATELET COUNT 262 K/UL (150-450); RED BLOOD COUNT 3.73 M/UL (4.20-5.40); RED CELL DISTRIBUTION WIDTH 12.4 % (11.6-14.8); WHITE BLOOD COUNT 8.4 K/UL (4.8-10.8)
[2017-09-13 11:19] LABS: ANION GAP 2 mmol/L (5-15); BLOOD UREA NITROGEN 28 mg/dL (7-18); CALCIUM 9.4 MG/DL (8.5-10.1); CARBON DIOXIDE 33 MMOL/L (21-32); CHLORIDE 104 MMOL/L (98-107); CREATININE 0.7 MG/DL (0.55-1.30); POTASSIUM 4.9 MMOL/L (3.5-5.1); SODIUM 139 MMOL/L (136-145)
[2017-09-13 11:24] LABS: ALANINE AMINOTRANSFERASE 39 U/L (12-78); ALBUMIN 2.5 G/DL (3.4-5.0); ALBUMIN/GLOBULIN RATIO 0.7 (1.0-2.7); ALKALINE PHOSPHATASE 56 U/L (46-116); ASPARTATE AMINO TRANSFERASE 39 U/L (15-37); BILIRUBIN,TOTAL 0.5 MG/DL (0.2-1.0); INR 0.9 (0.9-1.1)
[2017-09-13] MEDS ORDERED: Morphine Sulfate 4mg/ml Inj IVP ONE (11:30)
[2017-09-13] MEDS ORDERED: TRAZODONE HCL150 MG GT (11:50)
[2017-09-13] MEDS ORDERED: ALPRAZOLAM1 MG ORAL (11:50)
[2017-09-13 11:51] VITALS: BP 131/103
--- NOTE | 2017-09-13 12:01 | Diagnostic Imaging Report ---
Indication: Dyspnea Comparison: August 11, 2017 A single view chest radiograph was obtained. Findings: No definite infiltrate or pulmonary vascular congestion identified. The heart is normal in size. The aorta is mildly enlarged consistent with atherosclerotic vascular disease. There is an old dislocation of the right shoulder. This was seen previously as well. The bones are osteopenic. Impression: No acute disease
[2017-09-13 12:31] VITALS: BP 95/32
--- NOTE | 2017-09-13 12:33 | Emergency Room Report ---
History of Present Illness General Chief Complaint: Vomiting Source: Medical Record, Caregiver Present Illness HPI 76-year-old female presents ED for evaluation. Patient presenting with coffee- ground emesis 2 today. Business Continuity Director at bedside. States patient has history of GI bleed. Not on blood thinners. Patient has history of Parkinsons and is nonverbal at baseline. Unable to provide any additional history at this time. No reported chest pain or shortness of breath. No other aggravating relieving factors. No other associated symptoms Allergies: Coded Allergies: CLINDAMYCIN (Verified Allergy, Unknown, 08/11/17) IODINE (Verified Allergy, Unknown, 08/11/17) LATEX (Verified Allergy, Unknown, 08/11/17) LEVOFLOXACIN (Verified Allergy, Unknown, rash, 08/11/17) PENICILLINS (Verified Allergy, Unknown, 08/11/17) QUETIAPINE (Verified Allergy, Unknown, 08/11/17) SULFA (SULFONAMIDE ANTIBIOTICS) (Unverified Allergy, Unknown, 08/11/17) TETANUS VACCINES AND TOXOID (Unverified Allergy, Unknown, 08/11/17) Uncoded Allergies: FISH (Allergy, Unknown, 08/11/17) TAPE ADHERENT (Allergy, Unknown, 08/11/17) Patient History Past Medical History: DM, GI bleed, other - parkinsons Pertinent Family History: none Social History: Denies: smoking, alcohol use, drug use Now: No Immunizations: UTD Reviewed Nursing Documentation: PMH: Agreed; PSxH: Agreed Nursing Documentation-PMH Past Medical History: No History, Except For Hx Hypertension: Yes - hypothyroidism Hx Diabetes: Yes Hx Gastrointestinal Problems: Yes - GI bleeding Hx Transient Ischemic Attacks: Yes Hx Parkinson's Disease: Yes Hx Speech Problem: Yes Review of Systems All Other Systems: negative except mentioned in HPI Physical Exam Vital Signs Date Time Temp Pulse Resp B/P (MAP) Pulse Ox O2 Delivery O2 Flow Rate FiO2 09/13/17 09:44 99.2 84 16 181/80 93 Room Air 99.1 Sp02 EP Interpretation: reviewed, normal General Appearance: no apparent distress, cachetic, other - nonverbal Head: normocephalic, atraumatic Eyes: bilateral eye normal inspection, bilateral eye PERRL ENT: hearing grossly normal, normal pharynx, no angioedema, normal voice Neck: full range of motion, supple/symm/no masses Respiratory: chest non-tender, lungs clear, normal breath sounds, speaking full sentences Cardiovascular #1: regular rate, rhythm, no edema Cardiovascular #2: 2+ carotid (R), 2+ carotid (L), 2+ radial (R), 2+ radial (L) , 2+ dorsalis pedis (R), 2+ dorsalis pedis (L) Gastrointestinal: normal bowel sounds, non tender, soft, non-distended, no guarding, no rebound Rectal: deferred Genitourinary: normal inspection, no CVA tenderness Musculoskeletal: back normal, gait/station normal, normal range of motion, non- tender Neurologic: other - nonverbal Psychiatric: other - nonerbal Reflexes: 3+ bicep (R), 3+ bicep (L), 3+ tricep (R), 3+ tricep (L), 3+ knee (R) , 3+ knee (L) Skin: normal color, no rash, warm/dry, well hydrated Lymphatic: no adenopathy Medical Decision Making Diagnostic Impression: Primary Impression: Upper GI bleed ER Course Hospital Course 76-year-old female presents ED with coffee-ground emesis. History of GI bleed Differential diagnoses include: UGIB, LGIB, hemorrhoids Clinical course Patient placed on stretcher. bus monitor. After initial history and physical I ordered labs, IV fluids, ekg, cxr, protonix, zofran Labs - no leukocytosis, Hb/Hct stable. BUN elevated. UA unremarkable EKG - NSR, no acute ischemic changes interpreted by me CXR - no acute process BP dropped somewhat during ED course. Improved with IV fluids Case discussed with Dr. Flowers and he agreed to accept the patient to his service for further care and support I feel this is a highly complex case requiring extensive working including EKG/ Rhythm strip, Xray/CT/US, Blood/urine lab work, repeat exams while in ED, and administration of strong opiates/narcotics for pain control, admission to hospital or close patient follow up. Diagnosis - UGIB Patient admitted to telemetry in serious condition Labs Test 09/13/17 10:45 White Blood Count 8.4 K/UL (4.8-10.8) Red Blood Count 3.73 M/UL (4.20-5.40) Hemoglobin 11.4 G/DL (12.0-16.0) Hematocrit 34.5 % (37.0-47.0) Mean Corpuscular Volume 93 FL (80-99) Mean Corpuscular Hemoglobin 30.5 PG (27.0-31.0) Mean Corpuscular Hemoglobin Concent 32.9 G/DL (32.0-36.0) Red Cell Distribution Width 12.4 % (11.6-14.8) Platelet Count 262 K/UL (150-450) Mean Platelet Volume 7.5 FL (6.5-10.1) Neutrophils (%) (Auto) 68.6 % (45.0-75.0) Lymphocytes (%) (Auto) 16.7 % (20.0-45.0) Monocytes (%) (Auto) 8.5 % (1.0-10.0) Eosinophils (%) (Auto) 5.1 % (0.0-3.0) Basophils (%) (Auto) 1.1 % (0.0-2.0) Prothrombin Time 9.6 SEC (9.30-11.50) Prothromb Time International Ratio 0.9 (0.9-1.1) Activated Partial Thromboplast Time 25 SEC (23-33) Urine Color Pale yellow Urine Appearance Clear Urine pH 8 (4.5-8.0) Urine Specific [place] 1.010 (1.005-1.035) Urine Protein Negative (NEGATIVE) Urine Glucose (UA) Negative (NEGATIVE) Urine Ketones Negative (NEGATIVE) Urine Occult Blood Negative (NEGATIVE) Urine Nitrite Negative (NEGATIVE) Urine Bilirubin Negative (NEGATIVE) Urine Urobilinogen 8 MG/DL (0.0-1.0) Urine Leukocyte Esterase 1+ (NEGATIVE) Urine RBC 0-2 /HPF (0 - 2) Urine WBC 0-2 /HPF (0 - 2) Urine Squamous Epithelial Cells Few /LPF (NONE/OCC) Urine Amorphous Sediment Few /LPF (NONE) Urine Bacteria Occasional /HPF (NONE) Sodium Level 139 MMOL/L (136-145) Potassium Level 4.9 MMOL/L (3.5-5.1) Chloride Level 104 MMOL/L (98-107) Carbon Dioxide Level 33 MMOL/L (21-32) Anion Gap 2 mmol/L (5-15) Blood Urea Nitrogen 28 mg/dL (7-18) Creatinine 0.7 MG/DL (0.55-1.30) Estimat Glomerular Filtration Rate mL/min (>60) Glucose Level 145 MG/DL (74-106) Calcium Level 9.4 MG/DL (8.5-10.1) Total Bilirubin 0.5 MG/DL (0.2-1.0) Aspartate Amino Transf (AST/SGOT) 39 U/L (15-37) Alanine Aminotransferase (ALT/SGPT) 39 U/L (12-78) Alkaline Phosphatase 56 U/L (46-116) Troponin I 0.000 ng/mL (0.000-0.056) Total Protein 6.3 G/DL (6.4-8.2) Albumin 2.5 G/DL (3.4-5.0) Globulin 3.8 g/dL Albumin/Globulin Ratio 0.7 (1.0-2.7) Lipase 125 U/L (73-393) EKG Diagnostic Results Rate: normal Rhythm: NSR ST Segments: no acute changes ASA given to the pt in ED: No Rhythm Strip Diag. Results EP Interpretation: yes Rhythm: NSR, no PVC's, no ectopy Chest X-Ray Diagnostic Results Chest X-Ray Diagnostic Results : Chest X-Ray Ordered: Yes # of Views/Limited/Complete: 1 View Indication: Other - vomiting EP Interpretation: Yes Interpretation: no consolidation, no effusion, no pneumothorax, no acute cardiopulmonary disease Electronically Signed by: Electronically signed by David Miller MD Last Vital Signs Date Time Temp Pulse Resp B/P (MAP) Pulse Ox O2 Delivery O2 Flow Rate FiO2 09/13/17 12:04 99.2 09/13/17 11:51 72 19 131/103 96 Room Air Status: improved Disposition: ADMITTED INPATIENT Condition: Serious Referrals: BREN FLOWERS (PCP) David Miller MD Sep 13, 2017 12:33
[2017-09-13] MEDS ORDERED: METFORMIN HCL500 M1 ORAL (13:55)
--- NOTE | 2017-09-13 15:10 | Consultation ---
Jamie Lopez MD Sep 13, 2017 15:10
--- NOTE | 2017-09-13 15:56 | Consultation ---
Consult Note Consult Note [id number] Jamie Lopez MD Sep 13, 2017 15:56
--- NOTE | 2017-09-13 16:45 | Consultation ---
DATE OF CONSULTATION: 09/13/2017 GASTROENTEROLOGY CONSULTATION CONSULTING PHYSICIAN: Pastor Pedraza M.D. CHIEF COMPLAINT: Coffee-ground emesis. HISTORY OF PRESENT ILLNESS: History was mostly obtained per chart and per caregiver at the bedside. This is a very pleasant 76-year-old female with past medical history of Parkinson disease, history of dysphagia requiring G-tube placement since August 2017, who was brought by the caregiver given the patient had coffee-ground emesis. PAST MEDICAL HISTORY: 1. Diabetes. 2. Dysphagia requiring G-tube placement. 3. Prior history of upper GI bleeding. 4. Parkinson disease. 5. The patient is bedbound. 6. Hypothyroidism. ALLERGIES: To clindamycin, iodine, latex, levofloxacin, penicillin, sulfa medication, adherent tape, tetanus vaccine toxoid. SOCIAL HISTORY: Currently lives at home with a caregiver. No recent history of tobacco, alcohol, or drug abuse. FAMILY HISTORY: Noncontributory. REVIEW OF SYSTEMS: Unable to obtain. PAST SURGICAL HISTORY: Per chart, none. PHYSICAL EXAMINATION: VITAL SIGNS: Temperature 99.2, pulse 69, respirations 19, blood pressure 95/32. HEENT: Normocephalic and atraumatic. Sclerae anicteric. NECK: Supple. No obvious lymphadenopathy. CARDIOVASCULAR: Regular rhythm. Plus S1 and S2. No obvious murmur. LUNGS: Decreased breath sounds at bilateral bases on supine exam. ABDOMEN: Soft. There is minimal tenderness to palpation around the G-tube site. No rebound. No guarding. No peritoneal sign. EXTREMITIES: No cyanosis, no clubbing, no edema. LABORATORY DATA: White count 8.4, hemoglobin 11.4, and platelet count 262,000. ASSESSMENT AND PLAN: This is a 76-year-old female, bedbound with Parkinson's, dysphagia with G-tube, prior history of GI bleeding, admitted to the hospital with coffee-ground emesis. Plan will be to keep the patient n.p.o. for now, start the patient on Protonix twice a day IV, monitor hemoglobin and hematocrit and transfuse as needed, and plan to do an endoscopy tomorrow to evaluate for source of upper GI bleed. Pastor Braulio Pedraza DR: Devika JOB#: [id number] CC:
[2017-09-13] MEDS: NovoLOG Insulin Flexpen SUBQ SCH (17:12)
--- NOTE | 2017-09-13 18:00 | History and Physical Report ---
DATE OF ADMISSION: 09/13/2017 APPROXIMATE TIME: 2 p.m. CONSULTANTS: 1. Pastor Pedraza M.D. 2. Jamie Lopez M.D. CHIEF COMPLAINT: Upper GI bleed. BRIEF HISTORY: The patient is a 76-year-old female with advanced Parkinson who lives at home with labor expediter under home health apparently presents with increased positive stool guaiac for blood. The patient diagnosed with upper gastrointestinal bleed, weakness, lethargy, and admitted to telemetry for further care. Currently lethargic in bed, nonverbal. REVIEW OF SYSTEMS: Unavailable. PAST MEDICAL HISTORY: Includes Parkinson, diabetes, CVA. PAST SURGICAL HISTORY: G-tube. MEDICATIONS: Tenormin, Synthroid, Glucophage, Protonix. ALLERGIES: Clindamycin, iodine, Lasix, levofloxacin, penicillin, quetiapine, sulfa. SOCIAL HISTORY: No smoking. No alcohol. No intravenous drug use. FAMILY HISTORY: Noncontributory. PHYSICAL EXAMINATION: GENERAL: Lethargic in bed, nonverbal. CARDIOVASCULAR: No murmur. LUNGS: Poor air exchange. ABDOMEN: Bowel sounds distant. EXTREMITIES: No cyanosis, clubbing, or edema. NEUROLOGIC: The patient is flaccid, not following directions. LABORATORY DATA: Hemoglobin 11.4, otherwise CBC is normal. BUN and creatinine 20 and 0.7, CO2 33, glucose 145. Albumin 2.5. INR is . Urinalysis show 1+ leukocyte esterase. ASSESSMENT: 1. Upper GI bleed. 2. CVA. 3. Parkinson. 4. Anemia. 5. Diabetes. 6. UTI. PLAN: 1. Continue premeds. 2. OT/PT. 3. Dietary evaluation. 4. CBC and BMP in the morning 5. Antibiotics per Infectious Diseases. 6. Blood sugar control. 7. Resume home medications. 8. We will continue to follow the patient. Thang Tom D.O. DR: Flako JOB#: [id number] CC:
[2017-09-13] MEDS: ALPRAZolam 0.5mg tab ORAL PRN (18:08)
--- NOTE | 2017-09-13 20:00 | Consultation ---
DATE OF CONSULTATION: 09/13/2017 INFECTIOUS DISEASE CONSULTATION CONSULTING PHYSICIAN: Jamie Lopez M.D. REQUESTING PHYSICIAN: Thang Tom D.O. REASON FOR CONSULTATION: Evaluation of the patient for possible aspiration pneumonia, G-tube cellulitis, antibiotic management. HISTORY OF PRESENT ILLNESS: The patient is a 76-year-old female with multiple medical problems as listed below, who was brought to the hospital because of a coffee-ground emesis. The patient had one episode of cough after that, however, she is not coughing since then. She has not able to provide information. Much information gathered through the chart and speaking to the patient's caregiver at the bedside. 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 3. Parkinson disease. 4. History of atrial fibrillation. 5. Hypertension. 6. Asthma. 7. History of GI bleed in the past. 8. History of appendectomy. 9. Diabetes. 10. Anemia. 11. History of aspiration pneumonia. FAMILY HISTORY: Noncontributory. MEDICATIONS: Currently, she is off of antibiotics. ALLERGIES: , Levaquin, penicillin, sulfa and tetanus shot. FAMILY HISTORY: Not contributing. REVIEW OF SYSTEMS: Unobtainable. Much of the information is gathered through review of the chart and speaking to the patient's private caregivers. PHYSICAL EXAMINATION: VITAL SIGNS: Temperature 99 degrees, blood pressure 95/52, pulse 86, and respiratory rate 18. HEENT: Mild pale conjunctivae. No icterus. NECK: No lymphadenopathy. CHEST: Clear. HEART: S1 and S2. ABDOMEN: Soft. G-tube in place. The patient has an extensive rash suggestive of candidiasis; however, no cellulitis. EXTREMITIES: Contracted. NEUROLOGIC: Awake. LABORATORY AND DIAGNOSTIC DATA: White blood cells 8, hemoglobin 11, and platelets 262. UA unremarkable. BUN and creatinine are unremarkable. Hepatitis panel negative. Urine cultures growing ESBL E. coli. Ultrasound of the abdomen unremarkable. Chest x-ray, [facility] on 08/11/2017. ASSESSMENT: The patient is a 76-year-old female with; 1. Upper GI bleed, no evidence of aspiration. Repeat chest x-ray. The patient has no cough. 2. Afebrile. 3. Normal white blood cells. 4. Urine cultures growing ESBL E. coli; however, with colonization. No need for treatment. 5. Candidiasis at the G-tube site. 6. No evidence of sepsis. PLAN: 1. We will monitor the patient off of IV antibiotics. 2. Clotrimazole b.i.d. to be applied to this site. 3. Monitor chest x-ray. 4. Monitor CBC and BMP. 5. Fever. 6. Based on the patient's clinical course and labs, we will do further recommendation. Thank you, Dr. Thang Tom, for allowing me to participate in the care of this patient. I will follow the patient with you. Jamie Lopez M.D. DR: DOMENICA JOB#: [id number] CC:
[2017-09-13] MEDS ORDERED: Atorvastatin 20mg tab GT SCH (21:00)
[2017-09-13] MEDS: Pantoprazole Inj IVP SCH (21:31)
[2017-09-13 21:42] VITALS: BP 96/55
[2017-09-14] VITALS (11 sets, daily range): BP systolic 89–153; BP diastolic 44–74
[2017-09-14] MEDS: TraZODone 100mg tab GT PRN (02:01)
[2017-09-14] MEDS ORDERED: DiphenhydrAMINE 50mg/ml Inj IVP PRN (06:00)
[2017-09-14] MEDS ORDERED: Atropine Inj 1mg/10ml Syr IV PRN (06:00)
[2017-09-14] MEDS ORDERED: Midazolam 2mg/2ml Inj IVP PRN (06:00)
[2017-09-14] MEDS ORDERED: fentaNYL 100 mcg/2 mL IV PRN (06:00)
--- NOTE | 2017-09-14 06:03 | Anethesia Preoperative Eval ---
Anesthesia Pre-op PMH/ROS General Date of Evaluation: Sep 14, 2017 Time of Evaluation: 06:01 Anesthesiologist: chavo ASA Score: ASA 3 Mallampati Score Class I : Soft palate, uvula, fauces, pillars visible Class II: Soft palate, uvula, fauces visible Class III: Soft palate, base of uvula visible Class IV: Only hard plate visible Mallampati Classification: Class II Surgeon: jena Diagnosis: ugib Surgical Procedure: egd Anesthesia History: none Social History: smoking - nonsmoker Family History: no anesthesia problems Allergies: Coded Allergies: CLINDAMYCIN (Verified Allergy, Unknown, 08/11/17) IODINE (Verified Allergy, Unknown, 08/11/17) LATEX (Verified Allergy, Unknown, 08/11/17) LEVOFLOXACIN (Verified Allergy, Unknown, rash, 08/11/17) PENICILLINS (Verified Allergy, Unknown, 08/11/17) QUETIAPINE (Verified Allergy, Unknown, 08/11/17) SULFA (SULFONAMIDE ANTIBIOTICS) (Unverified Allergy, Unknown, 08/11/17) TETANUS VACCINES AND TOXOID (Unverified Allergy, Unknown, 08/11/17) Uncoded Allergies: FISH (Allergy, Unknown, 08/11/17) TAPE ADHERENT (Allergy, Unknown, 08/11/17) Medications: see eMAR Past Medical History Cardiovascular: Reports: HTN, arrhythmia Pulmonary: Reports: asthma Gastrointestinal/Genitourinary: Reports: other - uti Neurologic/Psychiatric: Reports: CVA, TIA, other - parkinson's disease Endocrine: Reports: DM HEENT: Reports: cataract (R) Musculoskeletal/Integumentary: Reports: other - rue contracture Anesthesia Pre-op Phys. Exam Physician Exam Last Vital Signs Date Time Temp Pulse Resp B/P (MAP) Pulse Ox O2 Delivery O2 Flow Rate FiO2 09/14/17 04:27 82 09/14/17 04:24 99.0 20 100/44 97 Nasal Cannula 2.0 99.0 Constitutional: NAD Neurologic: other - contractures Cardiovascular: RRR Respiratory: CTA Gastrointestinal: S/NT/ND, other - feeding tube Airway Exam Mallampati Score: Class II MO: limited Neck: short TMD: 2fb ROM: limited Anesthesia Pre-op A/P Labs Hematology Test 09/13/17 10:45 White Blood Count 8.4 K/UL (4.8-10.8) Red Blood Count 3.73 M/UL (4.20-5.40) L Hemoglobin 11.4 G/DL (12.0-16.0) L Hematocrit 34.5 % (37.0-47.0) L Mean Corpuscular Volume 93 FL (80-99) Mean Corpuscular Hemoglobin 30.5 PG (27.0-31.0) Mean Corpuscular Hemoglobin Concent 32.9 G/DL (32.0-36.0) Red Cell Distribution Width 12.4 % (11.6-14.8) Platelet Count 262 K/UL (150-450) Mean Platelet Volume 7.5 FL (6.5-10.1) Neutrophils (%) (Auto) 68.6 % (45.0-75.0) Lymphocytes (%) (Auto) 16.7 % (20.0-45.0) L Monocytes (%) (Auto) 8.5 % (1.0-10.0) Eosinophils (%) (Auto) 5.1 % (0.0-3.0) H Basophils (%) (Auto) 1.1 % (0.0-2.0) Coagulation Test 09/13/17 10:45 Prothrombin Time 9.6 SEC (9.30-11.50) Prothromb Time International Ratio 0.9 (0.9-1.1) Activated Partial Thromboplast Time 25 SEC (23-33) Chemistry Test 09/13/17 10:45 Sodium Level 139 MMOL/L (136-145) Potassium Level 4.9 MMOL/L (3.5-5.1) Chloride Level 104 MMOL/L (98-107) Carbon Dioxide Level 33 MMOL/L (21-32) H Anion Gap 2 mmol/L (5-15) L Blood Urea Nitrogen 28 mg/dL (7-18) H Creatinine 0.7 MG/DL (0.55-1.30) Estimat Glomerular Filtration Rate mL/min (>60) Glucose Level 145 MG/DL (74-106) H Calcium Level 9.4 MG/DL (8.5-10.1) Total Bilirubin 0.5 MG/DL (0.2-1.0) Aspartate Amino Transf (AST/SGOT) 39 U/L (15-37) H Alanine Aminotransferase (ALT/SGPT) 39 U/L (12-78) Alkaline Phosphatase 56 U/L (46-116) Troponin I 0.000 ng/mL (0.000-0.056) Total Protein 6.3 G/DL (6.4-8.2) L Albumin 2.5 G/DL (3.4-5.0) L Globulin 3.8 g/dL Albumin/Globulin Ratio 0.7 (1.0-2.7) L Lipase 125 U/L (73-393) Risk Assessment & Plan Assessment: asa3 Plan: mac Status Change Before Surgery: No Pre-Antibiotics Drug: RICO Beal Sep 14, 2017 06:03
[2017-09-14] MEDS: ALPRAZolam 0.5mg tab ORAL PRN ×2 (06:45→12:54)
[2017-09-14] MEDS: NovoLOG Insulin Flexpen SUBQ SCH ×4 (06:48→18:00)
[2017-09-14] MEDS ORDERED: Acetaminophen 650mg/20.3ml GT PRN (08:15)
--- NOTE | 2017-09-14 08:53 | Pre-Procedure Note/Attestation ---
Pre-Procedure Note/Attestation Complete Prior to Procedure Planned Procedure: not applicable Procedure Narrative: egd Indications for Procedure Pre-Operative Diagnosis: gib Attestation I attest that I discussed the nature of the procedure; its benefits; risks and complications; and alternatives (and the risks and benefits of such alternatives ), prior to the procedure, with the patient (or the patient's legal employee relations representative). I attest that, if there was a reasonable possibility of needing a blood transfusion, the patient (or the patient's legal employee relations representative) was given the [facility] standardized written summary, pursuant to the Valente Tony Blood Safety Act ([place] Health and Safety Code # 1645, as amended). I attest that I re-evaluated the patient just prior to the surgery and that there has been no change in the patient's H&P, except as documented below: STEPHANIE RICK Sep 14, 2017 08:53
--- NOTE | 2017-09-14 08:54 | General Progress Note ---
Assessment/Plan Problem List: (1) Upper GI bleed ICD Codes: K92.2 - Gastrointestinal hemorrhage, unspecified SNOMED: 31223747 (2) DM (3) Feeding by G-tube ICD Codes: Z93.1 - Gastrostomy status SNOMED: 958203710, 255133257 (4) Parkinson disease ICD Codes: G20 - Parkinson's disease SNOMED: 66589631 Assessment/Plan plan EGD today Subjective ROS Limited/Unobtainable: No Allergies: Coded Allergies: CLINDAMYCIN (Verified Allergy, Unknown, 08/11/17) IODINE (Verified Allergy, Unknown, 08/11/17) LATEX (Verified Allergy, Unknown, 08/11/17) LEVOFLOXACIN (Verified Allergy, Unknown, rash, 08/11/17) PENICILLINS (Verified Allergy, Unknown, 08/11/17) QUETIAPINE (Verified Allergy, Unknown, 08/11/17) SULFA (SULFONAMIDE ANTIBIOTICS) (Unverified Allergy, Unknown, 08/11/17) TETANUS VACCINES AND TOXOID (Unverified Allergy, Unknown, 08/11/17) Uncoded Allergies: FISH (Allergy, Unknown, 08/11/17) TAPE ADHERENT (Allergy, Unknown, 08/11/17) Objective Last 24 Hour Vital Signs Date Time Temp Pulse Resp B/P (MAP) Pulse Ox O2 Delivery O2 Flow Rate FiO2 09/14/17 08:15 76 119/62 09/14/17 06:48 123/54 09/14/17 04:27 82 09/14/17 04:24 99.0 79 20 100/44 97 Nasal Cannula 2.0 99.0 09/14/17 01:08 98.1 80 20 112/64 95 Room Air 98.1 09/14/17 00:51 98.1 80 20 89/51 95 Room Air 98.1 09/14/17 00:23 89 09/13/17 21:42 97.7 80 20 96/55 96 Room Air 97.7 09/13/17 19:38 73 09/13/17 15:33 70 09/13/17 12:50 99.2 69 19 95/32 96 Room Air 99.2 09/13/17 12:31 69 19 95/32 96 Room Air 09/13/17 12:04 99.2 09/13/17 11:51 72 19 131/103 96 Room Air 09/13/17 11:34 99.2 09/13/17 09:57 99.2 81 21 181/80 93 Room Air 99.2 09/13/17 09:44 99.2 84 16 181/80 93 Room Air 99.1 Intake and Output 09/13/17 09/14/17 19:00 07:00 Intake Total 1000 ml 975 ml Balance 1000 ml 975 ml Intake Oral 0 ml IV Total 1000 ml 975 ml # Voids 2 2 Laboratory Tests 09/13/17 10:45: White Blood Count 8.4, Red Blood Count 3.73L, Hemoglobin 11.4L, Hematocrit 34.5L , Mean Corpuscular Volume 93, Mean Corpuscular Hemoglobin 30.5, Mean Corpuscular Hemoglobin Concent 32.9, Red Cell Distribution Width 12.4, Platelet Count 262, Mean Platelet Volume 7.5, Neutrophils (%) (Auto) 68.6, Lymphocytes (% ) (Auto) 16.7L, Monocytes (%) (Auto) 8.5, Eosinophils (%) (Auto) 5.1H, Basophils (%) (Auto) 1.1, Prothrombin Time 9.6, Prothromb Time International Ratio 0.9, Activated Partial Thromboplast Time 25, Urine Color Pale yellow, Urine Appearance Clear, Urine pH 8, Urine Specific [place] 1.010, Urine Protein Negative, Urine Glucose (UA) Negative, Urine Ketones Negative, Urine Occult Blood Negative, Urine Nitrite Negative, Urine Bilirubin Negative, Urine Urobilinogen 8H, Urine Leukocyte Esterase 1+H, Urine RBC 0-2, Urine WBC 0-2, Urine Squamous Epithelial Cells Few, Urine Amorphous Sediment FewH, Urine Bacteria Occasional, Sodium Level 139, Potassium Level 4.9, Chloride Level 104, Carbon Dioxide Level 33H, Anion Gap 2L, Blood Urea Nitrogen 28H, Creatinine 0.7 , Estimat Glomerular Filtration Rate , Glucose Level 145H, Calcium Level 9.4, Total Bilirubin 0.5, Aspartate Amino Transf (AST/SGOT) 39H, Alanine Aminotransferase (ALT/SGPT) 39, Alkaline Phosphatase 56, Troponin I 0.000, Total Protein 6.3L, Albumin 2.5L, Globulin 3.8, Albumin/Globulin Ratio 0.7L, Lipase 125 Height (Feet): 5 Height (Inches): 4.00 Weight (Pounds): 135 General Appearance: no apparent distress EENT: normal ENT inspection Neck: supple Cardiovascular: normal rate Respiratory/Chest: decreased breath sounds Abdomen: normal bowel sounds, non tender, soft Extremities: non-tender STEPHANIE RICK Sep 14, 2017 08:54
[2017-09-14 08:56] LABS: BASOPHILS % (AUTO) 1.1 % (0.0-2.0); HEMATOCRIT 27.2 % (37.0-47.0); HEMOGLOBIN 8.9 G/DL (12.0-16.0); LYMPHOCYTES % (AUTO) 16.6 % (20.0-45.0); MEAN CORPUSCULAR VOLUME 94 FL (80-99); MONOCYTES % (AUTO) 10.5 % (1.0-10.0); NEUTROPHILS % (AUTO) 66.9 % (45.0-75.0); PLATELET COUNT 189 K/UL (150-450); RED BLOOD COUNT 2.91 M/UL (4.20-5.40); RED CELL DISTRIBUTION WIDTH 12.2 % (11.6-14.8)
[2017-09-14 09:25] LABS: ANION GAP 5 mmol/L (5-15); BLOOD UREA NITROGEN 20 mg/dL (7-18); CARBON DIOXIDE 25 MMOL/L (21-32); CHLORIDE 108 MMOL/L (98-107); CREATININE 0.6 MG/DL (0.55-1.30); POTASSIUM 4.2 MMOL/L (3.5-5.1); SODIUM 138 MMOL/L (136-145)
[2017-09-14] MEDS ORDERED: Lidocaine 1% MPF 10mg/ml 5ml ONE (10:30)
[2017-09-14] MEDS ORDERED: NS 500ML IV ONE (10:30)
[2017-09-14] MEDS ORDERED: Propofol 200mg/20ml IV ONE (10:30)
--- NOTE | 2017-09-14 10:39 | Infectious Diseases Prog Note ---
Assessment/Plan Assessment/Plan ASSESSMENT: The patient is a 76-year-old female with; Upper GI bleed, no evidence of aspiration. chest x-ray: [facility] , no cough. Afebrile Normal white blood cells. Urine cultures growing ESBL E. coli;: colonization. No symptoms Candidiasis at the G-tube site. 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 Parkinson disease. History of atrial fibrillation. Hypertension. Asthma. History of GI bleed in the past. History of appendectomy. Diabetes. Anemia. PLAN: will monitor the patient off of IV antibiotics. Clotrimazole b.i.d. to be applied to this site. Monitor chest x-ray. Monitor CBC and BMP. Subjective Constitutional: Denies: no symptoms, fever, chills, fatigue, anorexia, drenching sweats, other Allergies: Coded Allergies: CLINDAMYCIN (Verified Allergy, Unknown, 08/11/17) IODINE (Verified Allergy, Unknown, 08/11/17) LATEX (Verified Allergy, Unknown, 08/11/17) LEVOFLOXACIN (Verified Allergy, Unknown, rash, 08/11/17) PENICILLINS (Verified Allergy, Unknown, 08/11/17) QUETIAPINE (Verified Allergy, Unknown, 08/11/17) SULFA (SULFONAMIDE ANTIBIOTICS) (Unverified Allergy, Unknown, 08/11/17) TETANUS VACCINES AND TOXOID (Unverified Allergy, Unknown, 08/11/17) Uncoded Allergies: FISH (Allergy, Unknown, 08/11/17) TAPE ADHERENT (Allergy, Unknown, 08/11/17) Objective Vital Signs Last 24 Hour Vital Signs Date Time Temp Pulse Resp B/P (MAP) Pulse Ox O2 Delivery O2 Flow Rate FiO2 09/14/17 08:15 76 119/62 09/14/17 08:00 97.7 76 20 110/67 99 Nasal Cannula 2.0 97.7 09/14/17 06:48 123/54 09/14/17 04:27 82 09/14/17 04:24 99.0 79 20 100/44 97 Nasal Cannula 2.0 99.0 09/14/17 01:08 98.1 80 20 112/64 95 Room Air 98.1 09/14/17 00:51 98.1 80 20 89/51 95 Room Air 98.1 09/14/17 00:23 89 09/13/17 21:42 97.7 80 20 96/55 96 Room Air 97.7 09/13/17 19:38 73 09/13/17 15:33 70 09/13/17 12:50 99.2 69 19 95/32 96 Room Air 99.2 09/13/17 12:31 69 19 95/32 96 Room Air 09/13/17 12:04 99.2 09/13/17 11:51 72 19 131/103 96 Room Air 09/13/17 11:34 99.2 Height (Feet): 5 Height (Inches): 4.00 Weight (Pounds): 135 HEENT: mucous membranes moist Respiratory/Chest: normal breath sounds Cardiovascular: normal rate Abdomen: soft, non tender Laboratory Tests Test 09/13/17 10:45 09/14/17 08:00 White Blood Count 8.4 K/UL (4.8-10.8) 7.0 K/UL (4.8-10.8) Red Blood Count 3.73 M/UL (4.20-5.40) L 2.91 M/UL (4.20-5.40) L Hemoglobin 11.4 G/DL (12.0-16.0) L 8.9 G/DL (12.0-16.0) L Hematocrit 34.5 % (37.0-47.0) L 27.2 % (37.0-47.0) L Mean Corpuscular Volume 93 FL (80-99) 94 FL (80-99) Mean Corpuscular Hemoglobin 30.5 PG (27.0-31.0) 30.7 PG (27.0-31.0) Mean Corpuscular Hemoglobin Concent 32.9 G/DL (32.0-36.0) 32.8 G/DL (32.0-36.0) Red Cell Distribution Width 12.4 % (11.6-14.8) 12.2 % (11.6-14.8) Platelet Count 262 K/UL (150-450) 189 K/UL (150-450) Mean Platelet Volume 7.5 FL (6.5-10.1) 6.9 FL (6.5-10.1) Neutrophils (%) (Auto) 68.6 % (45.0-75.0) 66.9 % (45.0-75.0) Lymphocytes (%) (Auto) 16.7 % (20.0-45.0) L 16.6 % (20.0-45.0) L Monocytes (%) (Auto) 8.5 % (1.0-10.0) 10.5 % (1.0-10.0) H Eosinophils (%) (Auto) 5.1 % (0.0-3.0) H 5.0 % (0.0-3.0) H Basophils (%) (Auto) 1.1 % (0.0-2.0) 1.1 % (0.0-2.0) Prothrombin Time 9.6 SEC (9.30-11.50) Prothromb Time International Ratio 0.9 (0.9-1.1) Activated Partial Thromboplast Time 25 SEC (23-33) Urine Color Pale yellow Urine Appearance Clear Urine pH 8 (4.5-8.0) Urine Specific [place] 1.010 (1.005-1.035) Urine Protein Negative (NEGATIVE) Urine Glucose (UA) Negative (NEGATIVE) Urine Ketones Negative (NEGATIVE) Urine Occult Blood Negative (NEGATIVE) Urine Nitrite Negative (NEGATIVE) Urine Bilirubin Negative (NEGATIVE) Urine Urobilinogen 8 MG/DL (0.0-1.0) H Urine Leukocyte Esterase 1+ (NEGATIVE) H Urine RBC 0-2 /HPF (0 - 2) Urine WBC 0-2 /HPF (0 - 2) Urine Squamous Epithelial Cells Few /LPF (NONE/OCC) Urine Amorphous Sediment Few /LPF (NONE) H Urine Bacteria Occasional /HPF (NONE) Sodium Level 139 MMOL/L (136-145) 138 MMOL/L (136-145) Potassium Level 4.9 MMOL/L (3.5-5.1) 4.2 MMOL/L (3.5-5.1) Chloride Level 104 MMOL/L (98-107) 108 MMOL/L (98-107) H Carbon Dioxide Level 33 MMOL/L (21-32) H 25 MMOL/L (21-32) Anion Gap 2 mmol/L (5-15) L 5 mmol/L (5-15) Blood Urea Nitrogen 28 mg/dL (7-18) H 20 mg/dL (7-18) H Creatinine 0.7 MG/DL (0.55-1.30) 0.6 MG/DL (0.55-1.30) Estimat Glomerular Filtration Rate mL/min (>60) mL/min (>60) Glucose Level 145 MG/DL (74-106) H 85 MG/DL (74-106) Calcium Level 9.4 MG/DL (8.5-10.1) 8.0 MG/DL (8.5-10.1) L Total Bilirubin 0.5 MG/DL (0.2-1.0) Aspartate Amino Transf (AST/SGOT) 39 U/L (15-37) H Alanine Aminotransferase (ALT/SGPT) 39 U/L (12-78) Alkaline Phosphatase 56 U/L (46-116) Troponin I 0.000 ng/mL (0.000-0.056) Total Protein 6.3 G/DL (6.4-8.2) L Albumin 2.5 G/DL (3.4-5.0) L Globulin 3.8 g/dL Albumin/Globulin Ratio 0.7 (1.0-2.7) L Lipase 125 U/L (73-393) Current Medications Medications (Trade) Dose Ordered Sig/Alice Route PRN Reason Start Time Stop Time Status Last Admin Dose Admin Acetaminophen (Tylenol) 650 mg Q4H PRN GT Mild Pain/Temp > 100.5 09/14/17 08:15 10/14/17 08:14 Al Hydroxide/Mg Hydroxide (Mylanta) 15 ml Q1H PRN ORAL gi upset 09/14/17 06:00 09/14/17 16:00 Alprazolam (Xanax) 1 mg Q6H PRN ORAL For Anxiety 09/13/17 16:00 09/20/17 15:59 09/13/17 18:08 Atenolol (Tenormin) 50 mg DAILY ORAL 09/14/17 09:00 10/14/17 08:59 09/14/17 08:15 Atropine Sulfate (Atropine) 0.5 mg Q5M PRN IV bpm less than 45 09/14/17 06:00 09/14/17 16:00 Cilostazol (Pletal) 100 mg DAILY GT 09/14/17 09:00 10/14/17 08:59 Clotrimazole (Lotrimin) 1 applic BID TOPIC 09/13/17 18:00 10/13/17 17:59 09/13/17 18:08 Dextrose (Dextrose 50%) 25 ml STAT PRN IV BS 60-69mg/dl 09/13/17 16:00 10/13/17 15:59 Dextrose (Dextrose 50%) 50 ml STAT PRN IV Hypoglycemia 09/13/17 16:15 10/13/17 15:59 Diphenhydramine HCl (Benadryl) 25 mg Q15M PRN IVP Itching 09/14/17 06:00 09/14/17 16:00 Escitalopram Oxalate (Lexapro) 20 mg DAILY ORAL 09/14/17 09:00 10/14/17 08:59 Fentanyl Citrate (Sublimaze 100 mcg/2 mL) 25 mcg Q10M PRN IV Moderate Pain (Pain Scale 4-6) 09/14/17 06:00 09/14/17 16:00 Hydralazine HCl (Apresoline) 5 mg Q30M PRN IV SBP>160 OR___/DBP>90 OR___ 09/14/17 06:00 09/14/17 16:00 Insulin Aspart (NovoLOG) Q6HR SUBQ 09/13/17 18:00 10/13/17 17:59 Levothyroxine Sodium (Synthroid) 50 mcg ACBREAKFAST ORAL 09/14/17 06:30 10/14/17 06:29 09/14/17 06:45 Metformin HCl (Glucophage) 500 mg DAILY ORAL 09/14/17 09:00 10/14/17 08:59 Midazolam HCl (Versed 2mg/2ml vial) 1 mg Q15M PRN IVP For Anxiety 09/14/17 06:00 09/14/17 16:00 Ondansetron HCl (Zofran) 4 mg Q1H PRN IVP Nausea & Vomiting 09/14/17 06:00 09/14/17 16:00 Pantoprazole (Protonix) 40 mg EVERY 12 HOURS IVP 09/13/17 21:00 10/13/17 20:59 09/13/17 21:31 Patient Own Medication (Patient's Own Med) 1 ea QHS NG 09/14/17 21:00 10/14/17 20:59 UNV Sodium Chloride 1,000 ml @ 75 mls/hr [id number] IV 09/13/17 16:00 10/13/17 15:59 09/14/17 05:42 Trazodone HCl (Desyrel) 100 mg HSPRN PRN GT Insomnia 09/13/17 21:00 10/13/17 20:59 09/14/17 02:01 Jamie Lopez MD Sep 14, 2017 10:39
--- NOTE | 2017-09-14 11:02 | Endoscopy Procedure Note ---
Endoscopy Procedure Note General Indication for Procedure: dysphagia GIB Procedures Performed: EGD Operative Findings/Diagnosis: anestemosis stricture, esophagitis Specimen: none Pt Tolerated Procedure Well: Yes Estimated Blood Loss: none Anesthesia Anesthesiologist: chavo Anesthesia: MAC Inserted Devices Implant(s) used?: No GI Core Measures 50 yrs or older w/o bx or poly: Not Applicable 10yrs. F/U not recommended: Not Applicable STEPHANIE RICK Sep 14, 2017 11:01
--- NOTE | 2017-09-14 12:25 | Diagnostic Imaging Report ---
Indication: Gastrostomy tube replacement. Technique: XRAY Abdomen 1v Comparison: 08/13/2017 Findings: Gastrostomy tube projects over the right upper quadrant. There is injection of contrast via the tube, which opacifies the stomach. Contrast also opacifies the small bowel. No extraluminal spillage of contrast is seen. Bowel gas pattern is nonobstructive. There is osteopenia and degenerative change of the spine. Multiple surgical clips again noted in the abdomen. IMPRESSION: Gastrostomy tube in the stomach. No extraluminal seepage of contrast identified.
--- NOTE | 2017-09-14 12:46 | Cardiology Report ---
APPROVED REPORT EKG Measurement Heart [id number] Normal sinus rhythm Normal ECG
[2017-09-14] MEDS: Cilostazol 100mg tab GT SCH (12:54)
[2017-09-14] MEDS: metFORMIN 500mg tab ORAL SCH (12:54)
[2017-09-14] MEDS: Pantoprazole Inj IVP SCH ×2 (12:54→20:46)
--- NOTE | 2017-09-14 13:01 | General Progress Note ---
Assessment/Plan Problem List: (1) Anemia ICD Codes: D64.9 - Anemia, unspecified SNOMED: 853409575 (2) CVA (cerebral vascular accident) ICD Codes: I63.9 - Cerebral infarction, unspecified SNOMED: 971622268 (3) Parkinson disease ICD Codes: G20 - Parkinson's disease SNOMED: 90738241 (4) Upper GI bleed ICD Codes: K92.2 - Gastrointestinal hemorrhage, unspecified SNOMED: 73099180 (5) Feeding by G-tube ICD Codes: Z93.1 - Gastrostomy status SNOMED: 180080680, 126821528 (6) DM Status: unchanged Assessment/Plan ot pt diet gi f/u cbc bmp am Subjective Constitutional: Reports: weakness Allergies: Coded Allergies: CLINDAMYCIN (Verified Allergy, Unknown, 08/11/17) IODINE (Verified Allergy, Unknown, 08/11/17) LATEX (Verified Allergy, Unknown, 08/11/17) LEVOFLOXACIN (Verified Allergy, Unknown, rash, 08/11/17) PENICILLINS (Verified Allergy, Unknown, 08/11/17) QUETIAPINE (Verified Allergy, Unknown, 08/11/17) SULFA (SULFONAMIDE ANTIBIOTICS) (Unverified Allergy, Unknown, 08/11/17) TETANUS VACCINES AND TOXOID (Unverified Allergy, Unknown, 08/11/17) Uncoded Allergies: FISH (Allergy, Unknown, 08/11/17) TAPE ADHERENT (Allergy, Unknown, 08/11/17) All Systems: reviewed and negative except above Subjective s/p egd sleepy Objective Last 24 Hour Vital Signs Date Time Temp Pulse Resp B/P (MAP) Pulse Ox O2 Delivery O2 Flow Rate FiO2 09/14/17 12:55 77 138/83 09/14/17 11:30 98.0 82 26 152/70 95 Nasal Cannula 3.0 98.0 09/14/17 11:15 80 23 148/64 95 Nasal Cannula 3.0 09/14/17 11:10 83 24 153/71 95 Simple Mask 6.0 09/14/17 11:05 98.9 83 20 145/62 96 Simple Mask 6.0 98.9 09/14/17 08:15 76 119/62 09/14/17 08:00 97.7 76 20 110/67 99 Nasal Cannula 2.0 97.7 09/14/17 06:48 123/54 09/14/17 04:27 82 09/14/17 04:24 99.0 79 20 100/44 97 Nasal Cannula 2.0 99.0 09/14/17 01:08 98.1 80 20 112/64 95 Room Air 98.1 09/14/17 00:51 98.1 80 20 89/51 95 Room Air 98.1 09/14/17 00:23 89 09/13/17 21:42 97.7 80 20 96/55 96 Room Air 97.7 09/13/17 19:38 73 09/13/17 15:33 70 Intake and Output 09/13/17 09/14/17 19:00 07:00 Intake Total 1000 ml 975 ml Balance 1000 ml 975 ml Intake Oral 0 ml IV Total 1000 ml 975 ml # Voids 2 2 Laboratory Tests 09/14/17 08:00: White Blood Count 7.0, Red Blood Count 2.91L, Hemoglobin 8.9L, Hematocrit 27.2L , Mean Corpuscular Volume 94, Mean Corpuscular Hemoglobin 30.7, Mean Corpuscular Hemoglobin Concent 32.8, Red Cell Distribution Width 12.2, Platelet Count 189, Mean Platelet Volume 6.9, Neutrophils (%) (Auto) 66.9, Lymphocytes (% ) (Auto) 16.6L, Monocytes (%) (Auto) 10.5H, Eosinophils (%) (Auto) 5.0H, Basophils (%) (Auto) 1.1, Sodium Level 138, Potassium Level 4.2, Chloride Level 108H, Carbon Dioxide Level 25, Anion Gap 5, Blood Urea Nitrogen 20H, Creatinine 0.6, Estimat Glomerular Filtration Rate , Glucose Level 85, Calcium Level 8.0L Height (Feet): 5 Height (Inches): 4.00 Weight (Pounds): 135 General Appearance: lethargic EENT: normal ENT inspection Neck: normal alignment Cardiovascular: normal peripheral pulses, normal rate, regular rhythm Respiratory/Chest: chest wall non-tender, lungs clear, normal breath sounds Abdomen: normal bowel sounds, non tender, soft Extremities: normal inspection Edema: no edema noted Arm (L), no edema noted Arm (R), no edema noted Leg (L), no edema noted Leg (R), no edema noted Pedal (L), no edema noted Pedal (R), no edema noted Generalized Neurologic: motor weakness Skin: normal pigmentation, warm/dry BREN FLOWERS Sep 14, 2017 13:01
--- NOTE | 2017-09-14 13:15 | Immediate Post-Op Evaluation ---
Immediate Post-Op Evalulation Immediate Post-Op Evalulation Procedure: egd w/ feeding tube exchange Date of Evaluation: Sep 14, 2017 Time of Evaluation: 11:17 IV Fluids: 150ml 0.9ns Blood Products: none Estimated Blood Loss: neglgigible Blood Pressure Systolic: 158 Blood Pressure Diastolic: 73 Pulse Rate: 78 Respiratory Rate: 18 O2 Sat by Pulse Oximetry: 99 Temperature (Fahrenheit): 98.9 Pain Score (1-10): 0 Nausea: No Vomiting: No Complications none Patient Status: awake, reacts, patent Hydration Status: adequate Drug: IRCO Beal Sep 14, 2017 13:15
--- NOTE | 2017-09-14 13:17 | 48 Hour Post Anesthesia Eval ---
Post Anesthesia Evaluation Procedure: egd w/ feeding tube exchange Date of Evaluation: Sep 14, 2017 Time of Evaluation: 11:19 Blood Pressure Systolic: 148 0: 64 Pulse Rate: 80 Respiratory Rate: 18 Temperature (Fahrenheit): 98.9 O2 Sat by Pulse Oximetry: 99 Airway: patent Nausea: No Vomiting: No Pain Intensity: 0 Hydration Status: adequate Cardiopulmonary Status: stable Mental Status/LOC: patient returned to baseline Post-Anesthesia Complications: none Follow-up care needed: N/A RICO GRIER Sep 14, 2017 13:17
[2017-09-14] MEDS: NEUPRO 2 MG/24 HR ORAL SCH (15:36)
[2017-09-14] MEDS: NEUPRO 8 MG/24 HR ORAL SCH (15:36)
[2017-09-14] MEDS ORDERED: NEUPRO 8 MG/24 HR ORAL SCH (16:00)
[2017-09-14] MEDS ORDERED: NEUPRO 2 MG/24 HR ORAL SCH (16:00)
--- NOTE | 2017-09-14 18:45 | Procedure Note ---
DATE OF PROCEDURE: 09/14/2017 SURGEON: Pastor Pedraza M.D. REFERRING PHYSICIAN: Thang Tom D.O. PROCEDURE: Upper endoscopy with scope-induced dilation. ANESTHESIA: Per Dr. Gilliland. INSTRUMENT: Olympus adult flexible upper endoscope. INDICATION: Upper GI bleeding. This is a 76-year-old female with past medical history of gastric bypass surgery, dysphagia, had evidence of coffee-ground emesis. The procedure, risks, benefits, and possible consequences, including hemorrhage, aspiration, perforation and infection, and alternative treatments, were explained to the patient/legal guardian by Dr. Pastor Pedraza and the patient/legal guardian understood and accepted these risks. DESCRIPTION OF PROCEDURE: After informed consent was obtained and the patient was adequately sedated, Olympus upper endoscope was advanced from the mouth into the esophagus. The patient had severe erosive distal esophagitis. Then, we entered the gastric pouch. Gastric pouch was in a medium size. There was a little bit hole in the gastric pouch. We then noticed this is the G-tube site and the balloon is under the skin anastomosis. We deflated the balloon, removed it, tried to use a wire to push through the same hole, we could not get through. Then, I realized this is most probably an anastomosis and the G-tube was not placed in the pouch and G-tube most probably was placed in the small intestine or somewhere else. So, we put another G-tube back in, 20-[place], through the same hole, inflated with 3 mL of water. Then, we were able to force the scope and dilated with the scope through the anastomosis and get into the small intestine. So, we confirmed that this opening and the gastric pouch was actually an anastomosis. At this time, the scope was retrieved and procedure was terminated. SUMMARY OF FINDINGS: 1. 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 2. Severe distal esophagitis. 3. Status post replacement of the gastrostomy tube. RECOMMENDATIONS: We are going to order a KUB with contrast through the G-tube to make sure this is in the right place. Continue on Protonix twice a day. The patient is pending to get a swallow evaluation. We will follow. I want to thank Dr. Thang Tom for this kind referral. Pastor Pedraza M.D. DR: AMANDA JOB#: [id number] CC: Thang Tom D.O.
[2017-09-14] MEDS: CRESTOR 10 MG NG SCH (20:46)
[2017-09-15] VITALS: BP 120/74
[2017-09-15] MEDS: TraZODone 100mg tab GT PRN (00:30)
[2017-09-15 04:00] VITALS: BP 103/69
[2017-09-15] MEDS: NovoLOG Insulin Flexpen SUBQ SCH ×4 (06:00→18:00)
[2017-09-15 08:00] VITALS: BP 123/63
[2017-09-15] MEDS: Cilostazol 100mg tab GT SCH (09:00)
[2017-09-15 09:08] LABS: BASOPHILS % (AUTO) 0.4 % (0.0-2.0); EOSINOPHILS % (AUTO) 3.6 % (0.0-3.0); HEMOGLOBIN 10.7 G/DL (12.0-16.0); MEAN CORPUSCULAR VOLUME 92 FL (80-99); PLATELET COUNT 203 K/UL (150-450); RED CELL DISTRIBUTION WIDTH 11.9 % (11.6-14.8); WHITE BLOOD COUNT 8.9 K/UL (4.8-10.8)
[2017-09-15] MEDS: metFORMIN 500mg tab ORAL SCH (09:12)
[2017-09-15] MEDS: Pantoprazole Inj IVP SCH ×2 (09:19→20:58)
[2017-09-15 09:27] LABS: ANION GAP 5 mmol/L (5-15); BLOOD UREA NITROGEN 15 mg/dL (7-18); CALCIUM 7.8 MG/DL (8.5-10.1); CARBON DIOXIDE 26 MMOL/L (21-32); CHLORIDE 107 MMOL/L (98-107); CREATININE 0.5 MG/DL (0.55-1.30); POTASSIUM 4.2 MMOL/L (3.5-5.1); SODIUM 138 MMOL/L (136-145)
--- NOTE | 2017-09-15 11:24 | General Progress Note ---
Assessment/Plan Problem List: (1) Upper GI bleed ICD Codes: K92.2 - Gastrointestinal hemorrhage, unspecified SNOMED: 57650016 (2) DM (3) Feeding by G-tube ICD Codes: Z93.1 - Gastrostomy status SNOMED: 455020902, 283255608 (4) Parkinson disease ICD Codes: G20 - Parkinson's disease SNOMED: 10063405 Assessment/Plan GTF pending video swallow eval repeat cbc ppi d/w and the point of care technician Subjective ROS Limited/Unobtainable: No Allergies: Coded Allergies: CLINDAMYCIN (Verified Allergy, Unknown, 08/11/17) IODINE (Verified Allergy, Unknown, 08/11/17) LATEX (Verified Allergy, Unknown, 08/11/17) LEVOFLOXACIN (Verified Allergy, Unknown, rash, 08/11/17) PENICILLINS (Verified Allergy, Unknown, 08/11/17) QUETIAPINE (Verified Allergy, Unknown, 08/11/17) SULFA (SULFONAMIDE ANTIBIOTICS) (Unverified Allergy, Unknown, 08/11/17) TETANUS VACCINES AND TOXOID (Unverified Allergy, Unknown, 08/11/17) Uncoded Allergies: FISH (Allergy, Unknown, 08/11/17) TAPE ADHERENT (Allergy, Unknown, 08/11/17) Subjective per point of care technician black stools Objective Last 24 Hour Vital Signs Date Time Temp Pulse Resp B/P (MAP) Pulse Ox O2 Delivery O2 Flow Rate FiO2 09/15/17 08:00 97.5 81 17 123/63 9 Nasal Cannula 3.0 97.5 09/15/17 08:00 82 09/15/17 04:00 98.0 81 22 103/69 95 Nasal Cannula 3.0 98.0 09/15/17 04:00 83 09/15/17 00:00 81 09/15/17 00:00 98.1 79 21 120/74 97 Nasal Cannula 3.0 98.1 09/14/17 20:04 97.2 80 21 120/74 97 Nasal Cannula 3.0 97.2 09/14/17 20:00 76 09/14/17 16:00 77 09/14/17 16:00 97.7 77 18 125/73 95 Nasal Cannula 3.0 97.7 09/14/17 13:17 210.0 80 18 99 09/14/17 13:15 210.0 78 18 99 09/14/17 12:55 77 138/83 09/14/17 12:00 79 09/14/17 11:30 98.0 82 26 152/70 95 Nasal Cannula 3.0 98.0 Intake and Output 09/14/17 09/15/17 19:00 07:00 Intake Total 291 ml 1270 ml Balance 291 ml 1270 ml Free Water 150 ml IV Total 275 ml 900 ml Tube Feeding 16 ml 220 ml # Voids 4 Laboratory Tests 09/15/17 07:35: White Blood Count 8.9, Red Blood Count 3.50L, Hemoglobin 10.7L, Hematocrit 32.0L , Mean Corpuscular Volume 92, Mean Corpuscular Hemoglobin 30.7, Mean Corpuscular Hemoglobin Concent 33.5, Red Cell Distribution Width 11.9, Platelet Count 203, Mean Platelet Volume 7.1, Neutrophils (%) (Auto) 81.0H, Lymphocytes ( %) (Auto) 8.0L, Monocytes (%) (Auto) 7.0, Eosinophils (%) (Auto) 3.6H, Basophils (%) (Auto) 0.4, Sodium Level 138, Potassium Level 4.2, Chloride Level 107, Carbon Dioxide Level 26, Anion Gap 5, Blood Urea Nitrogen 15, Creatinine 0.5L, Estimat Glomerular Filtration Rate , Glucose Level 90, Calcium Level 7.8L Height (Feet): 5 Height (Inches): 4.00 Weight (Pounds): 135 General Appearance: no apparent distress EENT: normal ENT inspection Neck: supple Cardiovascular: normal rate Respiratory/Chest: decreased breath sounds Abdomen: normal bowel sounds, non tender, soft Extremities: non-tender STEPHANIE RICK Sep 15, 2017 11:24
[2017-09-15 12:00] VITALS: BP 117/58
--- NOTE | 2017-09-15 12:54 | General Progress Note ---
Assessment/Plan Problem List: (1) Anemia ICD Codes: D64.9 - Anemia, unspecified SNOMED: 977134376 (2) CVA (cerebral vascular accident) ICD Codes: I63.9 - Cerebral infarction, unspecified SNOMED: 004089289 (3) Parkinson disease ICD Codes: G20 - Parkinson's disease SNOMED: 85739203 (4) Upper GI bleed ICD Codes: K92.2 - Gastrointestinal hemorrhage, unspecified SNOMED: 91199747 (5) Feeding by G-tube ICD Codes: Z93.1 - Gastrostomy status SNOMED: 217720864, 906771915 (6) DM Status: unchanged Assessment/Plan ot pt diet gi f/u cbc bmp am dc plan Subjective Constitutional: Reports: weakness Allergies: Coded Allergies: CLINDAMYCIN (Verified Allergy, Unknown, 08/11/17) IODINE (Verified Allergy, Unknown, 08/11/17) LATEX (Verified Allergy, Unknown, 08/11/17) LEVOFLOXACIN (Verified Allergy, Unknown, rash, 08/11/17) PENICILLINS (Verified Allergy, Unknown, 08/11/17) QUETIAPINE (Verified Allergy, Unknown, 08/11/17) SULFA (SULFONAMIDE ANTIBIOTICS) (Unverified Allergy, Unknown, 08/11/17) TETANUS VACCINES AND TOXOID (Unverified Allergy, Unknown, 08/11/17) Uncoded Allergies: FISH (Allergy, Unknown, 08/11/17) TAPE ADHERENT (Allergy, Unknown, 08/11/17) All Systems: reviewed and negative except above Subjective o2nc calm Objective Last 24 Hour Vital Signs Date Time Temp Pulse Resp B/P (MAP) Pulse Ox O2 Delivery O2 Flow Rate FiO2 09/15/17 08:00 97.5 81 17 123/63 9 Nasal Cannula 3.0 97.5 09/15/17 08:00 82 09/15/17 04:00 98.0 81 22 103/69 95 Nasal Cannula 3.0 98.0 09/15/17 04:00 83 09/15/17 00:00 81 09/15/17 00:00 98.1 79 21 120/74 97 Nasal Cannula 3.0 98.1 09/14/17 20:04 97.2 80 21 120/74 97 Nasal Cannula 3.0 97.2 09/14/17 20:00 76 09/14/17 16:00 77 09/14/17 16:00 97.7 77 18 125/73 95 Nasal Cannula 3.0 97.7 09/14/17 13:17 210.0 80 18 99 09/14/17 13:15 210.0 78 18 99 09/14/17 12:55 77 138/83 Intake and Output 09/14/17 09/15/17 19:00 07:00 Intake Total 291 ml 1366 ml Balance 291 ml 1366 ml Free Water 150 ml IV Total 275 ml 970 ml Tube Feeding 16 ml 246 ml # Voids 4 Laboratory Tests 09/15/17 07:35: White Blood Count 8.9, Red Blood Count 3.50L, Hemoglobin 10.7L, Hematocrit 32.0L , Mean Corpuscular Volume 92, Mean Corpuscular Hemoglobin 30.7, Mean Corpuscular Hemoglobin Concent 33.5, Red Cell Distribution Width 11.9, Platelet Count 203, Mean Platelet Volume 7.1, Neutrophils (%) (Auto) 81.0H, Lymphocytes ( %) (Auto) 8.0L, Monocytes (%) (Auto) 7.0, Eosinophils (%) (Auto) 3.6H, Basophils (%) (Auto) 0.4, Sodium Level 138, Potassium Level 4.2, Chloride Level 107, Carbon Dioxide Level 26, Anion Gap 5, Blood Urea Nitrogen 15, Creatinine 0.5L, Estimat Glomerular Filtration Rate , Glucose Level 90, Calcium Level 7.8L Height (Feet): 5 Height (Inches): 4.00 Weight (Pounds): 135 General Appearance: lethargic EENT: normal ENT inspection Neck: normal alignment Cardiovascular: normal peripheral pulses, normal rate, regular rhythm Respiratory/Chest: chest wall non-tender, lungs clear, normal breath sounds Abdomen: normal bowel sounds, non tender, soft Extremities: normal inspection Edema: no edema noted Arm (L), no edema noted Arm (R), no edema noted Leg (L), no edema noted Leg (R), no edema noted Pedal (L), no edema noted Pedal (R), no edema noted Generalized Neurologic: motor weakness Skin: normal pigmentation, warm/dry BREN FLOWERS Sep 15, 2017 12:54
[2017-09-15 13:28] LABS: BASOPHILS % (AUTO) 0.5 % (0.0-2.0); EOSINOPHILS % (AUTO) 5.2 % (0.0-3.0); HEMATOCRIT 31.1 % (37.0-47.0); HEMOGLOBIN 10.1 G/DL (12.0-16.0); LYMPHOCYTES % (AUTO) 9.3 % (20.0-45.0); MEAN CORPUSCULAR VOLUME 93 FL (80-99); MONOCYTES % (AUTO) 7.3 % (1.0-10.0); NEUTROPHILS % (AUTO) 77.8 % (45.0-75.0); PLATELET COUNT 204 K/UL (150-450); RED BLOOD COUNT 3.36 M/UL (4.20-5.40); WHITE BLOOD COUNT 8.8 K/UL (4.8-10.8)
[2017-09-15] MEDS: NEUPRO 8 MG/24 HR ORAL SCH (15:51)
[2017-09-15] MEDS: ALPRAZolam 0.5mg tab ORAL PRN (15:51)
[2017-09-15] MEDS: NEUPRO 2 MG/24 HR ORAL SCH (15:51)
[2017-09-15 16:00] VITALS: BP 106/60
--- NOTE | 2017-09-15 19:34 | Infectious Diseases Prog Note ---
Assessment/Plan Assessment/Plan ASSESSMENT: The patient is a 76-year-old female with; Upper GI bleed, no evidence of aspiration. chest x-ray: NAPD , no cough. Afebrile Normal white blood cells. Urine cultures growing ESBL E. coli;: colonization. No symptoms Candidiasis at the G-tube site. 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 Parkinson disease. History of atrial fibrillation. Hypertension. Asthma. History of GI bleed in the past. History of appendectomy. Diabetes. Anemia. PLAN: will monitor the patient off of IV antibiotics. Clotrimazole b.i.d. to be applied to GT site. Monitor chest x-ray. Monitor CBC and BMP. Subjective Constitutional: Denies: no symptoms, fever, chills, fatigue, anorexia, drenching sweats, other Allergies: Coded Allergies: CLINDAMYCIN (Verified Allergy, Unknown, 08/11/17) IODINE (Verified Allergy, Unknown, 08/11/17) LATEX (Verified Allergy, Unknown, 08/11/17) LEVOFLOXACIN (Verified Allergy, Unknown, rash, 08/11/17) PENICILLINS (Verified Allergy, Unknown, 08/11/17) QUETIAPINE (Verified Allergy, Unknown, 08/11/17) SULFA (SULFONAMIDE ANTIBIOTICS) (Unverified Allergy, Unknown, 08/11/17) TETANUS VACCINES AND TOXOID (Unverified Allergy, Unknown, 08/11/17) Uncoded Allergies: FISH (Allergy, Unknown, 08/11/17) TAPE ADHERENT (Allergy, Unknown, 08/11/17) Objective Vital Signs Last 24 Hour Vital Signs Date Time Temp Pulse Resp B/P (MAP) Pulse Ox O2 Delivery O2 Flow Rate FiO2 09/15/17 16:00 84 09/15/17 16:00 98.2 81 17 106/60 95 Nasal Cannula 3.0 98.2 09/15/17 12:00 82 09/15/17 12:00 97.7 80 19 117/58 95 Nasal Cannula 3.0 97.7 09/15/17 08:00 97.5 81 17 123/63 9 Nasal Cannula 3.0 97.5 09/15/17 08:00 82 09/15/17 04:00 98.0 81 22 103/69 95 Nasal Cannula 3.0 98.0 09/15/17 04:00 83 09/15/17 00:00 81 09/15/17 00:00 98.1 79 21 120/74 97 Nasal Cannula 3.0 98.1 09/14/17 20:04 97.2 80 21 120/74 97 Nasal Cannula 3.0 97.2 09/14/17 20:00 76 Height (Feet): 5 Height (Inches): 4.00 Weight (Pounds): 135 HEENT: anicteric Respiratory/Chest: normal breath sounds Cardiovascular: regular rhythm Abdomen: no organomegaly Laboratory Tests Test 09/15/17 07:35 09/15/17 13:00 White Blood Count 8.9 K/UL (4.8-10.8) 8.8 K/UL (4.8-10.8) Red Blood Count 3.50 M/UL (4.20-5.40) L 3.36 M/UL (4.20-5.40) L Hemoglobin 10.7 G/DL (12.0-16.0) L 10.1 G/DL (12.0-16.0) L Hematocrit 32.0 % (37.0-47.0) L 31.1 % (37.0-47.0) L Mean Corpuscular Volume 92 FL (80-99) 93 FL (80-99) Mean Corpuscular Hemoglobin 30.7 PG (27.0-31.0) 30.1 PG (27.0-31.0) Mean Corpuscular Hemoglobin Concent 33.5 G/DL (32.0-36.0) 32.4 G/DL (32.0-36.0) Red Cell Distribution Width 11.9 % (11.6-14.8) 12.0 % (11.6-14.8) Platelet Count 203 K/UL (150-450) 204 K/UL (150-450) Mean Platelet Volume 7.1 FL (6.5-10.1) 7.3 FL (6.5-10.1) Neutrophils (%) (Auto) 81.0 % (45.0-75.0) H 77.8 % (45.0-75.0) H Lymphocytes (%) (Auto) 8.0 % (20.0-45.0) L 9.3 % (20.0-45.0) L Monocytes (%) (Auto) 7.0 % (1.0-10.0) 7.3 % (1.0-10.0) Eosinophils (%) (Auto) 3.6 % (0.0-3.0) H 5.2 % (0.0-3.0) H Basophils (%) (Auto) 0.4 % (0.0-2.0) 0.5 % (0.0-2.0) Sodium Level 138 MMOL/L (136-145) Potassium Level 4.2 MMOL/L (3.5-5.1) Chloride Level 107 MMOL/L (98-107) Carbon Dioxide Level 26 MMOL/L (21-32) Anion Gap 5 mmol/L (5-15) Blood Urea Nitrogen 15 mg/dL (7-18) Creatinine 0.5 MG/DL (0.55-1.30) L Estimat Glomerular Filtration Rate mL/min (>60) Glucose Level 90 MG/DL (74-106) Calcium Level 7.8 MG/DL (8.5-10.1) L Current Medications Medications (Trade) Dose Ordered Sig/Alice Route PRN Reason Start Time Stop Time Status Last Admin Dose Admin Acetaminophen (Tylenol) 650 mg Q4H PRN GT Mild Pain/Temp > 100.5 09/14/17 08:15 10/14/17 08:14 Alprazolam (Xanax) 1 mg Q6H PRN ORAL For Anxiety 09/13/17 16:00 09/20/17 15:59 09/15/17 15:51 Atenolol (Tenormin) 50 mg DAILY ORAL 09/14/17 09:00 10/14/17 08:59 09/14/17 12:55 Cilostazol (Pletal) 100 mg DAILY GT 09/14/17 09:00 10/14/17 08:59 09/14/17 12:54 Clotrimazole (Lotrimin) 1 applic BID TOPIC 09/13/17 18:00 10/13/17 17:59 09/15/17 18:34 Dextrose (Dextrose 50%) 25 ml STAT PRN IV BS 60-69mg/dl 09/13/17 16:00 10/13/17 15:59 Dextrose (Dextrose 50%) 50 ml STAT PRN IV Hypoglycemia 09/13/17 16:15 10/13/17 15:59 Escitalopram Oxalate (Lexapro) 20 mg DAILY ORAL 09/14/17 09:00 10/14/17 08:59 09/15/17 09:12 Insulin Aspart (NovoLOG) Q6HR SUBQ 09/13/17 18:00 10/13/17 17:59 Levothyroxine Sodium (Synthroid) 50 mcg ACBREAKFAST ORAL 09/14/17 06:30 10/14/17 06:29 09/15/17 06:50 Metformin HCl (Glucophage) 500 mg DAILY ORAL 09/14/17 09:00 10/14/17 08:59 09/15/17 09:12 Pantoprazole (Protonix) 40 mg EVERY 12 HOURS IVP 09/13/17 21:00 10/13/17 20:59 09/15/17 09:19 Patient Own Medication (Patient's Own Med) 1 ea Q24H ORAL 09/14/17 16:00 10/14/17 15:59 09/15/17 15:51 Patient Own Medication (Patient's Own Med) 1 ea Q24H ORAL 09/14/17 16:00 10/14/17 15:59 09/15/17 15:51 Patient Own Medication (Patient's Own Med) 1 ea QHS NG 09/14/17 21:00 10/14/17 20:59 09/14/17 20:46 Sodium Chloride 1,000 ml @ 75 mls/hr [id number] IV 09/13/17 16:00 10/13/17 15:59 09/15/17 09:12 Trazodone HCl (Desyrel) 100 mg HSPRN PRN GT Insomnia 09/13/17 21:00 10/13/17 20:59 09/15/17 00:30 Jamie Lopez MD Sep 15, 2017 19:34
[2017-09-15 20:00] VITALS: BP 121/57
[2017-09-15] MEDS: CRESTOR 10 MG NG SCH (20:57)
[2017-09-16] VITALS: BP 101/48
[2017-09-16 04:00] VITALS: BP 118/50
[2017-09-16] MEDS: NovoLOG Insulin Flexpen SUBQ SCH ×5 (06:30→23:07)
[2017-09-16 08:00] VITALS: BP 111/65
[2017-09-16 08:50] LABS: BASOPHILS % (AUTO) 0.5 % (0.0-2.0); EOSINOPHILS % (AUTO) 4.3 % (0.0-3.0); HEMATOCRIT 28.1 % (37.0-47.0); HEMOGLOBIN 9.6 G/DL (12.0-16.0); LYMPHOCYTES % (AUTO) 19.3 % (20.0-45.0); MEAN CORPUSCULAR VOLUME 93 FL (80-99); MONOCYTES % (AUTO) 10.2 % (1.0-10.0); NEUTROPHILS % (AUTO) 65.7 % (45.0-75.0); PLATELET COUNT 207 K/UL (150-450); RED BLOOD COUNT 3.01 M/UL (4.20-5.40); RED CELL DISTRIBUTION WIDTH 12.1 % (11.6-14.8); WHITE BLOOD COUNT 5.5 K/UL (4.8-10.8)
[2017-09-16 08:56] LABS: ANION GAP 3 mmol/L (5-15); BLOOD UREA NITROGEN 12 mg/dL (7-18); CALCIUM 7.1 MG/DL (8.5-10.1); CARBON DIOXIDE 26 MMOL/L (21-32); CHLORIDE 109 MMOL/L (98-107); CREATININE 0.5 MG/DL (0.55-1.30); SODIUM 138 MMOL/L (136-145)
[2017-09-16] MEDS: Cilostazol 100mg tab GT SCH (09:00)
[2017-09-16] MEDS: Pantoprazole Inj IVP SCH ×2 (09:00→20:59)
[2017-09-16] MEDS: metFORMIN 500mg tab ORAL SCH (09:47)
--- NOTE | 2017-09-16 10:00 | General Progress Note ---
Assessment/Plan Problem List: (1) Anemia ICD Codes: D64.9 - Anemia, unspecified SNOMED: 607010107 (2) CVA (cerebral vascular accident) ICD Codes: I63.9 - Cerebral infarction, unspecified SNOMED: 699995034 (3) Parkinson disease ICD Codes: G20 - Parkinson's disease SNOMED: 60252625 (4) Upper GI bleed ICD Codes: K92.2 - Gastrointestinal hemorrhage, unspecified SNOMED: 55598400 (5) Feeding by G-tube ICD Codes: Z93.1 - Gastrostomy status SNOMED: 932126299, 855705435 (6) DM Status: unchanged Assessment/Plan ot pt diet gi f/u cbc bmp am dc plan w hh Subjective Constitutional: Reports: weakness Allergies: Coded Allergies: CLINDAMYCIN (Verified Allergy, Unknown, 08/11/17) IODINE (Verified Allergy, Unknown, 08/11/17) LATEX (Verified Allergy, Unknown, 08/11/17) LEVOFLOXACIN (Verified Allergy, Unknown, rash, 08/11/17) PENICILLINS (Verified Allergy, Unknown, 08/11/17) QUETIAPINE (Verified Allergy, Unknown, 08/11/17) SULFA (SULFONAMIDE ANTIBIOTICS) (Unverified Allergy, Unknown, 08/11/17) TETANUS VACCINES AND TOXOID (Unverified Allergy, Unknown, 08/11/17) Uncoded Allergies: FISH (Allergy, Unknown, 08/11/17) TAPE ADHERENT (Allergy, Unknown, 08/11/17) All Systems: reviewed and negative except above Subjective o2nc calm Objective Last 24 Hour Vital Signs Date Time Temp Pulse Resp B/P (MAP) Pulse Ox O2 Delivery O2 Flow Rate FiO2 09/16/17 09:00 73 111/65 09/16/17 08:00 97.5 73 20 111/65 95 Nasal Cannula 2.0 97.5 09/16/17 04:00 76 09/16/17 04:00 98.2 71 20 118/50 96 Nasal Cannula 2.0 98.2 09/16/17 00:00 74 09/16/17 00:00 98.2 75 20 101/48 96 Nasal Cannula 2.0 98.2 09/15/17 20:00 97.0 79 20 121/57 90 Nasal Cannula 2.0 97.0 09/15/17 20:00 82 09/15/17 16:00 84 09/15/17 16:00 98.2 81 17 106/60 95 Nasal Cannula 3.0 98.2 09/15/17 12:00 82 09/15/17 12:00 97.7 80 19 117/58 95 Nasal Cannula 3.0 97.7 Intake and Output 09/15/17 09/16/17 19:00 07:00 Intake Total 1333 ml 375 ml Balance 1333 ml 375 ml IV Total 900 ml 375 ml Tube Feeding 433 ml # Voids 3 # Bowel Movements 9 Laboratory Tests 09/15/17 13:00: White Blood Count 8.8, Red Blood Count 3.36L, Hemoglobin 10.1L, Hematocrit 31.1L , Mean Corpuscular Volume 93, Mean Corpuscular Hemoglobin 30.1, Mean Corpuscular Hemoglobin Concent 32.4, Red Cell Distribution Width 12.0, Platelet Count 204, Mean Platelet Volume 7.3, Neutrophils (%) (Auto) 77.8H, Lymphocytes ( %) (Auto) 9.3L, Monocytes (%) (Auto) 7.3, Eosinophils (%) (Auto) 5.2H, Basophils (%) (Auto) 0.5 09/16/17 07:35: White Blood Count 5.5, Red Blood Count 3.01L, Hemoglobin 9.6L, Hematocrit 28.1L , Mean Corpuscular Volume 93, Mean Corpuscular Hemoglobin 31.7H, Mean Corpuscular Hemoglobin Concent 34.0, Red Cell Distribution Width 12.1, Platelet Count 207, Mean Platelet Volume 7.0, Neutrophils (%) (Auto) 65.7, Lymphocytes (% ) (Auto) 19.3L, Monocytes (%) (Auto) 10.2H, Eosinophils (%) (Auto) 4.3H, Basophils (%) (Auto) 0.5, Sodium Level 138, Potassium Level 4.0, Chloride Level 109H, Carbon Dioxide Level 26, Anion Gap 3L, Blood Urea Nitrogen 12, Creatinine 0.5L, Estimat Glomerular Filtration Rate , Glucose Level 118H, Calcium Level 7.1L Height (Feet): 5 Height (Inches): 4.00 Weight (Pounds): 135 General Appearance: lethargic EENT: normal ENT inspection Neck: normal alignment Cardiovascular: normal peripheral pulses, normal rate, regular rhythm Respiratory/Chest: chest wall non-tender, lungs clear, normal breath sounds Abdomen: normal bowel sounds, non tender, soft Extremities: normal inspection Edema: no edema noted Arm (L), no edema noted Arm (R), no edema noted Leg (L), no edema noted Leg (R), no edema noted Pedal (L), no edema noted Pedal (R), no edema noted Generalized Neurologic: motor weakness Skin: normal pigmentation, warm/dry BREN FLOWERS Sep 16, 2017 10:00
[2017-09-16 12:00] VITALS: BP 132/70
[2017-09-16] MEDS: ALPRAZolam 0.5mg tab ORAL PRN (13:42)
--- NOTE | 2017-09-16 13:44 | General Progress Note ---
Assessment/Plan Assessment/Plan Assessment (1) Upper GI bleed ICD Codes: K92.2 - Gastrointestinal hemorrhage, unspecified SNOMED: 54138470 (2) DM (3) Feeding by G-tube ICD Codes: Z93.1 - Gastrostomy status SNOMED: 324045921, 680340590 (4) Parkinson disease ICD Codes: G20 - Parkinson's disease Assessment/Plan GTF pending video swallow eval repeat cbc ppi hold D/c until H&H stable Subjective Allergies: Coded Allergies: CLINDAMYCIN (Verified Allergy, Unknown, 08/11/17) IODINE (Verified Allergy, Unknown, 08/11/17) LATEX (Verified Allergy, Unknown, 08/11/17) LEVOFLOXACIN (Verified Allergy, Unknown, rash, 08/11/17) PENICILLINS (Verified Allergy, Unknown, 08/11/17) QUETIAPINE (Verified Allergy, Unknown, 08/11/17) SULFA (SULFONAMIDE ANTIBIOTICS) (Unverified Allergy, Unknown, 08/11/17) TETANUS VACCINES AND TOXOID (Unverified Allergy, Unknown, 08/11/17) Uncoded Allergies: FISH (Allergy, Unknown, 08/11/17) TAPE ADHERENT (Allergy, Unknown, 08/11/17) Subjective Patietn non verbal d/w private duty tolerating TF Dark stools H&H lower Objective Last 24 Hour Vital Signs Date Time Temp Pulse Resp B/P (MAP) Pulse Ox O2 Delivery O2 Flow Rate FiO2 09/16/17 12:00 97.7 74 20 132/70 100 Nasal Cannula 2.0 97.7 09/16/17 09:00 73 111/65 09/16/17 08:00 97.5 73 20 111/65 95 Nasal Cannula 2.0 97.5 09/16/17 08:00 74 09/16/17 04:00 76 09/16/17 04:00 98.2 71 20 118/50 96 Nasal Cannula 2.0 98.2 09/16/17 00:00 74 09/16/17 00:00 98.2 75 20 101/48 96 Nasal Cannula 2.0 98.2 09/15/17 20:00 97.0 79 20 121/57 90 Nasal Cannula 2.0 97.0 09/15/17 20:00 82 09/15/17 16:00 84 09/15/17 16:00 98.2 81 17 106/60 95 Nasal Cannula 3.0 98.2 Intake and Output 09/15/17 09/16/17 19:00 07:00 Intake Total 1333 ml 450 ml Balance 1333 ml 450 ml IV Total 900 ml 450 ml Tube Feeding 433 ml # Voids 3 # Bowel Movements 9 Laboratory Tests 09/16/17 07:35: White Blood Count 5.5, Red Blood Count 3.01L, Hemoglobin 9.6L, Hematocrit 28.1L , Mean Corpuscular Volume 93, Mean Corpuscular Hemoglobin 31.7H, Mean Corpuscular Hemoglobin Concent 34.0, Red Cell Distribution Width 12.1, Platelet Count 207, Mean Platelet Volume 7.0, Neutrophils (%) (Auto) 65.7, Lymphocytes (% ) (Auto) 19.3L, Monocytes (%) (Auto) 10.2H, Eosinophils (%) (Auto) 4.3H, Basophils (%) (Auto) 0.5, Sodium Level 138, Potassium Level 4.0, Chloride Level 109H, Carbon Dioxide Level 26, Anion Gap 3L, Blood Urea Nitrogen 12, Creatinine 0.5L, Estimat Glomerular Filtration Rate , Glucose Level 118H, Calcium Level 7.1L Height (Feet): 5 Height (Inches): 4.00 Weight (Pounds): 135 Objective Elderly thin WW NCAT supple CTA RR soft (+)GT Contacted RUE OBS ANJU GARCIA Sep 16, 2017 13:44
[2017-09-16] MEDS ORDERED: ALPRAZolam 0.5mg tab ORAL PRN ×2 (16:00→20:42)
[2017-09-16] MEDS ORDERED: NEUPRO 8 MG/24 HR ORAL SCH (16:00)
[2017-09-16] MEDS ORDERED: NEUPRO 2 MG/24 HR ORAL SCH (16:00)
[2017-09-16 16:01] VITALS: BP 132/51
[2017-09-16] MEDS ORDERED: Acetaminophen 650mg/20.3ml GT PRN ×2 (16:15)
[2017-09-16] MEDS ORDERED: NovoLOG Insulin Flexpen SUBQ SCH (18:00)
[2017-09-16 19:53] VITALS: BP 147/56
[2017-09-16] MEDS ORDERED: TraZODone 100mg tab GT PRN ×2 (21:00)
[2017-09-16] MEDS ORDERED: CRESTOR NG SCH (21:00)
[2017-09-16] MEDS ORDERED: Pantoprazole Inj IVP SCH (21:00)
[2017-09-17 00:28] VITALS: BP 121/54
[2017-09-17 04:37] VITALS: BP 131/54
[2017-09-17] MEDS: NovoLOG Insulin Flexpen SUBQ SCH (05:36)
[2017-09-17 07:28] LABS: BASOPHILS % (AUTO) 0.3 % (0.0-2.0); EOSINOPHILS % (AUTO) 3.3 % (0.0-3.0); HEMATOCRIT 33.1 % (37.0-47.0); HEMOGLOBIN 10.7 G/DL (12.0-16.0); LYMPHOCYTES % (AUTO) 16.7 % (20.0-45.0); MEAN CORPUSCULAR VOLUME 94 FL (80-99); MONOCYTES % (AUTO) 9.9 % (1.0-10.0); NEUTROPHILS % (AUTO) 69.8 % (45.0-75.0); PLATELET COUNT 223 K/UL (150-450); RED BLOOD COUNT 3.51 M/UL (4.20-5.40); RED CELL DISTRIBUTION WIDTH 12.1 % (11.6-14.8); WHITE BLOOD COUNT 6.9 K/UL (4.8-10.8)
[2017-09-17 07:51] LABS: ANION GAP 5 mmol/L (5-15); BLOOD UREA NITROGEN 11 mg/dL (7-18); CALCIUM 7.4 MG/DL (8.5-10.1); CARBON DIOXIDE 25 MMOL/L (21-32); CHLORIDE 109 MMOL/L (98-107); CREATININE 0.5 MG/DL (0.55-1.30); POTASSIUM 4.5 MMOL/L (3.5-5.1); SODIUM 139 MMOL/L (136-145)
[2017-09-17 08:03] VITALS: BP 122/58
--- NOTE | 2017-09-17 08:41 | General Progress Note ---
Assessment/Plan Problem List: (1) Anemia ICD Codes: D64.9 - Anemia, unspecified SNOMED: 968427238 (2) CVA (cerebral vascular accident) ICD Codes: I63.9 - Cerebral infarction, unspecified SNOMED: 766520648 (3) Parkinson disease ICD Codes: G20 - Parkinson's disease SNOMED: 19177865 (4) Upper GI bleed ICD Codes: K92.2 - Gastrointestinal hemorrhage, unspecified SNOMED: 55880399 (5) Feeding by G-tube ICD Codes: Z93.1 - Gastrostomy status SNOMED: 452295293, 549870530 (6) DM Status: stable, progressing, tolerating diet Assessment/Plan ot pt diet gi f/u cbc bmp am dc w hh if clear Subjective Constitutional: Reports: weakness Allergies: Coded Allergies: CLINDAMYCIN (Verified Allergy, Unknown, 08/11/17) IODINE (Verified Allergy, Unknown, 08/11/17) LATEX (Verified Allergy, Unknown, 08/11/17) LEVOFLOXACIN (Verified Allergy, Unknown, rash, 08/11/17) PENICILLINS (Verified Allergy, Unknown, 08/11/17) QUETIAPINE (Verified Allergy, Unknown, 08/11/17) SULFA (SULFONAMIDE ANTIBIOTICS) (Unverified Allergy, Unknown, 08/11/17) TETANUS VACCINES AND TOXOID (Unverified Allergy, Unknown, 08/11/17) Uncoded Allergies: FISH (Allergy, Unknown, 08/11/17) TAPE ADHERENT (Allergy, Unknown, 08/11/17) All Systems: reviewed and negative except above Subjective o2nc calm Objective Last 24 Hour Vital Signs Date Time Temp Pulse Resp B/P (MAP) Pulse Ox O2 Delivery O2 Flow Rate FiO2 09/17/17 08:03 97.4 75 18 122/58 98 Nasal Cannula 2.0 97.4 09/17/17 04:37 98.1 74 18 131/54 96 98.1 09/17/17 00:28 97.3 73 16 121/54 95 97.3 09/16/17 19:53 98.5 75 17 147/56 94 98.5 09/16/17 16:01 98.0 74 20 132/51 95 98.0 09/16/17 12:00 72 09/16/17 12:00 97.7 74 20 132/70 100 Nasal Cannula 2.0 97.7 09/16/17 09:00 73 111/65 Intake and Output 09/16/17 09/17/17 19:00 07:00 Intake Total 893 ml 656 ml Balance 893 ml 656 ml IV Total 525 ml 150 ml Tube Feeding 368 ml 506 ml # Voids 4 5 Laboratory Tests 09/17/17 05:05: White Blood Count 6.9, Red Blood Count 3.51L, Hemoglobin 10.7L, Hematocrit 33.1L , Mean Corpuscular Volume 94, Mean Corpuscular Hemoglobin 30.4, Mean Corpuscular Hemoglobin Concent 32.2, Red Cell Distribution Width 12.1, Platelet Count 223, Mean Platelet Volume 6.6, Neutrophils (%) (Auto) 69.8, Lymphocytes (% ) (Auto) 16.7L, Monocytes (%) (Auto) 9.9, Eosinophils (%) (Auto) 3.3H, Basophils (%) (Auto) 0.3, Sodium Level 139, Potassium Level 4.5, Chloride Level 109H, Carbon Dioxide Level 25, Anion Gap 5, Blood Urea Nitrogen 11, Creatinine 0.5L, Estimat Glomerular Filtration Rate , Glucose Level 123H, Calcium Level 7.4L Height (Feet): 5 Height (Inches): 4.00 Weight (Pounds): 135 General Appearance: lethargic EENT: normal ENT inspection Neck: normal alignment Cardiovascular: normal peripheral pulses, normal rate, regular rhythm Respiratory/Chest: chest wall non-tender, lungs clear, normal breath sounds Abdomen: normal bowel sounds, non tender, soft Extremities: normal inspection Edema: no edema noted Arm (L), no edema noted Arm (R), no edema noted Leg (L), no edema noted Leg (R), no edema noted Pedal (L), no edema noted Pedal (R), no edema noted Generalized Neurologic: motor weakness Skin: normal pigmentation, warm/dry BREN FLOWERS Sep 17, 2017 08:40
[2017-09-17] MEDS ORDERED: Cilostazol 100mg tab GT SCH ×2 (09:00)
[2017-09-17] MEDS ORDERED: metFORMIN 500mg tab ORAL SCH ×2 (09:00)
[2017-09-17 09:14] VITALS: BP 122/58
[2017-09-17] MEDS: Pantoprazole Inj IVP SCH (09:15)
[2017-09-17] MEDS ORDERED: CLOTRIMAZOLE15 GM TOPIC (10:30)
[2017-09-17] MEDS ORDERED: Sterile Water For Irrig 2000ml IRRIG ONE (11:29)
[2017-09-17] MEDS ORDERED: 1/2 NS 1000ml IV ONE (11:29)
--- NOTE | 2017-09-17 15:51 | General Progress Note ---
Assessment/Plan Assessment/Plan Assessment (1) Upper GI bleed ICD Codes: K92.2 - Gastrointestinal hemorrhage, unspecified SNOMED: 96144160 (2) DM (3) Feeding by G-tube ICD Codes: Z93.1 - Gastrostomy status SNOMED: 596463658, 603675029 (4) Parkinson disease ICD Codes: G20 - Parkinson's disease Assessment/Plan GTF elevate HOB Periodic cbc ppi d/c planning per PMD Subjective Allergies: Coded Allergies: CLINDAMYCIN (Verified Allergy, Unknown, 08/11/17) IODINE (Verified Allergy, Unknown, 08/11/17) LATEX (Verified Allergy, Unknown, 08/11/17) LEVOFLOXACIN (Verified Allergy, Unknown, rash, 08/11/17) PENICILLINS (Verified Allergy, Unknown, 08/11/17) QUETIAPINE (Verified Allergy, Unknown, 08/11/17) SULFA (SULFONAMIDE ANTIBIOTICS) (Unverified Allergy, Unknown, 08/11/17) TETANUS VACCINES AND TOXOID (Unverified Allergy, Unknown, 08/11/17) Uncoded Allergies: FISH (Allergy, Unknown, 08/11/17) TAPE ADHERENT (Allergy, Unknown, 08/11/17) Subjective Patient non verbal 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 H&H stable Objective Last 24 Hour Vital Signs Date Time Temp Pulse Resp B/P (MAP) Pulse Ox O2 Delivery O2 Flow Rate FiO2 09/17/17 09:14 75 122/58 09/17/17 08:03 97.4 75 18 122/58 98 Nasal Cannula 2.0 97.4 09/17/17 04:37 98.1 74 18 131/54 96 98.1 09/17/17 00:28 97.3 73 16 121/54 95 97.3 09/16/17 19:53 98.5 75 17 147/56 94 98.5 09/16/17 16:01 98.0 74 20 132/51 95 98.0 Intake and Output 09/16/17 09/17/17 19:00 07:00 Intake Total 893 ml 656 ml Balance 893 ml 656 ml IV Total 525 ml 150 ml Tube Feeding 368 ml 506 ml # Voids 4 5 Laboratory Tests 09/17/17 05:05: White Blood Count 6.9, Red Blood Count 3.51L, Hemoglobin 10.7L, Hematocrit 33.1L , Mean Corpuscular Volume 94, Mean Corpuscular Hemoglobin 30.4, Mean Corpuscular Hemoglobin Concent 32.2, Red Cell Distribution Width 12.1, Platelet Count 223, Mean Platelet Volume 6.6, Neutrophils (%) (Auto) 69.8, Lymphocytes (% ) (Auto) 16.7L, Monocytes (%) (Auto) 9.9, Eosinophils (%) (Auto) 3.3H, Basophils (%) (Auto) 0.3, Sodium Level 139, Potassium Level 4.5, Chloride Level 109H, Carbon Dioxide Level 25, Anion Gap 5, Blood Urea Nitrogen 11, Creatinine 0.5L, Estimat Glomerular Filtration Rate , Glucose Level 123H, Calcium Level 7.4L Height (Feet): 5 Height (Inches): 4.00 Weight (Pounds): 135 Objective Elderly thin WW NCAT supple CTA RR soft (+)GT Contacted RUE OBS ANJU GARCIA Sep 17, 2017 15:51
--- NOTE | 2017-09-19 07:22 | Discharge Summary ---
Discharge Summary Discharge Summary Discharge Summary DATE OF ADMISSION: 09/13/2017 DATE OF DISCHARGE: 09/17/2017 REASON FOR ADMISSION: 76 years old female with history of advanced Parkinson disease, CVA with right- sided weakness, hypertension, diabetes, dysphagia, G-tube, presented to emergency room for evaluation. Patient presented with coffee-ground emesis 2 earlier that day. Patient was nonverbal at baseline and therefore was unable to provide any information. No reported chest pain or shortness of breath. Laboratory workup revealed no leukocytosis, initially stable hemoglobin and hematocrit. Urinalysis unremarkable. EKG showed normal sinus rhythm, no acute ischemic changes. Chest x-ray revealed no acute cardiopulmonary disease. Blood pressure somewhat dropped during the emergency department stay, but improved with IV fluids. Patient admitted with diagnosis of upper GI bleeding to telemetry floor. CONSULTANTS: ID specialist Dr. Lopez GI specialist [facility] COURSE: Patient admitted to telemetry floor. GI consult was requested. Hemoglobin and hematocrit were closely monitored. Home medications were resumed with close management and monitoring of blood pressure and blood sugar. Patient initially kept nothing by mouth and started on the IV fluids and intravenous Protonix twice a day. Hemoglobin and hematocrit were closely monitored with goal to keep hemoglobin above 8. Patient was scheduled and subsequently undergone endoscopy with finding of anastomosis stricture and esophagitis. Afterwards, patient was started on G-tube feeding with strict aspiration and reflux precautions. Hemoglobin and hematocrit were closely monitored.PPI was continued. Hemoglobin and hematocrit remained stable; on the day of discharge hemoglobin -10.7 hematocrit -33.1. ID specialist followed. Patient had evidence of upper GI bleeding 2 prior to admission, but no evidence of aspiration. Chest x-ray was negative. Patient had no cough, patient was afebrile , with no leukocytosis. Urine culture grew Escherichia coli ESBL, however she had no urinary symptoms. Per ID specialist , it was colonization and no need for treatment. Patient exhibited Candidiasis at the G-tube site. Topical clotrimazole applied to G-tube site. ID recommended to monitor patient off antibiotics. Patient was working with physical and occupational therapists. No further upper GI bleeding. Hemoglobin and hematocrit stable. Patient was stable for discharge home with caregiver. FINAL DIAGNOSES: Upper GI bleeding. Dysphagia, feeding by G tube. Status post EGD :anastomosis stricture, esophagitis. Anemia. Diabetes mellitus . Hypertension. History of CVA with right-sided weakness Parkinson disease DISCHARGE MEDICATIONS: See Medication Reconciliation list. DISCHARGE INSTRUCTIONS: Patient was discharged home Follow up with primary care provide in one week. I have been assigned to dictate discharge summary for this account. I was not involved in the patient's management. Isacc (Wesjosé miguel,Hilary PETERSEN Sep 19, 2017 07:22
== END 2017-09-17 11:30 | disposition home or self-care (01) | DRG 378 ==
LOC: EDBEDREQ 10:14 → EMR 10:34 → 2E 10:35 → EDBEDREQ 11:48 → 2E 09-14 23:37 → 4W 09-16 14:48
PROC: 0D768ZZ Dilation of Stomach, Via Natural or Artificial Opening Endoscopic (ICD-10-PCS; principal; 2017-09-14 10:39)
PROC: 0D7A8ZZ Dilation of Jejunum, Via Natural or Artificial Opening Endoscopic (ICD-10-PCS; principal; 2017-09-14 10:39)
DX: K92.2 Gastrointestinal hemorrhage, unspecified (principal); I69.951 Hemiplegia and hemiparesis following unspecified cerebrovascular disease affecting right dominant side; Z43.1 Encounter for attention to gastrostomy; B37.89 Other sites of candidiasis; K56.699 Other intestinal obstruction unspecified as to partial versus complete obstruction; Z98.84 Bariatric surgery status; K92.0 Hematemesis; E11.9 Type 2 diabetes mellitus without complications; D64.9 Anemia, unspecified; G20 Parkinson's disease; R13.10 Dysphagia, unspecified; K20.9 Esophagitis, unspecified; Z88.1 Allergy status to other antibiotic agents; Z88.0 Allergy status to penicillin; Z88.2 Allergy status to sulfonamides; Z88.8 Allergy status to other drugs, medicaments and biological substances
CPT/HCPCS: 36415; 71045; 74018; 74230; 80048; 80053; 81003; 82962; 83690; 84484; 85025; 85610; 85730; 86850; 86900; 86901; 93005; 94003; 94150; 99285; J1815; J2405